=== PATIENT | male | born 1955 | race Caucasian/White ===

== ENCOUNTER → 2016-06-09 | Outpatient (CLI) | payer OTHER ==
[~2016-06-09] MED LIST: ACET-1256 PO; ASPI325T45 PO; ASPI81TA28 PO; BETA SITOSTEROL PO; CZR25 PO; DICY10CA55 PO; DOCU100C PO; GARL1200 PO; GARL705C PO; LOSA1TAB PO; MISCCAP80 PO; MULT-506 PO; NTRGSL/4 UT; RED1CAP5 PO; SAW160CA5 PO; SAW160TA PO; [UNRECOGNIZED DRUG - OTHER] PO
== END | disposition home or self-care (01) ==
LOC: C.PATHSPEC 18:05
PROVIDERS: ATTEND Dermatology
DX: L57.0 Actinic keratosis (principal)

== ENCOUNTER → 2016-07-03 | Outpatient (CLI) | payer OTHER ==
--- NOTE | 2016-07-03 18:15 | DIAGNOSTIC IMAGING REPORT ---
CT OF THE ABDOMEN AND PELVIS WITHOUT CONTRAST CLINICAL HISTORY: Left lower quadrant pain. COMPARISON STUDY: CT of the abdomen and pelvis July 06, 2014. TECHNIQUE: Axial images of the abdomen and pelvis were obtained without IV contrast. Images were reviewed in the axial, sagittal, and coronal planes. FINDINGS: No renal, ureteral or bladder calculi are present. There is no hydronephrosis or hydroureter. Evaluation of the abdomen and pelvis is multiple this unenhanced exam. The liver, spleen, adrenal glands and pancreas are unremarkable. There is no evidence for a bowel obstruction. The appendix is normal. There is colonic diverticulosis without evidence for acute diverticulitis. There is moderate vascular calcification. No suspicious skeletal lesions are identified. There is no lymphadenopathy or ascites. There is no biliary or pancreatic ductal dilatation. IMPRESSION: 1. No urinary calculi or hydronephrosis. 2. Suboptimal evaluation of the abdomen and pelvis given the lack of IV and oral contrast but no acute findings identified. Electronically signed by: Adrian Nunez M.D. 07/03/2016 6:13 PM Dictated Date/Time: 07/03/2016 6:09 PM
== END | disposition home or self-care (01) ==
LOC: C.CTS 17:36
PROVIDERS: ATTEND Family Medicine
DX: R10.32 Left lower quadrant pain (principal); K57.92 Diverticulitis of intestine, part unspecified, without perforation or abscess without bleeding

== ENCOUNTER 2016-09-22 12:25 | Emergency (ER) | payer OTHER ==
[~2016-09-22] VITALS: Ht 172.7 cm; Wt 70.5 kg
[~2016-09-22 12:25] MED LIST changes: -ASPI81TA28 PO; -CZR25 PO; -DICY10CA55 PO; -DOCU100C PO; -GARL1200 PO; -MISCCAP80 PO; -RED1CAP5 PO; -SAW160TA PO; -[UNRECOGNIZED DRUG - OTHER] PO
[2016-09-22 12:29] VITALS: TEMP 36.5; Ht 172.7 cm; Wt 70.5 kg
[2016-09-22] MEDS ORDERED: OPTIRAY 320 IV PRN (13:00)
[2016-09-22 13:25] LABS: BASO % 0.6 %; BASO ABS # 0.03 K/uL (0-0.2); COMPLETE YES; EOS % 1.6 %; HEMATOCRIT 42.5 % (42-52); LYMPH % 29.1 %; LYMPH ABS # 1.43 K/uL (1.2-3.4); MEAN CORPUSCULAR HEMOGLOBIN 31.6 pg (25-34); MEAN CORPUSCULAR HGB CONC 34.4 g/dl (32-36); MEAN PLATELET VOLUME 9.6 fL (7.4-10.4); NEUT % 59.7 %; PLATELET COUNT 279 K/uL (130-400); RED BLOOD COUNT 4.62 M/uL (4.7-6.1); WHITE BLOOD COUNT 4.91 K/uL (4.8-10.8)
[2016-09-22] MEDS ORDERED: SAW160TA PO (13:38)
[2016-09-22] MEDS ORDERED: ASPI81TA28 PO (13:38)
[2016-09-22] MEDS ORDERED: MULT-506 PO (13:38)
[2016-09-22] MEDS ORDERED: GARL1200 PO (13:38)
[2016-09-22] MEDS ORDERED: [UNRECOGNIZED DRUG - OTHER] PO (13:38)
[2016-09-22] MEDS ORDERED: RED1CAP5 PO (13:38)
[2016-09-22] MEDS ORDERED: NTRGSL/4 UT (13:38)
[2016-09-22] MEDS ORDERED: CZR25 PO (13:38)
[2016-09-22 13:42] LABS: BUN/CREATININE RATIO 11.5 (10-20); CALCIUM 9.1 mg/dl (8.5-10.1); CREATININE 1.1 mg/dl (0.60-1.40); POTASSIUM 4.5 mmol/L (3.5-5.1)
[2016-09-22 13:45] LABS: ALB/GLOB RATIO 1.1 (0.9-2)
--- NOTE | 2016-09-22 14:20 | EMERGENCY ROOM VISIT NOTE ---
History First contact with patient: 12:32 Chief Complaint: ABDOMINAL PAIN Stated Complaint: STOMACH PAIN Nursing Triage Summary: pt reports left abd pain started a couple days ago and has hx of diverticulitis. denies any n/v/d History of Present Illness The patient is a 61 year old male who presents to the Emergency Room with complaints of left lower quadrant abdominal pain for "a few days". The patient states last month, he experienced an episode of the same type of pain. The patient does report a history of diverticulitis which was diagnosed approximately 10-15 years ago, and states the symptoms have felt similar in the past. The patient describes episodic pain, lasting approximately one week at a time. The pain does come and go while he is having these episodes. He states he has been eating a high-fiber diet and taking probiotics, as his dentist put him on doxycycline approximately one week ago for a dental infection. The patient states he did see his dentist today, who recommended he discontinue the doxycycline due to his abdominal pain. The patient denies diarrhea, constipation, fever, chills, nausea, vomiting, and states his bowel movements have been normal. The patient did not eat any foods yesterday, and feels that a part of his abdominal pain could be related to not having food in his stomach. The patient denies tenderness on palpation, and describes the pain as achy/dull and 6/10. The patient states the pain localizes in the left lower quadrant, but does spread throughout the entire abdomen. He states he has not been able to find aggravating factors for his discomfort, but does state lying still alleviates the pain. The patient last had a colonoscopy 8-10 years ago in [place]. The patient states he did have a CT scan of the abdomen completed approximately one month ago, but this was done without IV or oral contrast, and the radiologist was unable to accurately interpret bowel disease on the scan. Review of Systems A complete 10 point review of systems was reviewed with the patient with pertinent positives and negatives as per history of present illness. All else were negative. Past Medical/Surgical History Medical Problems: (1) Ac Myocardial Infarct,Subendo Infarct,Initial Epis (2) Benign hypertension (3) Cardiac stent placement (4) Coronary Atherosclerosis Of [place] Coronary Vessel (5) Diverticulitis Colon (W/O Ment Of Hemorrhage) (6) Diverticulosis Colon (W/O Ment Of Hemorrhage) (7) Heart disease (8) Pneumonia Family History Hypertension Social History Smoking Status: Never Smoker Alcohol Use: heavy Drug Use: none Marital Status: Occupation Status: employed Current/Historical Medications Scheduled Aspirin (Aspirin Ec), 81 MG PO DAILY Garlic (Garlic), 2 CAP PO DAILY Losartan Potassium (Losartan Potassium), 25 MG PO DAILY Multivitamin (Multivitamin), 1 TAB PO DAILY Nitroglycerin (Nitrostat), 0.4 MG UT PRN Red Yeast Rice Extract (Red Yeast Rice), 1 CAP PO DAILY Saw [place] ([place]ren[place]ens) (Saw [place]), 160 MG PO DAILY [Beta Sisterol], 1 TAB PO DAILY Allergies Coded Allergies: Sulfa Drugs (Verified Allergy, Mild, 10/18/15) Atorvastatin (Verified Allergy, Unknown, mental disturabances, 10/18/15) Ciprofloxacin (Verified Allergy, Unknown, SHORTNESS OF BREATH, 10/18/15) Metronidazole (Verified Adverse Reaction, Intermediate, COBNFUSION, 10/18/15 ) Physical Exam Vital Signs Date Time Temp Pulse Resp B/P (MAP) Pulse Ox O2 Delivery O2 Flow Rate FiO2 09/22/16 17:39 55 16 147/91 99 09/22/16 16:22 72 20 144/88 99 Room Air 09/22/16 14:20 56 16 135/88 99 Room Air 09/22/16 12:29 36.5 61 18 125/82 98 Room Air Physical Exam VITALS: Vitals are noted on the nurse's note and reviewed by myself. Vital signs stable. GENERAL: This is a 61-year-old male, in no acute distress, nondiaphoretic, well- developed well-nourished. SKIN: The skin was without rashes, erythema, edema, or bruising. There is no tenting of the skin. Capillary reflex less than 2 seconds. HEAD: Normocephalic atraumatic. EARS: External auditory canals clear, tympanic membranes pearly hurd without erythema or effusion bilaterally. EYES: Pupils equal round and reactive to light and accommodation. Conjunctivae without injection, sclerae without icterus. Extraocular movements intact. NOSE: Patent, turbinates without inflammation or discharge. No sinus tenderness. MOUTH: Mucous membranes moist. Tonsils are not enlarged. Pharynx without erythema or exudate. Uvula midline. Airway patent. Tongue does not deviate. NECK: Supple without nuchal rigidity. No lymphadenopathy. No thyromegaly. Cervical spine is nontender. No JVD. HEART: Regular rate and rhythm without murmurs gallops or rubs. LUNGS: Clear to auscultation bilaterally without wheezes, rales or rhonchi. No dullness to percussion. No retractions or accessory muscle use. ABDOMEN: Positive bowel sounds x 4. Normal tympanic percussion. Soft, nontender, without masses or organomegaly. Hall sign negative. No guarding or rebound tenderness. MUSCULOSKELETAL: No muscle atrophy, erythema, or edema noted. Full range of motion without joint tenderness in all extremities. No tenderness to palpation. Normal gait. Strength 5/5 throughout. NEURO: Patient was alert and oriented to person place and time. Normal sensation to light and sharp touch. Deep tendon reflexes 2+ throughout. No focal neurological deficits. Medical Decision & Procedures ER Provider Diagnostic Interpretation: LABS: CBC without leukocytosis, anemia, thrombocytopenia. Lipase negative. CMP without abnormalities in the renal or hepatic function. Electrolytes normal. CT Scan Abd/Pelvis with IV and PO Contrast: FINDINGS: Lower chest: The heart is normal in size and configuration, without pericardial effusion. The lung bases and pleural spaces are clear. Liver: The contrast-enhanced liver is normal in size, contour, and attenuation. There is no intrahepatic biliary ductal dilatation. The hepatic veins and portal veins are patent. Gallbladder: Unremarkable. Spleen: Normal in size and attenuation. Pancreas: Unremarkable. Adrenal glands: Unremarkable. Kidneys: There is symmetric renal cortical enhancement. The kidneys are normal in size without hydronephrosis. Bowel: There are no transition zones indicate bowel obstruction. There is colonic diverticulosis. There is no evidence of acute diverticulitis. The appendix is not visualized with certainty. There are no findings to indicate acute appendicitis. Peritoneum: There is no intraperitoneal free air or abdominal ascites. There is a small fat-containing umbilical hernia. Vasculature: The abdominal aorta is normal in course and caliber. Adenopathy: None. Pelvic viscera: The prostate is mildly prominent. There are prostatic calcifications present. Skeletal structures: No destructive osseous lesions are seen. IMPRESSION: 1. No evidence of bowel obstruction. No evidence of free air 2. Diverticulosis. No evidence of acute diverticulitis 3. There are no findings to indicate acute appendicitis. Laboratory Results 09/22/16 13:15 Red Blood Count 4.62, Mean Corpuscular Volume 92.0, Mean Corpuscular Hemoglobin 31.6, Mean Corpuscular Hemoglobin Concent 34.4, Mean Platelet Volume 9.6, Neutrophils (%) (Auto) 59.7, Lymphocytes (%) (Auto) 29.1, Monocytes (%) (Auto) 9.0, Eosinophils (%) (Auto) 1.6, Basophils (%) (Auto) 0.6, Neutrophils # (Auto) 2.93, Lymphocytes # (Auto) 1.43, Monocytes # (Auto) 0.44, Eosinophils # (Auto) 0.08, Basophils # (Auto) 0.03 09/22/16 13:15 Test 09/22/16 13:15 White Blood Count 4.91 K/uL (4.8-10.8) Red Blood Count 4.62 M/uL (4.7-6.1) Hemoglobin 14.6 g/dL (14.0-18.0) Hematocrit 42.5 % (42-52) Mean Corpuscular Volume 92.0 fL (80-100) Mean Corpuscular Hemoglobin 31.6 pg (25-34) Mean Corpuscular Hemoglobin Concent 34.4 g/dl (32-36) Platelet Count 279 K/uL (130-400) Mean Platelet Volume 9.6 fL (7.4-10.4) Neutrophils (%) (Auto) 59.7 % Lymphocytes (%) (Auto) 29.1 % Monocytes (%) (Auto) 9.0 % Eosinophils (%) (Auto) 1.6 % Basophils (%) (Auto) 0.6 % Neutrophils # (Auto) 2.93 K/uL (1.4-6.5) Lymphocytes # (Auto) 1.43 K/uL (1.2-3.4) Monocytes # (Auto) 0.44 K/uL (0.11-0.59) Eosinophils # (Auto) 0.08 K/uL (0-0.5) Basophils # (Auto) 0.03 K/uL (0-0.2) RDW Standard Deviation 41.2 fL (36.4-46.3) RDW Coefficient of Variation 12.2 % (11.5-14.5) Immature Granulocyte % (Auto) 0.0 % Immature Granulocyte # (Auto) 0.00 K/uL (0.00-0.02) Anion Gap 4.0 mmol/L (3-11) Est Creatinine Clear Calc Drug Dose 69.9 ml/min Estimated GFR () 84.7 Estimated GFR (Non- 73.1 BUN/Creatinine Ratio 11.5 (10-20) Calcium Level 9.1 mg/dl (8.5-10.1) Total Bilirubin 0.5 mg/dl (0.2-1) Aspartate Amino Transf (AST/SGOT) 20 U/L (15-37) Alanine Aminotransferase (ALT/SGPT) 26 U/L (12-78) Alkaline Phosphatase 64 U/L (45-117) Total Protein 7.3 gm/dl (6.4-8.2) Albumin 3.8 gm/dl (3.4-5.0) Globulin 3.5 gm/dl (2.5-4.0) Albumin/Globulin Ratio 1.1 (0.9-2) Lipase 107 U/L (73-393) Medical Decision The patient was seen and evaluated as above. He presented with left lower quadrant abdominal pain for the past few days. The patient is concerned that this could be a flareup of his previously diagnosed diverticulitis. Labs, CT of the abdomen and pelvis with IV and oral contrast were ordered. I reviewed all labs, and discussed the findings with the patient. CT scan showed diverticulosis, but no diverticulitis or other acute findings. Differential diagnosis includes, but is not limited to: Diverticulitis, cholecystitis, appendicitis, viral gastroenteritis, IBS, nephrolithiasis, hydronephrosis, GERD, genitourinary causes, malignancy, and others. Based on the workup in the emergency department, I do feel that the patient's symptoms are likely related to possible viral infection other chronic problems, so I did encourage the patient to follow-up closely outpatient. Impression Primary Impression: Abdominal pain Departure Information Dispostion Home / Self-Care Condition GOOD Referrals Ned Singh D.O. (PCP) Patient Instructions ED Abdominal Pain Unkn Cause Male, My [facility] Additional Instructions You have been treated in the Emergency Department your Abdominal Pain. Laboratory results and imaging studies have ruled out any emergent causes for your abdominal pain which would warrant admission or surgery. For pain control, you can use the following [id number] medicines (if >12 yo): - Regular strength (325mg/tab) Tylenol (acetaminophen) 2 tabs every 4-6 hours as needed. Do not exceed 12 tablets in a 24 hour period. Avoid taking more than 4 grams (4000 mg) of Tylenol per day. This includes any other sources of acetaminophen you may take on a regular basis. - Regular strength (200 mg/tab) Advil (ibuprofen) 1-2 tabs every 4-6 hours as needed. Do not exceed a dose of 3200 mg per day. Drink plenty of water and stay well hydrated. As with any trip to the Emergency Department, you should follow-up with your Primary Care Provider from today's visit. You may want to consider contacting a chemical plant technical director for further evaluation of your symptoms, and if you are due for a repeat colonoscopy. Return to the emergency department if your symptoms persist despite treatment plan outlined above or if the following symptoms occur: increased fevers, chills , worsening nausea/vomiting, blood in your stool or urine. Problem Qualifiers Primary Impression: Abdominal pain Abdominal location: left lower quadrant Qualified Codes: R10.32 - Left lower quadrant pain
--- NOTE | 2016-09-22 16:11 | DIAGNOSTIC IMAGING REPORT ---
CT ABD/PELVIS IV AND ORAL CONT CLINICAL HISTORY: Left lower quadrant abdominal pain. History of diverticulitis. COMPARISON STUDY: 07/03/2016 TECHNIQUE: Following the IV administration of 120 mL of Optiray-320, CT scan of the abdomen and pelvis was performed from the lung bases to the proximal femurs. Images are reviewed in the axial, sagittal, and coronal planes. IV contrast was administered without complication. A dose lowering technique was utilized adhering to the principles of ALARA. CT DOSE: 293.31 mGy.cm FINDINGS: Lower chest: The heart is normal in size and configuration, without pericardial effusion. The lung bases and pleural spaces are clear. Liver: The contrast-enhanced liver is normal in size, contour, and attenuation. There is no intrahepatic biliary ductal dilatation. The hepatic veins and portal veins are patent. Gallbladder: Unremarkable. Spleen: Normal in size and attenuation. Pancreas: Unremarkable. Adrenal glands: Unremarkable. Kidneys: There is symmetric renal cortical enhancement. The kidneys are normal in size without hydronephrosis. Bowel: There are no transition zones indicate bowel obstruction. There is colonic diverticulosis. There is no evidence of acute diverticulitis. The appendix is not visualized with certainty. There are no findings to indicate acute appendicitis. Peritoneum: There is no intraperitoneal free air or abdominal ascites. There is a small fat-containing umbilical hernia. Vasculature: The abdominal aorta is normal in course and caliber. Adenopathy: None. Pelvic viscera: The prostate is mildly prominent. There are prostatic calcifications present. Skeletal structures: No destructive osseous lesions are seen. IMPRESSION: 1. No evidence of bowel obstruction. No evidence of free air 2. Diverticulosis. No evidence of acute diverticulitis 3. There are no findings to indicate acute appendicitis. Electronically signed by: Graham Archibald M.D. 09/22/2016 4:09 PM Dictated Date/Time: 09/22/2016 4:06 PM
[2016-09-22 17:39] VITALS: BP 147/91; PULSE 55; O2SAT 99
== END 2016-09-22 17:40 | disposition home or self-care (01) ==
LOC: C.EDB 12:26 → C.EDC 17:40
DX: R10.32 Left lower quadrant pain (principal); I25.2 Old myocardial infarction; I10 Essential (primary) hypertension; I25.10 Atherosclerotic heart disease of native coronary artery without angina pectoris; K57.32 Diverticulitis of large intestine without perforation or abscess without bleeding; Z87.01 Personal history of pneumonia (recurrent); Z82.49 Family history of ischemic heart disease and other diseases of the circulatory system; Z79.82 Long term (current) use of aspirin; Z79.899 Other long term (current) drug therapy

== ENCOUNTER 2016-10-15 04:20 | Emergency (ER) | payer OTHER ==
[~2016-10-15] VITALS: Ht 172.7 cm; Wt 72.1 kg
[~2016-10-15 04:20] MED LIST changes: -ACET-1256 PO; -ASPI325T45 PO; +ASPI81TA28 PO; -BETA SITOSTEROL PO; +CZR25 PO; +GARL1200 PO; -GARL705C PO; -LOSA1TAB PO; +RED1CAP5 PO; -SAW160CA5 PO; +SAW160TA PO; +[UNRECOGNIZED DRUG - OTHER] PO
[2016-10-15 04:24] VITALS: Ht 172.7 cm; Wt 72.1 kg
[2016-10-15] MEDS ORDERED: SODIUM CHLORIDE 0.9% 1000ML 1,000 ML IV STA ×2 (04:40)
[2016-10-15] MEDS ORDERED: DICYCLOMINE HCL 10 MG/ML 2 ML AMP IM ONE (04:45)
[2016-10-15 05:01] LABS: BASO % 0.5 %; BASO ABS # 0.03 K/uL (0-0.2); COMPLETE YES; EOS % 2.3 %; HEMATOCRIT 41.3 % (42-52); IG% 0.3 %; LYMPH % 31.4 %; LYMPH ABS # 2.04 K/uL (1.2-3.4); MEAN CELL VOLUME 91.8 fL (80-100); MEAN CORPUSCULAR HEMOGLOBIN 30.9 pg (25-34); MEAN CORPUSCULAR HGB CONC 33.7 g/dl (32-36); MEAN PLATELET VOLUME 9.7 fL (7.4-10.4); MONO % 10.3 %; NEUT % 55.2 %; PLATELET COUNT 297 K/uL (130-400)
[2016-10-15 05:20] LABS: ALT/SGPT 25 U/L (12-78); AST/SGOT 19 U/L (15-37); BLOOD UREA NITROGEN 13 mg/dl (7-18); CALCIUM 8.9 mg/dl (8.5-10.1); CARBON DIOXIDE 28 mmol/L (21-32); CHLORIDE 107 mmol/L (98-107); GLUCOSE 99 mg/dl (70-99); POTASSIUM 3.6 mmol/L (3.5-5.1); SODIUM 141 mmol/L (136-145)
[2016-10-15 05:24] LABS: ALKALINE PHOSPHATASE 74 U/L (45-117)
--- NOTE | 2016-10-15 05:43 | EMERGENCY ROOM VISIT NOTE ---
History First contact with patient: 04:31 Chief Complaint: ABDOMINAL PAIN Stated Complaint: RAPID HEART BEAT,COLD CHILLS,ABDOMINAL PAIN Nursing Triage Summary: c/o left lower abd pain x 1 week with nausea and constipation. LBM today. History of Present Illness The patient is a 61 year old male who presents to the Emergency Room with complaints of ongoing left lower quadrant abdominal cramping for the past week and a half. Patient has seen [facility] in the past. He describes pain as cramping, ranging in severity 2 out of 10. Nothing makes it better or worse. It does not radiate. This is at the left lower quadrant. He had a negative colonoscopy in the past for polyps. He does have diverticulosis. He's had diverticulitis. This feels different. He had a CAT scan here in this facility a few days ago that was negative. Patient also saw the family care doctor yesterday. He had further blood work done. Patient denies chest pain, dyspnea , fever, chills, cough, congestion, vomiting, diarrhea, back pain, penile pain, testicular pain, urinary symptoms. Review of Systems See HPI for pertinent positives & negatives. A total of 10 systems reviewed and were otherwise negative. Past Medical/Surgical History Medical Problems: (1) Ac Myocardial Infarct,Subendo Infarct,Initial Epis (2) Benign hypertension (3) Cardiac stent placement (4) Coronary Atherosclerosis Of [place] Coronary Vessel (5) Diverticulitis Colon (W/O Ment Of Hemorrhage) (6) Diverticulosis Colon (W/O Ment Of Hemorrhage) (7) Heart disease (8) Pneumonia Family History Hypertension Social History Smoking Status: Former Smoker Alcohol Use: heavy Drug Use: none Marital Status: Occupation Status: employed Current/Historical Medications Scheduled Aspirin (Aspirin Ec), 81 MG PO DAILY Garlic (Garlic), 2 CAP PO DAILY Losartan Potassium (Losartan Potassium), 25 MG PO DAILY Multivitamin (Multivitamin), 1 TAB PO DAILY Nitroglycerin (Nitrostat), 0.4 MG UT PRN Red Yeast Rice Extract (Red Yeast Rice), 1 CAP PO DAILY Saw [place] (Serenoa Repens) (Saw [place]), 160 MG PO DAILY [Beta Sisterol], 1 TAB PO DAILY Allergies Coded Allergies: Sulfa Drugs (Verified Allergy, Mild, 10/18/15) Atorvastatin (Verified Allergy, Unknown, mental disturabances, 10/18/15) Ciprofloxacin (Verified Allergy, Unknown, SHORTNESS OF BREATH, 10/18/15) Metronidazole (Verified Adverse Reaction, Intermediate, COBNFUSION, 10/18/15 ) Physical Exam Vital Signs Date Time Temp Pulse Resp B/P (MAP) Pulse Ox O2 Delivery O2 Flow Rate FiO2 10/15/16 05:04 56 18 139/89 98 Room Air 10/15/16 04:57 Room Air 10/15/16 04:57 Room Air 10/15/16 04:24 36.5 73 16 150/95 98 Room Air Physical Exam VITALS: Vitals are noted on the nurse's note and reviewed by myself. Vital signs stable. GENERAL:pleasant male, in no acute distress, nondiaphoretic, well-developed well -nourished. SKIN: The skin was without rashes, erythema, edema, or bruising. There is no tenting of the skin. Capillary reflex less than 2 seconds. HEAD: Normocephalic atraumatic. EARS: External auditory canals clear, tympanic membranes pearly hurd without erythema or effusion bilaterally. EYES: Pupils equal round and reactive to light and accommodation. Conjunctivae without injection, sclerae without icterus. Extraocular movements intact. NOSE: Patent, turbinates without inflammation or discharge. MOUTH: Mucous membranes moist. Pharynx without erythema or exudate. Uvula midline. Airway patent. Tongue does not deviate. NECK: Supple without nuchal rigidity. No lymphadenopathy. No thyromegaly. Cervical spine is nontender. No JVD. HEART: Regular rate and rhythm without murmurs gallops or rubs. LUNGS: Clear to auscultation bilaterally without wheezes, rales or rhonchi. No dullness to percussion. No retractions or accessory muscle use. ABDOMEN: Positive bowel sounds x 4. Normal tympanic percussion. Soft, nontender, without masses or organomegaly. Hall sign negative. No guarding or rebound tenderness. no CVA tenderness MUSCULOSKELETAL: No muscle atrophy, erythema, or edema noted. NEURO: Patient was alert and oriented to person place and time. Normal sensation to light and sharp touch. No focal neurological deficits. Medical Decision & Procedures Laboratory Results 10/15/16 04:35 Red Blood Count 4.50, Mean Corpuscular Volume 91.8, Mean Corpuscular Hemoglobin 30.9, Mean Corpuscular Hemoglobin Concent 33.7, Mean Platelet Volume 9.7, Neutrophils (%) (Auto) 55.2, Lymphocytes (%) (Auto) 31.4, Monocytes (%) (Auto) 10.3, Eosinophils (%) (Auto) 2.3, Basophils (%) (Auto) 0.5, Neutrophils # (Auto ) 3.59, Lymphocytes # (Auto) 2.04, Monocytes # (Auto) 0.67, Eosinophils # (Auto ) 0.15, Basophils # (Auto) 0.03 10/15/16 04:35 Test 10/15/16 04:35 10/15/16 04:44 White Blood Count 6.50 K/uL (4.8-10.8) Red Blood Count 4.50 M/uL (4.7-6.1) Hemoglobin 13.9 g/dL (14.0-18.0) Hematocrit 41.3 % (42-52) Mean Corpuscular Volume 91.8 fL (80-100) Mean Corpuscular Hemoglobin 30.9 pg (25-34) Mean Corpuscular Hemoglobin Concent 33.7 g/dl (32-36) Platelet Count 297 K/uL (130-400) Mean Platelet Volume 9.7 fL (7.4-10.4) Neutrophils (%) (Auto) 55.2 % Lymphocytes (%) (Auto) 31.4 % Monocytes (%) (Auto) 10.3 % Eosinophils (%) (Auto) 2.3 % Basophils (%) (Auto) 0.5 % Neutrophils # (Auto) 3.59 K/uL (1.4-6.5) Lymphocytes # (Auto) 2.04 K/uL (1.2-3.4) Monocytes # (Auto) 0.67 K/uL (0.11-0.59) Eosinophils # (Auto) 0.15 K/uL (0-0.5) Basophils # (Auto) 0.03 K/uL (0-0.2) RDW Standard Deviation 41.1 fL (36.4-46.3) RDW Coefficient of Variation 12.2 % (11.5-14.5) Immature Granulocyte % (Auto) 0.3 % Immature Granulocyte # (Auto) 0.02 K/uL (0.00-0.02) Anion Gap 6.0 mmol/L (3-11) Est Creatinine Clear Calc Drug Dose 69.9 ml/min Estimated GFR () 84.7 Estimated GFR (Non- 73.1 BUN/Creatinine Ratio 12.0 (10-20) Calcium Level 8.9 mg/dl (8.5-10.1) Total Bilirubin 0.2 mg/dl (0.2-1) Direct Bilirubin < 0.1 mg/dl (0-0.2) Aspartate Amino Transf (AST/SGOT) 19 U/L (15-37) Alanine Aminotransferase (ALT/SGPT) 25 U/L (12-78) Alkaline Phosphatase 74 U/L (45-117) Troponin I < 0.015 ng/ml (0-0.045) Total Protein 7.3 gm/dl (6.4-8.2) Albumin 3.7 gm/dl (3.4-5.0) Lipase 109 U/L (73-393) Bedside Lactic Acid Venous 0.82 mmol/L (0.90-1.70) Medications Administered Medications (Trade) Dose Ordered Sig/Josephine Route Start Time Stop Time Status Last Admin Dose Admin Sodium Chloride 1,000 ml @ 999 mls/hr Q1H1M STAT IV 10/15/16 04:40 10/15/16 05:40 10/15/16 05:05 999 MLS/HR ED Course Prior records/ancillary studies reviewed. Triage Nursing notes reviewed. The patient's history was concerning for abdominal pain. Differential diagnosis: Etiologies such as IBS, appendicitis, diverticulitis, PUD, biliary pathology, UTI, pancreatitis, obstruction, mesenteric ischemia, aortic pathology, infections, inflammatory bowel disease, renal colic, as well as others were entertained. Physical examination findings: As above. ER treatment provided: Bentyl, IV fluids On reassessment the patient felt better. Diagnostics interpreted by me: ECG: Normal sinus, normal nose, left axis deviation, no acute ST-T wave changes. Impression normal sinus rhythm with a left axis deviation interpreted by myself unchanged from prior per chart review The labs revealed no leukocytosis. Negative lactic acid. Imaging studies: CT scan from a few days ago was reviewed and negative Exam and history seem consistent with abdominal cramping that could be related to IBS. Patient had a CT scan a few days ago that was negative. He had no pain on exam. He is well-appearing. He felt better after the Bentyl. He is advised to follow-up with his GI doctor in a few days or here in the ER sooner for vomiting, fevers, vomiting, worsening signs or symptoms or as needed. He was advised to take medications as directed and do a bland diet. By the evaluation outlined above emergent etiologies such as appendicitis, diverticulitis, PUD, biliary pathology, UTI, pancreatitis, obstruction, mesenteric ischemia, aortic pathology, infections, inflammatory bowel disease, renal colic, as well as others were deemed relatively unlikely. The pt informed about the findings as listed above. All questions were answered and pleased with the treatment. Return instructions were outlined and the patient was discharged in stable condition. Outpatient prescription management: Bentyl Referral: The patient was referred back to their primary care physician and GI for follow- up in 2 to 3 days for a recheck of the current condition. Case reviewed with my attending Medical Decision as above Impression Primary Impression: Abdominal cramping Departure Information Dispostion Home / Self-Care Condition GOOD Referrals Ned Singh D.O. (PCP) Patient Instructions [facility] Additional Instructions Bentyl 10 m tablet every 6-8 hours as needed for abdominal cramping. Recommend bland diet. Rest and drink plenty of fluids as tolerated. Continue current medications. Avoid strenuous activities and anything that worsens your pain. Resume normal activities once your symptoms resolve. Return to the ER immediately for worsening or abdominal pain, vomiting, fevers , chest pains, difficulty breathing, worsening of your condition, or as needed. Follow up with your primary physician and GI doctor in 2-3 days for a recheck of your current condition. Let them know that you were in the ER.
[2016-10-15] MEDS ORDERED: DICY10CA55 PO (05:44)
[2016-10-15] MEDS ORDERED: BENTYL HOME PACK 10 MG VIAL PO ONE (05:45)
[2016-10-15 05:46] VITALS: TEMP 36.5
[2016-10-15] MEDS ORDERED: MISCCAP80 PO (05:54)
[2016-10-15] MEDS ORDERED: DOCU100C PO (05:56)
[2016-10-15 06:27] VITALS: BP 128/79; PULSE 58; O2SAT 98
== END 2016-10-15 06:17 | disposition home or self-care (01) ==
LOC: C.EDB 04:21 → C.EDA 06:17
DX: R10.32 Left lower quadrant pain (principal); I25.10 Atherosclerotic heart disease of native coronary artery without angina pectoris; I10 Essential (primary) hypertension; Z95.5 Presence of coronary angioplasty implant and graft; Z87.01 Personal history of pneumonia (recurrent); Z82.49 Family history of ischemic heart disease and other diseases of the circulatory system; Z87.891 Personal history of nicotine dependence; Z79.82 Long term (current) use of aspirin; Z79.899 Other long term (current) drug therapy

== ENCOUNTER 2017-06-01 02:28 | Emergency (ER) | payer OTHER ==
[~2017-06-01] VITALS: Ht 172.7 cm; Wt 74.1 kg
[~2017-06-01 02:28] MED LIST changes: +DOCU100C PO; +MISCCAP80 PO
[2017-06-01 02:37] VITALS: BP 151/98; PULSE 72; TEMP 36.7; O2SAT 97; Ht 172.7 cm; Wt 74.1 kg
[2017-06-01] MEDS ORDERED: DOXY100C PO (03:04)
--- NOTE | 2017-06-01 08:13 | EMERGENCY ROOM VISIT NOTE ---
ED Visit Note First contact with patient: 02:41 CHIEF COMPLAINT: Tick bite HISTORY OF PRESENT ILLNESS: This 62-year-old male patient presents to the emergency department after they noticed a tick embedded on the left side of the abdomen. The patient did try to remove it. It had been on for less than 24 hours. The patient's tetanus shot is reportedly up-to-date. The patient denies any rashes, fevers, chills, or lightheadedness. The patient denies joint tenderness. REVIEW OF SYSTEMS: A 6 system review of systems was completed with positives and pertinent negatives listed in the HPI. ALLERGIES: See EMR MEDICATIONS: See EMR PMH: see EMR SOCIAL HISTORY: Lives locally PHYSICAL EXAM: Vital Signs: Reviewed Nurse's notes, vital signs stable. GENERAL : White male, in no acute distress, well-developed, well-nourished. SKIN: There is no tick embedded in the patient's left side abdomen as clinically concerned, however there is an area of inflammation and circular rash around where the stick was reported to be located..The skin is otherwise clear. NEUROLOGICAL: Alert and oriented to person place and time, cooperative. Sensory and motor functions grossly intact. ED COURSE: I examined the patient. He appears to have removed a tick from his left side abdominal wall with subsequent irritation of the skin. The patient is requesting doxycycline, and will be given a short course of this. he was otherwise to follow with his primary care physician for further management. He was otherwise invited back to the ER with any new, worsening, or concerning symptoms. Problem List Medical Problems: (1) Ac Myocardial Infarct,Subendo Infarct,Initial Epis Status: Resolved (2) Benign hypertension Status: Chronic (3) Cardiac stent placement Status: Resolved (4) Coronary Atherosclerosis Of [place] Coronary Vessel Status: Chronic (5) Diverticulitis Colon (W/O Ment Of Hemorrhage) Status: Resolved (6) Diverticulosis Colon (W/O Ment Of Hemorrhage) Status: Chronic (7) Heart disease Status: Chronic (8) Pneumonia Status: Resolved Current/Historical Medications Scheduled Aspirin (Aspirin Ec), 81 MG PO DAILY Doxycycline Hyclate (Vibramycin), 100 MG PO BID Garlic (Garlic), 2 CAP PO DAILY Losartan Potassium (Losartan Potassium), 25 MG PO DAILY Multivitamin (Multivitamin), 1 TAB PO DAILY Nitroglycerin (Nitrostat), 0.4 MG UT PRN Probiotic Product (Probiotic), 1 CAP PO DAILY Saw [place] ([place] Repens) (Saw [place]), 160 MG PO DAILY [Beta Sisterol], 1 TAB PO DAILY Scheduled PRN Docusate Sodium (Stool Softener), 100 MG PO DAILY PRN for Constipation Allergies Coded Allergies: Sulfa Drugs (Verified Allergy, Mild, 06/01/17) Atorvastatin (Verified Allergy, Unknown, mental disturabances, 06/01/17) Ciprofloxacin (Verified Allergy, Unknown, SHORTNESS OF BREATH, 06/01/17) Metronidazole (Verified Adverse Reaction, Intermediate, COBNFUSION, ) Vital Signs Date Time Temp Pulse Resp B/P (MAP) Pulse Ox O2 Delivery O2 Flow Rate FiO2 06/01/17 02:37 36.7 72 18 151/98 97 Room Air Departure Information Impression Primary Impression: Tick bite Dispostion Home / Self-Care Condition GOOD Prescriptions Doxycycline Hyclate (VIBRAMYCIN) 100 Mg Cap 100 MG PO BID for 7 Days, #14 CAP Prov: Chaz Lucero PA-C 06/01/17 Referrals Ned Singh D.O. Forms HOME CARE DOCUMENTATION FORM, IMPORTANT VISIT INFORMATION Patient Instructions My [facility] Additional Instructions You were seen and evaluated today on an emergency basis only. This is not a substitute for, or an effort to provide, complete comprehensive medical care. It is not possible to recognize and treat all injuries or illnesses in a single emergency department visit. For this reason it is recommended that you followup with your primary care physician with any ongoing or persisting symptoms. Take doxycycline 100 mg twice daily for the next 7 days You are welcome to return to the emergency department anytime with new, worsening, or concerning symptoms.
== END 2017-06-01 03:14 | disposition home or self-care (01) ==
LOC: C.EDB 02:29 → C.EDA 03:14
DX: S30.861A Insect bite (nonvenomous) of abdominal wall, initial encounter (principal); W57.XXXA Bitten or stung by nonvenomous insect and other nonvenomous arthropods, initial encounter; I10 Essential (primary) hypertension; I25.10 Atherosclerotic heart disease of native coronary artery without angina pectoris; Z95.5 Presence of coronary angioplasty implant and graft; Z88.2 Allergy status to sulfonamides; Z88.1 Allergy status to other antibiotic agents; Z88.8 Allergy status to other drugs, medicaments and biological substances

== ENCOUNTER → 2017-06-18 | Outpatient (CLI) | payer OTHER ==
[~2017-06-18] MED LIST changes: -RED1CAP5 PO
[2017-06-18 12:30] LABS: HEMATOCRIT 44.9 % (42-52); HEMOGLOBIN 14.7 g/dL (14.0-18.0); MEAN CELL VOLUME 92.4 fL (80-100); MEAN CORPUSCULAR HEMOGLOBIN 30.2 pg (25-34); MEAN CORPUSCULAR HGB CONC 32.7 g/dl (32-36); PLATELET COUNT 298 K/uL (130-400); RED CELL DISTRIBUTION WIDTH CV 12.8 % (11.5-14.5); RED CELL DISTRIBUTION WIDTH SD 43.5 fL (36.4-46.3); WHITE BLOOD COUNT 4.72 K/uL (4.8-10.8)
[2017-06-18 13:35] LABS: ALBUMIN 3.9 gm/dl (3.4-5.0); ALT/SGPT 33 U/L (12-78); AST/SGOT 24 U/L (15-37); BLOOD UREA NITROGEN 23 mg/dl (7-18); CALCIUM 8.6 mg/dl (8.5-10.1); CARBON DIOXIDE 27 mmol/L (21-32); CREATININE 1.17 mg/dl (0.60-1.40); GLUCOSE 94 mg/dl (70-99); SODIUM 139 mmol/L (136-145)
[2017-06-18 13:49] LABS: ALKALINE PHOSPHATASE 66 U/L (45-117); TOTAL PROTEIN 7.4 gm/dl (6.4-8.2)
== END | disposition home or self-care (01) ==
LOC: C.LAB1850 10:58
PROVIDERS: ATTEND Internal Medicine Cardiovascular Disease
DX: E78.5 Hyperlipidemia, unspecified (principal); I10 Essential (primary) hypertension; A69.20 Lyme disease, unspecified

== ENCOUNTER 2021-01-23 17:21 | Inpatient (IN) ==
--- NOTE | 2021-01-23 17:40 | Emergency Department Note ---
Impression & Plan Precordial chest pain, History of OK (myocardial infarction), Elevated troponin ED Provider Note NAME: FRANCESCO STEVENS AGE: 65 SEX: M : 1955 ARRIVES VIA: Ambulance INFORMANT: [Patient][ems] ED PROVIDER(S): [Yony Muñiz MD] CHIEF COMPLAINT: Chest pain HISTORY OF PRESENT ILLNESS: The patient is a 65-year-old male with known coronary disease. He had an OK abo ut 10 years ago and has 1 coronary stent. Patient was biking around 60 to 70 miles a week for some time but then injured his meniscus. He has been really not very active lately. Patient states that for 5 days, he has had episodes of chest pain that goes to his arms. He describes it as pressure and almost a sensation of rawness to his lungs. The patient states the episodes of discomfort come on with exertion. Patient states that today, a short time ago, he tried to walk outside. Within about 50 yards of his walk, he developed pressure across his chest and arms. He felt short of breath. No sweating or nausea. He took a nitroglycerin and within 15 minutes, symptoms resolved. He presents by EMS. The patient did see cardiology yesterday. They were in the process of arranging a stress test. The patient states that his symptoms feel similar to when he had his heart attack around 10 years ago. The patient is vaccinated for COVID-19. REVIEW OF SYSTEMS: See HPI for pertinent positives and negatives. A total of ten systems were reviewed and were otherwise negative. PMHx/PSHx: See Below SOCIAL HISTORY: See Below. PHYSICAL EXAM: GENERAL: Patient is in no acute distress. HEENT: No acute trauma, normocephalic atraumatic, mucous membranes moist, no nasal congestion, no scleral icterus. NECK: No stridor, no adenopathy, no meningismus, trachea is midline. LUNGS: Clear to auscultation bilaterally, no wheeze, no rhonchi, breath sounds equal. HEART: Without murmurs gallops or rubs, regular rate and rhythm. ABDOMEN: Soft, nontender, bowel sounds positive, no hernias, no peritonitis. EXTREMITIES: No cyanosis or edema, full range of motion of all the joints witho ut pain or difficulty, no signs for acute trauma. NEUROLOGIC: Oriented x 3, no acute motor or sensory deficits, no focal weakness. SKIN: No rash, no jaundice, no diaphoresis. DIFFERENTIAL DIAGNOSIS: Cardiac ischemia, aortic dissection, pulmonary embolism, pneumothorax, pneumo yuval, pericarditis, myocarditis, esophageal rupture, GERD, cholecystitis, pancreatitis, musculoskeletal, as well as other pathologies. EMERGENCY DEPARTMENT COURSE/PROCEDURES: ECG: Indication was chest pain. The ECG shows a normal sinus rhythm with a rate of 71. There is some LVH present. There is no ST elevation, no PVCs. The QTc is 406. Continuous Cardiac Monitoring: An order was placed for continuous cardiac monitoring. The monitor shows a rate of 73 with normal sinus rhythm. MEDICAL DECISION MAKING: There is no leukocytosis. A very mild anemia was noted. There is a normal platelet count. No coagulopathy. No significant electrolyte abnormality or kidney failure. No concerning liver enzyme elevation. No evidence for pancreatitis. ECG showed a normal sinus rhythm, no obvious ischemia. Cardiac enzyme testing x1 was somewhat elevated. This troponin elevation is consistent with cardiac injury or strain. Covid testing returned negative. Chest x-ray did not show pneumonia, mediastinal widening or pneumothorax. Patient presents with an episode of exertional chest pain which resolved with nitroglycerin. The patient has known coronary disease and presents with chest pain which sounds cardiac in nature. He does have an elevated cardiac troponin. Admission/observation is warranted. The patient was given oral aspirin, nitroglycerin paste. I did speak with the patient and case management. The on-call hospitalist was consulted. Past Med/Surg History Medical History Abdominal pain Anxiety Chest pain Chest pain Chills Corneal abrasion, left Dyslipidemia Elevated lipase Groin rash Heart palpitations Hx of coronary artery disease Hx of myocardial infarction Hypertension Palpitations Palpitations Surgical History Hx of heart artery stent Family History (Updated 01/23/21 @ 21:20 by Yancy Orr MD) Father , Age 42 from an [place] Coronary heart disease Other Family history non-contributory No family history of adverse response to anesthesia No family history of bleeding disorder Social History Smoking Status: Former smoker Hx Alcohol Use: Yes Alcohol type: wine Alcohol Intake Frequency Comment: 1 GLASS WINE Hx Substance Use: No Preferred Language: Burmese marital status: Current Living Situation: Alone current occupational status: employed Feels Safe at Home: Yes Allergies Allergies Allergy/AdvReac Type Severity Reaction Status Date / Time atorvastatin Allergy Unknown mental Verified 10/15/20 14:48 disturabances ciprofloxacin Allergy Unknown SHORTNESS Verified 01/23/21 17:49 OF BREATH metronidazole AdvReac Intermediate COBNFUSION Verified 01/23/21 17:49 Sulfa Drugs Allergy Unknown Uncoded 01/23/21 17:49 Home Meds Home Medications Medication Instructions Recorded Confirmed garlic 1,000 mg capsule 2,000 mg PO DAILY 02/11/18 01/23/21 montelukast 10 mg tablet 10 mg PO DAILY 02/11/18 01/23/21 multivitamin 1 tab PO DAILY 02/11/18 01/23/21 saw palmetto 160 mg capsule 160 mg PO DAILY 02/11/18 01/23/21 fluticasone propionate 110 2 puff INHALATION BID PRN 09/13/18 01/23/21 mcg/actuation HFA aerosol inhaler (Flovent HFA) aspirin 81 mg tablet,delayed 81 mg PO DAILY 01/23/21 01/23/21 release (Aspirin Low Dose) nitroglycerin 0.4 mg sublingual 0.4 mg SUBLINGUAL UD PRN 01/23/21 01/23/21 tablet Previous Rx's Medication Instructions Recorded cyclobenzaprine 5 mg tablet 5 mg PO TID PRN #30 tab 02/15/18 atorvastatin 10 mg tablet 10 mg PO Q OTHER DAY #90 tab 03/28/20 losartan 25 mg tablet 25 mg PO BID #180 tab 01/22/21 Results & Data (ED) Vital Signs Vital Signs - 24 hr 01/23/21 17:23 01/23/21 18:43 Temperature 36.8 C Temperature Source Oral Pulse Rate 72 Pulse Rate [Right Finger] 73 71 Pulse Rhythm [Right Finger] Regular Regular Pulse Strength [Right Finger] Normal Normal Respiratory Rate 16 16 Respiratory Effort / Characteristics Non-Labored Non-Labored Respiratory Depth Normal Normal Respiratory Pattern Regular Blood Pressure 142/90 H Blood Pressure [Right Arm] 129/88 138/97 Blood Pressure Mean 107 Blood Pressure Mean [Right Arm] 101 110 Blood Pressure Position Lying Blood Pressure Position [Right Arm] Sitting Pulse Oximetry 98 99 Oxygen Delivery Method Room Air Room Air Sepsis Recent Fever Within 48 Hours No Sepsis New/Unexplained Change in Mental Status No Sepsis Action Taken by Nursing No Action Required Home Medications Current Medication List: was personally reviewed by me Laboratory Data Attestation: I reviewed the patient's lab results. Result diagrams: 01/23/21 17:30 01/23/21 17:30 Lab Results 01/23/21 01/23/21 01/23/21 Range/Units 17:30 17:30 17:37 WBC 5.36 (4.8-10.8) K/uL RBC 4.54 L (4.7-6.1) M/uL Hgb 13.9 L (14.0-18.0) g/dL Hct 42.3 (42-52) % MCV 93.2 (80-100) fL MCH 30.6 (25-34) pg MCHC 32.9 (32-36) g/dL RDW Std Deviation 43.1 (36.4-46.3) fL RDW Coeff of Vielka 12.5 (11.5-14.5) % Plt Count 291 (130-400) K/uL MPV 9.9 (7.4-10.4) fL Immature Gran % (Auto) 0.4 % Neut % (Auto) 62.0 % Lymph % (Auto) 26.5 % Rich % (Auto) 8.2 % Eos % (Auto) 2.2 % Baso % (Auto) 0.7 % Neut # (Auto) 3.32 (1.4-6.5) K/uL Lymph # (Auto) 1.42 (1.2-3.4) K/uL Rich # (Auto) 0.44 (0.11-0.59) K/uL Eos # (Auto) 0.12 (0-0.5) K/uL Baso # (Auto) 0.04 (0-0.2) K/uL Immature Gran # (Auto) 0.02 (0.00-0.02) K/uL PT 11.5 (9.0-12.0) Seconds INR 1.1 (0.9-1.1) Sodium 141 (136-145) mmol/L Potassium 4.2 (3.5-5.1) mmol/L Chloride 109 H (98-107) mmol/L Carbon Dioxide 27 (21-32) mmol/L Anion Gap 4.0 (3-11) BUN 14 (7-18) mg/dl Creatinine 1.16 (0.6-1.4) mg/dl Est Cr Clr Drug Dosing 63.0 ml/min Est GFR ( Amer) 77.2 ml/min Est GFR (Non-Af Amer) 66.7 ml/min BUN/Creatinine Ratio 12.4 (10-20) Glucose 112 H (70-99) mg/dl Calcium 8.8 (8.5-10.1) mg/dl Total Bilirubin 0.3 (0.2-1) mg/dl AST 18 (15-37) U/L ALT 29 (12-78) Alkaline Phosphatase 57 (45-117) U/L Troponin I 0.112 H* (0-0.045) ng/ml Total Protein 6.9 (6.4-8.2) gm/dl Albumin 3.5 (3.4-5.0) gm/dl Globulin 3.4 (2.5-4.0) gm/dl Albumin/Globulin Ratio 1.0 (0.9-2) Lipase 118 (73-393) U/L SARS-CoV-2, RNA, NAAT (NEGATIVE) 01/23/21 Range/Units 17:43 WBC (4.8-10.8) K/uL RBC (4.7-6.1) M/uL Hgb (14.0-18.0) g/dL Hct (42-52) % MCV (80-100) fL MCH (25-34) pg MCHC (32-36) g/dL RDW Std Deviation (36.4-46.3) fL RDW Coeff of Vielka (11.5-14.5) % Plt Count (130-400) K/uL MPV (7.4-10.4) fL Immature Gran % (Auto) % Neut % (Auto) % Lymph % (Auto) % Rich % (Auto) % Eos % (Auto) % Baso % (Auto) % Neut # (Auto) (1.4-6.5) K/uL Lymph # (Auto) (1.2-3.4) K/uL Rich # (Auto) (0.11-0.59) K/uL Eos # (Auto) (0-0.5) K/uL Baso # (Auto) (0-0.2) K/uL Immature Gran # (Auto) (0.00-0.02) K/uL PT (9.0-12.0) Seconds INR (0.9-1.1) Sodium (136-145) mmol/L Potassium (3.5-5.1) mmol/L Chloride (98-107) mmol/L Carbon Dioxide (21-32) mmol/L Anion Gap (3-11) BUN (7-18) mg/dl Creatinine (0.6-1.4) mg/dl Est Cr Clr Drug Dosing ml/min Est GFR ( Amer) ml/min Est GFR (Non-Af Amer) ml/min BUN/Creatinine Ratio (10-20) Glucose (70-99) mg/dl Calcium (8.5-10.1) mg/dl Total Bilirubin (0.2-1) mg/dl AST (15-37) U/L ALT (12-78) Alkaline Phosphatase (45-117) U/L Troponin I (0-0.045) ng/ml Total Protein (6.4-8.2) gm/dl Albumin (3.4-5.0) gm/dl Globulin (2.5-4.0) gm/dl Albumin/Globulin Ratio (0.9-2) Lipase (73-393) U/L SARS-CoV-2, RNA, NAAT NEGATIVE (NEGATIVE) Administered Medications Heparin Sodium/Dextrose (Heparin Sodium/Dextrose) 25,000 units in 500 mls @ 16 mls/hr IV .Q24H [place]; Protocol Stop: 02/22/21 18:59 Last Admin: 01/23/21 19:20 Dose: 800 units/hr, 16 mls/hr Documented by: [id number] Cosigned by: [id number] Discontinued Medications Aspirin (Aspirin Chew 324 Mg) 324 mg PO NOW STA Stop: 01/23/21 18:33 Last Admin: 01/23/21 18:45 Dose: 324 mg Documented by: [id number] Heparin Sodium/Dextrose (Heparin Iv Adult Wt-Based Low-Dose *No* Bolus Protocol) 1 ea IV Q1H [place]; Protocol Stop: 02/22/21 18:52 Last Admin: 01/23/21 19:17 Dose: 1 ea Documented by: [id number] Heparin Sodium/Dextrose (Heparin 81746 Unit/500 Ml D5w) Confirm Administered Dose 25,000 units IV .STK-MED ONE Stop: 01/23/21 19:07 Last Admin: 01/23/21 20:15 Dose: Not Given Documented by: [id number] Nitroglycerin (Nitroglycerin 2% Ointment 30gm Tube) 1 inch EXT NOW STA Stop: 01/23/21 18:33 Last Admin: 01/23/21 18:45 Dose: 1 inch Documented by: [id number] Imaging Data Radiologist's Impression: Chest X-Ray 01/23/21 17:35 XR chest 1V portable HISTORY: 65 years-old Male Chest Pain Acute atypical chest pain COMPARISON: 07/28/2020 TECHNIQUE: Portable AP view of the chest FINDINGS: Cardiac silhouette is upper limits of normal in size. Coronary arterial stent. No pneumothorax, pleural effusion, airspace consolidation or overt pulmonary edema.. Bones appear grossly intact. Healed chronic left clavicular fracture. IMPRESSION: No acute process. ACT 112: Negative or not required by law. The above report was generated using voice recognition software. It may contain grammatical, syntax or spelling errors. Electronically signed by: Pedro Russo M.D. 01/23/2021 5:58 PM Discharge Plan Visit Data Chief Complaint: Chest Pain Stated Complaint: SOB, CHEST PAIN ED Provider: Yony Muñiz Discharge Problem: Precordial chest pain, History of [place] (myocardial infarction), Elevated troponin Patient Disposition: Admitted As Inpatient Condition: Fair
[2021-01-23 17:41] LABS: Basophils # (auto) 0.04 K/uL (0-0.2); Basophils % (auto) 0.7 %; Eosinophils # (auto) 0.12 K/uL (0-0.5); Eosinophils % (auto) 2.2 %; Hematocrit (blood only) 42.3 % (42-52); Hemoglobin 13.9 g/dL (14.0-18.0); Immature Granulocytes # (auto) 0.02 K/uL (0.00-0.02); Immature Granulocytes % (auto) 0.4 %; Lymphocytes # (auto) 1.42 K/uL (1.2-3.4); Lymphocytes % (auto) 26.5 %; Mean Corpuscular Hemoglobin 30.6 pg (25-34); Mean Corpuscular Hgb Conc 32.9 g/dL (32-36); Mean Corpuscular Volume 93.2 fL (80-100); Mean Platelet Volume 9.9 fL (7.4-10.4); Monocytes # (auto) 0.44 K/uL (0.11-0.59); Monocytes % (auto) 8.2 %; Neutrophils # (auto) 3.32 K/uL (1.4-6.5); Platelet Count 291 K/uL (130-400); RDW Coefficient of Variation 12.5 % (11.5-14.5); RDW Standard Deviation 43.1 fL (36.4-46.3); Red Blood Count 4.54 M/uL (4.7-6.1); White Blood Count 5.36 K/uL (4.8-10.8)
[2021-01-23 17:57] LABS: Albumin Level 3.5 gm/dl (3.4-5.0); BUN Creatinine Ratio 12.4 (10-20); Calcium 8.8 mg/dl (8.5-10.1); Est GFR (African American) 77.2 ml/min; Est GFR (Non-African American) 66.7 ml/min; Potassium 4.2 mmol/L (3.5-5.1)
--- NOTE | 2021-01-23 17:59 | XRay Report ---
XR chest 1V portable HISTORY: 65 years-old Male Chest Pain Acute atypical chest pain COMPARISON: 07/28/2020 TECHNIQUE: Portable AP view of the chest FINDINGS: Cardiac silhouette is upper limits of normal in size. Coronary arterial stent. No pneumothorax, pleur al effusion, airspace consolidation or overt pulmonary edema.. Bones appear grossly intact. Healed ch ronic left clavicular fracture. IMPRESSION: No acute process. ACT 112: Negative or not required by law. The above report was generated using voice recognition software. It may contain grammatical, syntax o r spelling errors. Electronically signed by: Pedro Russo M.D. 01/23/2021 5:58 PM
[2021-01-23 18:15] LABS: Bilirubin,Total 0.3 mg/dl (0.2-1); Total Protein 6.9 gm/dl (6.4-8.2)
[2021-01-23 18:22] LABS: Globulin 3.4 gm/dl (2.5-4.0); Troponin I 0.112 ng/ml (0-0.045)
[2021-01-23] MEDS ORDERED: ASPIRIN CHEW 324 MG PO STA (18:32)
[2021-01-23] MEDS ORDERED: NITROGLYCERIN 2% OINTMENT 30GM TUBE EXT STA (18:32)
[2021-01-23] MEDS ORDERED: Heparin IV Adult Wt-Based Low-Dose *NO* Bolus Protocol IV SCH (18:53)
[2021-01-23] MEDS ORDERED: HEPARIN SODIUM/DEXTROSE 25,000 UNITS/500 ML BAG IV SCH (19:00)
[2021-01-23] MEDS ORDERED: HEPARIN 25000 UNIT/500 ML D5W IV ONE (19:06)
[2021-01-23 19:14] LABS: INR 1.1 (0.9-1.1); Prothrombin Time 11.5 Seconds (9.0-12.0)
--- NOTE | 2021-01-23 19:25 | History & Physical Report ---
Date of Service January 23, 2021 Assessment & Plan (1) Unstable angina: Plan: Patient presents with chest pain and pressure that has occurred at rest and with exertion, with elevated troponin on arrival-he has history of CAD with stent to LCX - Patient will be admitted for evaluation of his chest pain/pressure - Will place on heparin drip at this time for low dose no bolus - Cardiology evaluation for interventional assessment in the cath suite - ASA daily - Continue -- if chest pain re-occurs he has his SL nitro and if persistent can add on NTG drip - Troponin I trend q6 hours with ECG - NPO after mn - LR at 80ml/hr after midnight - Risk factors- previous smoker, HTN, HLD, previous MN and stents -Check lipid panel in the morning (2) Elevated troponin I level: Plan: As above- Trend and follow - likely related to NStemi with known cardiac disease (3) Allergic rhinitis: Plan: Continue montelukast and fluticasone (4) Hypertension: Plan: Continu ARB- follow renal function (5) Dyslipidemia: Plan: Continue with Atorvastatin (6) Hx of coronary artery disease: Plan: Cardiac catheterization with total mid left circumflex marginal occlusion. 2.25 x 14 mm bare-metal stent. There was a 30-40% mid LAD stenosis and a 70% mid ramus stenosis. LV ejection fraction 55%. - ASA, statin, consider adding BB upon discharge History of Present Illness Chief Complaint: chest pain Primary Care Provider: Ned Singh, DO 65 YOM with past medical history of: CAD with stent (2010- LT cx bare metal), MN (2010 anterolateral), HTN, HLD. Patient follows with Dr Juan for cardiology. Patient comes in today for increase in chest pressure in the left upper side of his chest that radiates down both of his arms. This has also been associated with decrease in activity as well as dyspnea and one episode of dizziness this morning. This has been occuring over the past 2 weeks, but has gotten worse over the past 2 days. This pain has been occurring yesterday and today when he has gotten up to go to the bathroom and up and down steps. Today it occurred with both activity and at rest. He took one dose NTG today for his pain. He has not taken a NTG since his admission in 2010. Patient also feels this is the same discomfort that he was having in 2010 with his MN. He did see Dr. Juan yesterday and did have a stress test ordered as outpatient at that time. Patel mittal had a normal stress ECHO in April 2020. In the EMD the patient had ECG done that shows no dynamic ECG changes but with T wave flattening and inversion in inferior leads, he also had Troponin I drawn that was elevated 0.112. In the EMD he received 4 81mg ASA and nitropaste. Patient will be admitted for monitoring of his troponin, ECG and chest pain. Will start the patient on heparin drip as possible director of cardiac cath lab evaluation is likely. Will consult Cardiology and keep patient NPO after midnight. Patient COVID test on admission is: NEGATIVE Allergies Allergy/AdvReac Type Severity Reaction Status Date / Time atorvastatin Allergy Unknown mental Verified 10/15/20 14:48 disturabances ciprofloxacin Allergy Unknown SHORTNESS Verified 01/23/21 17:49 OF BREATH metronidazole AdvReac Intermediate COBNFUSION Verified 01/23/21 17:49 Sulfa Drugs Allergy Unknown Uncoded 01/23/21 17:49 Home Medications Medication Instructions Recorded Confirmed Type garlic 1,000 mg capsule 2,000 mg PO DAILY 02/11/18 01/23/21 History montelukast 10 mg tablet 10 mg PO DAILY 02/11/18 01/23/21 History multivitamin 1 tab PO DAILY 02/11/18 01/23/21 History saw palmetto 160 mg capsule 160 mg PO DAILY 02/11/18 01/23/21 History cyclobenzaprine 5 mg tablet 5 mg PO TID PRN #30 tab 02/15/18 01/23/21 Rx fluticasone propionate 110 2 puff INHALATION BID PRN 09/13/18 01/23/21 History mcg/actuation HFA aerosol inhaler (Flovent HFA) atorvastatin 10 mg tablet 10 mg PO Q OTHER DAY #90 tab 03/28/20 01/23/21 Rx losartan 25 mg tablet 25 mg PO BID #180 tab 01/22/21 01/23/21 Rx aspirin 81 mg tablet,delayed 81 mg PO DAILY 01/23/21 01/23/21 History release (Aspirin Low Dose) nitroglycerin 0.4 mg sublingual 0.4 mg SUBLINGUAL UD PRN 01/23/21 01/23/21 History tablet Past Med/Surg History Medical History Abdominal pain Anxiety Chest pain Chest pain Chills Corneal abrasion, left Dyslipidemia Elevated lipase Groin rash Heart palpitations Hx of coronary artery disease Hx of myocardial infarction Hypertension Palpitations Palpitations Surgical History Hx of heart artery stent Family History (Updated 01/23/21 @ 21:20 by Yancy Orr MD) Father , Age 42 from an MN Coronary heart disease Other Family history non-contributory No family history of adverse response to anesthesia No family history of bleeding disorder Social History Smoking Status: Former smoker Hx Alcohol Use: Yes Alcohol type: wine Alcohol Intake Frequency Comment: 1 GLASS WINE Hx Substance Use: No Preferred Language: Arabic marital status: Current Living Situation: Alone current occupational status: employed Feels Safe at Home: Yes Review of Systems Review of Systems: REVIEW OF SYSTEMS: Constitutional: No fever, sweats or chills Eyes: No diplopia, no worsening or blurred vision ENT: normal hearing, no trouble swallowing Respiratory: (+) dyspnea, No cough, sputum, Cardiovascular: (+) chest pain at rest and exertion, tightness or palpitations Abdomen: No pain, nausea, vomiting, diarrhea or constipation Musculoskeletal: (+) meniscus tear and pain, No joint pain, calf pain, swelling Neurologic: No weakness, numbness/tingling, or balance problems Psychiatric: No anxiety or depression Skin: No rash or itch Physical Exam Physical Exam: PHYSICAL EXAM: General: awake, alert, no apparent distress Head: Normocephalic, atraumatic ENT: PERRL, EOMI, no pharyngeal exudate, mucous membranes moist Neuro: AAO x 3, speech clear and appropriate, strength intact bilaterally 5/5, sensation intact and equal all extremities and dermatomes, no pronator drift Chest: equal rise and fall of the chest, no accessory muscle use, no heaves or thrills, Clear to auscultation, on room air Cardiac: Regular rate and rhythm, telemetry reviewed- NSR without ectopy, skin warm dry, cap refill <3 seconds, peripheral pulses +2 no JVD, no murmur, no edema GI: NABS x 4 quadrants, soft, nontender to palpation, no rebound, guarding or tenderness : Spontaneously voiding, no pain, no CVA tenderness, Extremities: Normal inspection, no peripheral edema or erythema, calfs nontender to palpation Psych: Normal mood and affect Skin: no rash or erythema Results & Data Results & Data ([facility]) Vital Signs (Past 12 Hours) Vital Signs Temp Pulse Pulse Resp BP BP Pulse Ox 01/23/21 18:43 71 16 138/97 99 01/23/21 17:23 36.8 C 72 73 16 142/90 H 129/88 98 Laboratory Results Abnormal lab results 01/23/21 01/23/21 Range/Units 17:30 17:30 RBC 4.54 L (4.7-6.1) M/uL Hgb 13.9 L (14.0-18.0) g/dL Chloride 109 H (98-107) mmol/L Glucose 112 H (70-99) mg/dl Troponin I 0.112 H* (0-0.045) ng/ml Diagnostic Findings Chest X-Ray 01/23/21 17:35 XR chest 1V portable HISTORY: 65 years-old Male Chest Pain Acute atypical chest pain COMPARISON: 07/28/2020 TECHNIQUE: Portable AP view of the chest FINDINGS: Cardiac silhouette is upper limits of normal in size. Coronary arterial stent. No pneumothorax, pleural effusion, airspace consolidation or overt pulmonary edema.. Bones appear grossly intact. Healed chronic left clavicular fracture. IMPRESSION: No acute process. ACT 112: Negative or not required by law. The above report was generated using voice recognition software. It may contain grammatical, syntax or spelling errors. Electronically signed by: Pedro Russo M.D. 01/23/2021 5:58 PM Medications Administered Home Medications garlic 1,000 mg capsule 2,000 mg PO DAILY 02/11/18 [History Confirmed 01/23/21] montelukast 10 mg tablet 10 mg PO DAILY 02/11/18 [History Confirmed 01/23/21] multivitamin 1 tab PO DAILY 02/11/18 [History Confirmed 01/23/21] saw palmetto 160 mg capsule 160 mg PO DAILY 02/11/18 [History Confirmed 01/23/21] cyclobenzaprine 5 mg tablet 5 mg PO TID PRN #30 tab 02/15/18 [Rx Confirmed 01/23/21] fluticasone propionate 110 mcg/actuation HFA aerosol inhaler (Flovent HFA) 2 puff INHALATION BID PRN 09/13/18 [History Confirmed 01/23/21] atorvastatin 10 mg tablet 10 mg PO Q OTHER DAY #90 tab 03/28/20 [Rx Confirmed 01/23/21] losartan 25 mg tablet 25 mg PO BID #180 tab 01/22/21 [Rx Confirmed 01/23/21] aspirin 81 mg tablet,delayed release (Aspirin Low Dose) 81 mg PO DAILY 01/23/21 [History Confirmed 01/23/21] nitroglycerin 0.4 mg sublingual tablet 0.4 mg SUBLINGUAL UD PRN 01/23/21 [History Confirmed 01/23/21] Active Medications Heparin Sodium/Dextrose (Heparin Iv Adult Wt-Based Low-Dose *No* Bolus Protocol) 1 ea IV Q1H [place]; Protocol Stop: 02/22/21 18:52 Heparin Sodium/Dextrose (Heparin Sodium/Dextrose) 25,000 units in 500 mls @ 0.02 mls/hr IV .Q24H [place]; Protocol Stop: 02/22/21 18:59 Discontinued Medications Aspirin (Aspirin Chew 324 Mg) 324 mg PO NOW STA Stop: 01/23/21 18:33 Last Admin: 01/23/21 18:45 Dose: 324 mg Documented by: [id number] Nitroglycerin (Nitroglycerin 2% Ointment 30gm Tube) 1 inch EXT NOW STA Stop: 01/23/21 18:33 Last Admin: 01/23/21 18:45 Dose: 1 inch Documented by: [id number] ECG Additional Comments: Normal sinus rhythm Left axis deviation Minimal voltage criteria for LVH, may be normal variant Abnormal ECG When compared with ECG of 28-JUL-2020 04:36, T wave inversion now evident in Inferior osmany Code Status & VTE Plan Code Status CODE: FULL VTE: SCDs, Heparin drip, asa VTE Prophylaxis Plan VTE Prophylaxis will be ordered: Yes Supervising Physician Co-Signing Physician Notes SUPERVISOR STRIPPING Supervision note: I have personally seen and examined the patient and discussed and verified the kothari points of the history and physical along with the plan with TEJAL Hartmann with the following exceptions and/or additions: Patient presents with progressively worsening chest pain with exertion becoming more frequent in the last 1 to 2 weeks that is associated with shortness of breath. He typically bikes 60 to 70 miles per week and is very active and this is highly unusual for him. He admits that he has not really been taking his statin drug at all. Patient is nervous about the possibility of having a cardiac catheterization. We did discuss risks and benefits and possible findings including need for possible transfer out for CT surgery if severe or multivessel disease found. History and ROS reviewed as above Vitals reviewed Gen: AAOx3, NAD HEENT: Anicteric sclerae, EOMI CV: RRR no mgr nl S1S2, no carotid bruits Pulm: CTAB no wcr Abd: +BS soft NT ND no masses or hernias, no abdominal bruits Ext: No edema Skin: No rashes, warm/dry Neuro: Full strength throughout Labs and rads reviewed ECG reviewed 65-year-old male with history of CAD status post stent, hyperlipidemia noncompliant with statin, HTN, former smoker, here with unstable angina. -Admit to PCU for telemetry monitoring -Trend serial troponin overnight -Consult cardiology-May need cardiac catheterization tomorrow -N.p.o. after midnight -Discontinue low-dose atorvastatin as he does not tolerate this and replaced with high intensity Crestor 20 mg daily -Check lipid panel in the morning -Continue Nitropaste, aspirin, ARB, and consider adding on beta-elsie if heart rate can tolerate it PG Care Time/CCT Total # of Minutes Spent Total Time Spent with Patient: Total time spent is greater than 50% in coordination of care (as documented) at patient's floor/unit and/or counseling patient: Coding Level of Care Code 65075 Initial Inpt Care Lvl 3 Diagnoses Elevated troponin I level R77.8 Unstable angina I20.0 Allergic rhinitis J30.9 Hypertension I10 Hypertension type: unspecified Dyslipidemia E78.5 Hx of coronary artery disease Z86.79 (1) Hypertension Hypertension type: unspecified Qualified Code(s): I10 - Essential (primary) hypertension
[2021-01-23 23:47] LABS: Partial Thromboplastin Ratio 2.1
[2021-01-24] MEDS ORDERED: NITROGLYCERIN SL 0.4 MG/TAB TAB SL PRN (00:02)
[2021-01-24] MEDS ORDERED: LOSARTAN POTASSIUM 25 MG TAB PO SCH (00:02)
[2021-01-24 00:07] LABS: Partial Thromboplastin Time 55.4 Seconds (21.0-31.0)
[2021-01-24] MEDS ORDERED: FLUTICASONE FUROATE 100MCG 14 PUFFS/INHALER INH PRN (01:24)
[2021-01-24] MEDS: LACTATED RINGER'S 1,000 ML IV SCH ×3 (01:26→18:19)
[2021-01-24] MEDS ORDERED: ACETAMINOPHEN 325 MG TAB PO PRN (01:43)
[2021-01-24] MEDS ORDERED: ACETAMINOPHEN 325 MG TAB ONE (01:49)
[2021-01-24] MEDS: NITROGLYCERIN 2% OINTMENT 30GM TUBE EXT SCH ×2 (02:00→06:36)
[2021-01-24 05:13] LABS: Basophils # (auto) 0.03 K/uL (0-0.2); Basophils % (auto) 0.4 %; Eosinophils # (auto) 0.15 K/uL (0-0.5); Eosinophils % (auto) 1.9 %; Hematocrit (blood only) 39.2 % (42-52); Immature Granulocytes # (auto) 0.02 K/uL (0.00-0.02); Immature Granulocytes % (auto) 0.3 %; Lymphocytes # (auto) 2.09 K/uL (1.2-3.4); Lymphocytes % (auto) 26.3 %; Mean Corpuscular Hemoglobin 31.1 pg (25-34); Mean Corpuscular Hgb Conc 33.2 g/dL (32-36); Mean Corpuscular Volume 93.8 fL (80-100); Mean Platelet Volume 9.8 fL (7.4-10.4); Monocytes % (auto) 8.8 %; Neutrophils # (auto) 4.95 K/uL (1.4-6.5); Neutrophils % (auto) 62.3 %; Platelet Count 280 K/uL (130-400); RDW Coefficient of Variation 12.8 % (11.5-14.5); RDW Standard Deviation 43.7 fL (36.4-46.3); Red Blood Count 4.18 M/uL (4.7-6.1); White Blood Count 7.94 K/uL (4.8-10.8)
[2021-01-24 05:45] LABS: BUN Creatinine Ratio 13.6 (10-20); Calcium 8.4 mg/dl (8.5-10.1); Creatinine Clr Calc Pharmacy 61.5 ml/min; Est GFR (African American) 74.9 ml/min; Est GFR (Non-African American) 64.6 ml/min; Magnesium 2.2 mg/dl (1.8-2.4); Potassium 3.9 mmol/L (3.5-5.1)
[2021-01-24 06:08] LABS: Troponin I 0.147 ng/ml (0-0.045)
[2021-01-24 06:15] LABS: Partial Thromboplastin Ratio 1.6; Partial Thromboplastin Time 42.1 Seconds (21.0-31.0)
--- NOTE | 2021-01-24 07:43 | Hospitalist Progress Note ---
Date of Service January 24, 2021 Assessment & Plan (1) Unstable angina: Plan: #Unstable angina Patient presents with chest pain and pressure that has occurred at rest and with exertion, with elevated troponin on arrival-he has history of CAD with stent to LCX - Admitted to telemetry - Continue heparin drip pending cardiac evaluation - Cardiology consulted -Planned diagnostic cath later today - ASA daily - EKG with chest pain, may have sublingual nitro after EKG obtained - Troponin I trend q6 hours with ECG - Has been n.p.o. since midnight - LR at 80ml/hr - Risk factors- previous smoker, HTN, HLD, previous [place] and stents #Elevated troponin level As above, ikely related to NStemi with known hx of cardiac disease - Trend and follow -trop: 0.112 -> 0.143 -> 0.147 #Allergic rhinitis Continue montelukast and fluticasone #Hypertension -Holding ARB for scheduled cath, resume after. #Dyslipidemia Lipid profile acceptable, triglycerides 53, cholesterol 133, LDL 69, HDL 53 -Previously did not tolerate statins, started on Crestor today #History of coronary artery disease Cardiac catheterization with total mid left circumflex marginal occlusion. 2.25 x 14 mm bare-metal stent. There was a 30-40% mid LAD stenosis and a 70% mid ramus stenosis. LV ejection fraction 55%. - ASA, statin, consider adding BB upon discharge FENa: N.p.o. Code Status: Full code DVT PPX: On heparin drip PT/OT: Not indicated at present Case Management: Discharge planning Dispo: Telemetry Juan Webb MD PGY 3, FCM This chart was completed utilizing echoecho voice recognition software. Grammatical errors, random word insertions, pronoun errors, and in complete sentences are an occasional consequence of the system. Any questions or concerns about the content, text, or information contained within the body of this dictation should be addressed directly to the physician for clarification. (2) Elevated troponin I level: (3) Allergic rhinitis: (4) Hypertension: (5) Dyslipidemia: (6) Hx of coronary artery disease: Admission and Anticipated Discharge Date Admission Date: January 23, 2021 Supervising Physician Co-Signing Physician Notes Resident Physician Supervision Note: I independently interviewed and examined the patient and verified the kothari history and physical, reviewed labs and image studies and agree with resident Dr. Lori Webb findings and care plan. Subjective Patient lying in bed in no acute distress. Patient has been n.p.o. since admission, previously he was tolerating his diet, voiding, stooling, sleeping well. He is nervous about his upcoming procedure. We spent some time reviewing the details of cardiac catheterization. Patient has no acute concerns or complaints at present. Review of Systems Review of Systems: All systems reviewed & are unremarkable except as noted in HPI & below Physical Exam Physical Exam: General: In no acute distress HEENT: Normocephalic atraumatic Neck: Normal visual inspection Cardiac: Regular rate and rhythm I do not appreciate significant murmurs rubs or gallops, normal S1, normal S2, negative pedal edema, negative calf tenderness Respiratory: Clear to auscultation bilaterally with symmetrical chest expansion and appreciate significant wheezes, rales, rhonchi GI: Soft, nontender, nondistended, bowel sounds present all 4 quadrants MSK: Moves all extremities Neuro: Alert oriented x4 Psych: Calm and cooperative with interview Results & Data Results & Data ([facility]) Vital Signs (Past 12 Hours) Vital Signs Temp Pulse Pulse Pulse Resp BP BP 01/24/21 06:10 36.3 C L 74 18 132/75 01/24/21 03:00 70 17 102/70 01/24/21 02:00 75 21 120/83 01/24/21 01:06 37.1 C 67 19 124/77 01/24/21 00:07 82 16 113/87 01/23/21 22:00 76 16 115/80 01/23/21 20:00 73 16 157/92 H Pulse Ox 01/24/21 06:10 98 01/24/21 03:00 94 01/24/21 02:00 95 01/24/21 01:06 96 01/24/21 00:07 98 01/23/21 22:00 96 01/23/21 20:00 97 Laboratory Results 01/24/21 01/24/21 01/24/21 Range/Units 05:54 04:58 04:58 WBC 7.94 (4.8-10.8) K/uL RBC 4.18 L (4.7-6.1) M/uL Hgb 13.0 L (14.0-18.0) g/dL Hct 39.2 L (42-52) % MCV 93.8 (80-100) fL MCH 31.1 (25-34) pg MCHC 33.2 (32-36) g/dL RDW Std Deviation 43.7 (36.4-46.3) fL RDW Coeff of Vielka 12.8 (11.5-14.5) % Plt Count 280 (130-400) K/uL MPV 9.8 (7.4-10.4) fL Immature Gran % (Auto) 0.3 % Neut % (Auto) 62.3 % Lymph % (Auto) 26.3 % [place] % (Auto) 8.8 % Eos % (Auto) 1.9 % Baso % (Auto) 0.4 % Neut # (Auto) 4.95 (1.4-6.5) K/uL Lymph # (Auto) 2.09 (1.2-3.4) K/uL [place] # (Auto) 0.70 H (0.11-0.59) K/uL Eos # (Auto) 0.15 (0-0.5) K/uL Baso # (Auto) 0.03 (0-0.2) K/uL Immature Gran # (Auto) 0.02 (0.00-0.02) K/uL PT (9.0-12.0) Seconds INR (0.9-1.1) APTT 42.1 H (21.0-31.0) Seconds PTT Ratio 1.6 Sodium 140 (136-145) mmol/L Potassium 3.9 (3.5-5.1) mmol/L Chloride 109 H (98-107) mmol/L Carbon Dioxide 27 (21-32) mmol/L Anion Gap 4.0 (3-11) BUN 16 (7-18) mg/dl Creatinine 1.19 (0.6-1.4) mg/dl Est Cr Clr Drug Dosing 61.5 ml/min Est GFR ( Amer) 74.9 ml/min Est GFR (Non-Af Amer) 64.6 ml/min BUN/Creatinine Ratio 13.6 (10-20) Glucose 130 H (70-99) mg/dl Calcium 8.4 L (8.5-10.1) mg/dl Magnesium 2.2 (1.8-2.4) mg/dl Total Bilirubin (0.2-1) mg/dl AST (15-37) U/L ALT (12-78) Alkaline Phosphatase (45-117) U/L Troponin I 0.147 H* (0-0.045) ng/ml Total Protein (6.4-8.2) gm/dl Albumin (3.4-5.0) gm/dl Globulin (2.5-4.0) gm/dl Albumin/Globulin Ratio (0.9-2) Triglycerides 53 (0-150) mg/dl Cholesterol 133 (0-200) mg/dl LDL Cholesterol, Calc 69 mg/dl VLDL Cholesterol, Calc 11 mg/dl HDL Cholesterol 53 mg/dl Cholesterol/HDL Ratio 3 Lipase (73-393) U/L SARS-CoV-2, RNA, NAAT (NEGATIVE) 01/23/21 01/23/21 01/23/21 Range/Units 23:18 23:18 17:43 WBC (4.8-10.8) K/uL RBC (4.7-6.1) M/uL Hgb (14.0-18.0) g/dL Hct (42-52) % MCV (80-100) fL MCH (25-34) pg MCHC (32-36) g/dL RDW Std Deviation (36.4-46.3) fL RDW Coeff of Vielka (11.5-14.5) % Plt Count (130-400) K/uL MPV (7.4-10.4) fL Immature Gran % (Auto) % Neut % (Auto) % Lymph % (Auto) % [place] % (Auto) % Eos % (Auto) % Baso % (Auto) % Neut # (Auto) (1.4-6.5) K/uL Lymph # (Auto) (1.2-3.4) K/uL [place] # (Auto) (0.11-0.59) K/uL Eos # (Auto) (0-0.5) K/uL Baso # (Auto) (0-0.2) K/uL Immature Gran # (Auto) (0.00-0.02) K/uL PT (9.0-12.0) Seconds INR (0.9-1.1) APTT 55.4 H* (21.0-31.0) Seconds PTT Ratio 2.1 Sodium (136-145) mmol/L Potassium (3.5-5.1) mmol/L Chloride (98-107) mmol/L Carbon Dioxide (21-32) mmol/L Anion Gap (3-11) BUN (7-18) mg/dl Creatinine (0.6-1.4) mg/dl Est Cr Clr Drug Dosing ml/min Est GFR ( Amer) ml/min Est GFR (Non-Af Amer) ml/min BUN/Creatinine Ratio (10-20) Glucose (70-99) mg/dl Calcium (8.5-10.1) mg/dl Magnesium (1.8-2.4) mg/dl Total Bilirubin (0.2-1) mg/dl AST (15-37) U/L ALT (12-78) Alkaline Phosphatase (45-117) U/L Troponin I 0.143 H* (0-0.045) ng/ml Total Protein (6.4-8.2) gm/dl Albumin (3.4-5.0) gm/dl Globulin (2.5-4.0) gm/dl Albumin/Globulin Ratio (0.9-2) Triglycerides (0-150) mg/dl Cholesterol (0-200) mg/dl LDL Cholesterol, Calc mg/dl VLDL Cholesterol, Calc mg/dl HDL Cholesterol mg/dl Cholesterol/HDL Ratio Lipase (73-393) U/L SARS-CoV-2, RNA, NAAT NEGATIVE (NEGATIVE) 01/23/21 01/23/21 01/23/21 Range/Units 17:37 17:30 17:30 WBC 5.36 (4.8-10.8) K/uL RBC 4.54 L (4.7-6.1) M/uL Hgb 13.9 L (14.0-18.0) g/dL Hct 42.3 (42-52) % MCV 93.2 (80-100) fL MCH 30.6 (25-34) pg MCHC 32.9 (32-36) g/dL RDW Std Deviation 43.1 (36.4-46.3) fL RDW Coeff of Vielka 12.5 (11.5-14.5) % Plt Count 291 (130-400) K/uL MPV 9.9 (7.4-10.4) fL Immature Gran % (Auto) 0.4 % Neut % (Auto) 62.0 % Lymph % (Auto) 26.5 % [place] % (Auto) 8.2 % Eos % (Auto) 2.2 % Baso % (Auto) 0.7 % Neut # (Auto) 3.32 (1.4-6.5) K/uL Lymph # (Auto) 1.42 (1.2-3.4) K/uL [place] # (Auto) 0.44 (0.11-0.59) K/uL Eos # (Auto) 0.12 (0-0.5) K/uL Baso # (Auto) 0.04 (0-0.2) K/uL Immature Gran # (Auto) 0.02 (0.00-0.02) K/uL PT 11.5 (9.0-12.0) Seconds INR 1.1 (0.9-1.1) APTT (21.0-31.0) Seconds PTT Ratio Sodium 141 (136-145) mmol/L Potassium 4.2 (3.5-5.1) mmol/L Chloride 109 H (98-107) mmol/L Carbon Dioxide 27 (21-32) mmol/L Anion Gap 4.0 (3-11) BUN 14 (7-18) mg/dl Creatinine 1.16 (0.6-1.4) mg/dl Est Cr Clr Drug Dosing 63.0 ml/min Est GFR ( Amer) 77.2 ml/min Est GFR (Non-Af Amer) 66.7 ml/min BUN/Creatinine Ratio 12.4 (10-20) Glucose 112 H (70-99) mg/dl Calcium 8.8 (8.5-10.1) mg/dl Magnesium (1.8-2.4) mg/dl Total Bilirubin 0.3 (0.2-1) mg/dl AST 18 (15-37) U/L ALT 29 (12-78) Alkaline Phosphatase 57 (45-117) U/L Troponin I 0.112 H* (0-0.045) ng/ml Total Protein 6.9 (6.4-8.2) gm/dl Albumin 3.5 (3.4-5.0) gm/dl Globulin 3.4 (2.5-4.0) gm/dl Albumin/Globulin Ratio 1.0 (0.9-2) Triglycerides (0-150) mg/dl Cholesterol (0-200) mg/dl LDL Cholesterol, Calc mg/dl VLDL Cholesterol, Calc mg/dl HDL Cholesterol mg/dl Cholesterol/HDL Ratio Lipase 118 (73-393) U/L SARS-CoV-2, RNA, NAAT (NEGATIVE) Medications Administered Current Inpatient Medications Acetaminophen (Acetaminophen 325 Mg Tab) 650 mg PO Q4H PRN PRN Reason: Pain Stop: 02/23/21 01:42 Aspirin (Aspirin 81 Mg Ectab) 81 mg PO DAILY [facility] Stop: 02/23/21 08:59 Fluticasone Furoate (Fluticasone Furoate 100mcg 14 Puffs/Inhaler) 1 puffs INH DAILY PRN PRN Reason: Shortness Of Breath Or Wheezing Stop: 02/23/21 01:23 Heparin Sodium/Dextrose (Heparin Sodium/Dextrose) 25,000 units in 500 mls @ 17 mls/hr IV .Q24H [place]; Protocol Stop: 02/22/21 18:59 Last Titration: 01/24/21 06:30 Dose: 850 units/hr, 17 mls/hr Documented by: Lactated Ringer's (Lr) 1,000 mls @ 80 mls/hr IV .[id number] [facility] Stop: 02/23/21 00:59 Last Admin: 01/24/21 01:26 Dose: 80 mls/hr Documented by: Losartan Potassium (Losartan Potassium 25 Mg Tab) 25 mg PO BID [place] Stop: 02/23/21 00:01 Last Admin: 01/24/21 01:59 Dose: 25 mg Documented by: Montelukast Sodium (Montelukast Sodium 10 Mg Tablet) 10 mg PO DAILY [facility] Stop: 02/23/21 08:59 Nitroglycerin (Nitroglycerin Sl 0.4 Mg/Tab Tab) 0.4 mg SL UD PRN PRN Reason: Chest Pain Stop: 02/23/21 00:01 Nitroglycerin (Nitroglycerin 2% Ointment 30gm Tube) 1 inch EXT Q6 [facility] Stop: 02/23/21 00:29 Last Admin: 01/24/21 06:36 Dose: 1 inch Documented by: Rosuvastatin Calcium (Rosuvastatin Calcium 20 Mg Tab) 20 mg PO QAM [facility] Stop: 02/23/21 08:59 (1) Hypertension Hypertension type: unspecified Qualified Code(s): I10 - Essential (primary) hypertension
[2021-01-24] MEDS: ASPIRIN 81 MG ECTAB PO SCH (09:07)
[2021-01-24] MEDS: ROSUVASTATIN CALCIUM 20 MG TAB PO SCH (09:07)
[2021-01-24] MEDS: MONTELUKAST SODIUM 10 MG TABLET PO SCH (09:07)
[2021-01-24] MEDS ORDERED: PANTOprazole 40 MG TAB PO STA (10:16)
--- NOTE | 2021-01-24 11:09 | Cardiology Consultation ---
Date of Consultation January 24, 2021 Assessment & Plan (1) Precordial chest pain: (2) Elevated troponin: (3) CAD (coronary artery disease): (4) Dyslipidemia: 1. Chest discomfort: His chest discomfort is very likely myocardial ischemia or injury, it is similar what he has experienced in the past and he has known coronary artery disease and has other findings as noted below. Currently he is pain-free with initiation of nitroglycerin topically and intravenous heparin. 2. Elevated troponin: His troponin elevation is relatively mild, however in the past when he has come in with chest discomfort his troponin was undetectable. This is consistent with ischemia being the cause of his symptoms. The enzymes have continued to rise although still remained quite low. 3. Coronary disease: He has known coronary artery disease and this probably represents progression, he is not on statin therapy by his choice due to side effects, although he is on aspirin. He likely has progression on that basis. We will need to do a diagnostic catheterization. I discussed this with him and he is agreeable. We will arrange that for the near future this morning. 4. Dyslipidemia: He should be on high-dose statin therapy, unfortunately he has not been able to tolerate it. Although there are other options statins are by far the best drug to prevent future recurrence. We will need to address this, currently he is on Crestor in hopes that he will tolerate that better but that was just started now. History of Present Illness Reason for Consultation: Chest discomfort Attending Physician: Tiffanie Duarte MD History of Present Illness This is a 65-year-old male with a history of coronary artery disease first bec oming symptomatic in May 2010. He had chest exertional chest discomfort at the time but ultimately presented with an acute inferolateral myocardial infarction on May 26, 2010. He had catheterization and circumflex marginal stent placement. He also had disease in other vessels but did not require intervention. He was left with a normal ejection fraction and subsequently had a stress echo in June 2012 which was negative for ischemia and he exercised for 12 minutes on the Rogelio protocol. He also had a stress echo on December 21, 2017 which was also negative for ischemia. He does have a history of dyslipidemia and has been taking statins on and off, currently he is taking very low-dose atorvastatin (10 mg every other day) and remains on aspirin 81 mg daily. He presented to the emergency room January 23, 2021 having developed an episode of chest discomfort with radiation to his arms. He has been having exertional angina for 3 to 5 days, although it was much worse the day he came into the emergency room. Evaluation in the emergency room included an electrocardiogram showing sinus rhythm at 70 bpm with LVH but no acute changes. He did however have T wave inversion in lead III which was new. Another electrocardiogram around midnight last evening is unchanged as is an electrocardiogram this morning. His troponin measurements however are abnormal, on presentation his troponin was 0.112, 6 hours later was 0.143 and then 6 hours after that was 0.147. He was initiated on intravenous heparin and he has been kept n.p.o. In the emergency room he has been free of symptoms on topical nitroglycerin and intravenous heparin. He is having a headache but that is no other complaints. He also reports that he was having some dyspnea on exertion recently along with the chest discomfort. He does not have orthopnea or PND or peripheral edema. Allergies Allergy/AdvReac Type Severity Reaction Status Date / Time atorvastatin Allergy Unknown mental Verified 10/15/20 14:48 disturabances ciprofloxacin Allergy Unknown SHORTNESS Verified 01/23/21 17:49 OF BREATH Sulfa (Sulfonamide Allergy Unknown Unknown Verified 01/24/21 01:50 Antibiotics) metronidazole AdvReac Intermediate COBNFUSION Verified 01/23/21 17:49 Home Medications Medication Instructions Recorded Confirmed Type garlic 1,000 mg capsule 2,000 mg PO DAILY 02/11/18 01/23/21 History montelukast 10 mg tablet 10 mg PO DAILY 02/11/18 01/23/21 History multivitamin 1 tab PO DAILY 02/11/18 01/23/21 History saw palmetto 160 mg capsule 160 mg PO DAILY 02/11/18 01/23/21 History cyclobenzaprine 5 mg tablet 5 mg PO TID PRN #30 tab 02/15/18 01/23/21 Rx fluticasone propionate 110 2 puff INHALATION BID PRN 09/13/18 01/23/21 History mcg/actuation HFA aerosol inhaler (Flovent HFA) atorvastatin 10 mg tablet 10 mg PO Q OTHER DAY #90 tab 03/28/20 01/23/21 Rx losartan 25 mg tablet 25 mg PO BID #180 tab 01/22/21 01/23/21 Rx aspirin 81 mg tablet,delayed 81 mg PO DAILY 01/23/21 01/23/21 History release (Aspirin Low Dose) nitroglycerin 0.4 mg sublingual 0.4 mg SUBLINGUAL UD PRN 01/23/21 01/23/21 History tablet Patient History Medical History Abdominal pain Anxiety Chest pain Chest pain Chills Corneal abrasion, left Dyslipidemia Elevated lipase Groin rash Heart palpitations Hx of coronary artery disease Hx of myocardial infarction Hypertension Palpitations Palpitations Surgical History Hx of heart artery stent Family History Father , Age 42 from an [place] Coronary heart disease Other Family history non-contributory No family history of adverse response to anesthesia No family history of bleeding disorder Social History Smoking Status: Former smoker Second Hand Exposure: No; Do You Dip or Chew Tobacco: No; Hx Alcohol Use: No Hx Substance Use: No Preferred Language: Georgian Communication Ability: Effective 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 HEENT: Unremarkable Neck: No jugular venous distention, carotid pulses are normal and equal bilaterally without bruits. Pulmonary: Clear to auscultation bilaterally. Cardiac: Regular rhythm with no murmur, gallop or rub. Abdomen: Soft, nontender with normal bowel sounds. Extremities: No edema. Distal pulses intact. Neurologic: No focal findings. Gait is steady. Skin: No rash, ecchymoses or petechiae. Results & Data ([facility]) Vital Signs (Past 12 Hours) Vital Signs Temp Pulse Pulse Resp BP BP Pulse Ox 01/24/21 07:38 36.7 C 81 18 112/77 98 01/24/21 06:10 36.3 C L 74 18 132/75 98 01/24/21 03:00 70 17 102/70 94 01/24/21 02:00 75 21 120/83 95 01/24/21 01:06 37.1 C 67 19 124/77 96 01/24/21 00:07 82 16 113/87 98 Laboratory Results Cardiac Enzymes 01/23/21 01/23/21 01/24/21 Range/Units 17:30 23:18 04:58 AST 18 (15-37) U/L Troponin I 0.112 H* 0.143 H* 0.147 H* (0-0.045) ng/ml Coagulation 01/23/21 01/23/21 01/24/21 Range/Units 17:37 23:18 05:54 PT 11.5 (9.0-12.0) Seconds APTT 55.4 H* 42.1 H (21.0-31.0) Seconds Lipids 01/24/21 Range/Units 04:58 Triglycerides 53 (0-150) mg/dl Cholesterol 133 (0-200) mg/dl HDL Cholesterol 53 mg/dl Cholesterol/HDL Ratio 3 CBC 01/23/21 01/24/21 Range/Units 17:30 04:58 WBC 5.36 7.94 (4.8-10.8) K/uL RBC 4.54 L 4.18 L (4.7-6.1) M/uL Hgb 13.9 L 13.0 L (14.0-18.0) g/dL Hct 42.3 39.2 L (42-52) % Plt Count 291 280 (130-400) K/uL Neut # (Auto) 3.32 4.95 (1.4-6.5) K/uL Lymph # (Auto) 1.42 2.09 (1.2-3.4) K/uL [place] # (Auto) 0.44 0.70 H (0.11-0.59) K/uL Eos # (Auto) 0.12 0.15 (0-0.5) K/uL Baso # (Auto) 0.04 0.03 (0-0.2) K/uL Comprehensive Metabolic Panel 01/23/21 01/24/21 Range/Units 17:30 04:58 Sodium 141 140 (136-145) mmol/L Potassium 4.2 3.9 (3.5-5.1) mmol/L Chloride 109 H 109 H (98-107) mmol/L Carbon Dioxide 27 27 (21-32) mmol/L BUN 14 16 (7-18) mg/dl Creatinine 1.16 1.19 (0.6-1.4) mg/dl Glucose 112 H 130 H (70-99) mg/dl Calcium 8.8 8.4 L (8.5-10.1) mg/dl AST 18 (15-37) U/L ALT 29 (12-78) Alkaline Phosphatase 57 (45-117) U/L Total Protein 6.9 (6.4-8.2) gm/dl Albumin 3.5 (3.4-5.0) gm/dl Intake and Output 01/23/21 01/24/21 01/24/21 22:59 06:59 14:59 Intake Total 178.667 / 178.667 Balance 178.667 / 178.667 Intake: IV 178.667 / 178.667 Heparin Sodium/Dextrose 25,000 178.667 / 178.667 units In 500 ml @ 800 UNITS/HR 16 mls/hr IV .Q24H [place] Rx#: [id number] Other: Other Intake Source NPO # Unmeasured Voids 1 Weight 68.3 kg 71.3 kg Weight Measurement Method Built in [facility] Built in [facility] PG Care Time/CCT Total # of Minutes Spent Total Time Spent with Patient: Total time spent is greater than 50% in coordination of care (as documented) at patient's floor/unit and/or counseling patient: Coding Level of Care Code 97900 Inpt Consult Level 5 Diagnoses Precordial chest pain R07.2 CAD (coronary artery disease) I25.110 Coronary Disease-Associated Artery/Lesion type: [place] artery [place] vs. transplanted heart: [place] heart Associated angina: with unstable angina Dyslipidemia E78.5 Elevated troponin R77.8 (1) CAD (coronary artery disease) Coronary Disease-Associated Artery/Lesion type: [place] artery [place] vs. transplanted heart: [place] heart Associated angina: with unstable angina Qualified Code(s): I25.110 - Atherosclerotic heart disease of [place] coronary ar elian with unstable angina pectoris
[2021-01-24 12:43] LABS: Partial Thromboplastin Ratio 3.1
[2021-01-24 12:49] LABS: Partial Thromboplastin Time 81.5 Seconds (21.0-31.0)
[2021-01-24] MEDS ORDERED: niCARdipine HCL INJ 2.5 MG/ML 10 ML AMP ONE (12:52)
[2021-01-24] MEDS ORDERED: fentaNYL citrate 100 MCG/2 ML VIAL ONE (12:52)
[2021-01-24] MEDS ORDERED: MIDAZOLAM HCL 1 MG/ML 2ML VIAL ONE (12:52)
[2021-01-24] MEDS ORDERED: NITROGLYCERIN/D5W 100MCG/ML 20ML SYR ONE (12:52)
[2021-01-24] MEDS ORDERED: HEPARIN (PORCINE) 1000 UNIT/ML 10 ML (CATH LAB USE ONLY) ONE (12:52)
--- NOTE | 2021-01-24 12:58 | Pre Anesthesia Assessment ---
Date of Service January 24, 2021 Pre Sedation Assessment Vital Signs Temp Pulse Pulse Pulse Resp BP BP 01/24/21 11:14 98.6 F 66 18 130/74 01/24/21 07:38 98.1 F 81 18 112/77 01/24/21 06:10 97.3 F L 74 18 132/75 01/24/21 03:00 70 17 102/70 01/24/21 02:00 75 21 120/83 01/24/21 01:06 98.8 F 67 19 124/77 01/24/21 00:07 82 16 113/87 01/23/21 22:00 76 16 115/80 01/23/21 20:00 73 16 157/92 H 01/23/21 19:15 66 17 01/23/21 18:43 71 16 138/97 01/23/21 17:23 98.2 F 72 73 16 142/90 H 129/88 Pulse Ox 01/24/21 11:14 96 01/24/21 07:38 98 01/24/21 06:10 98 01/24/21 03:00 94 01/24/21 02:00 95 01/24/21 01:06 96 01/24/21 00:07 98 01/23/21 22:00 96 01/23/21 20:00 97 01/23/21 19:15 99 01/23/21 18:43 99 01/23/21 17:23 98 Cardiovascular RRR, no murmur, no edema Respiratory normal respiratory effort, lungs clear to auscultation Pre-Sedation Airway Assessment Smoking Status: Former smoker Short, Thick Neck: No Thyromental Distance: > or= 3.5 Finger Breadths Oral Cavity: + WNL Mallampati Class: IV ASA: ASA3 Procedure Planning Contraindications for Sedation: none Current Medications Reviewed: Yes Notes The planned sedation has been discussed with the patient. Informed Consent was obtained. I have identified the patient, determined the appropriateness of sedation and have assessed the patient immediately prior to the procedure. All medicine(s) and interventions are by my order.
[2021-01-24] MEDS ORDERED: CLOPIDOGREL BISULFATE 300 MG TAB ONE (14:09)
--- NOTE | 2021-01-24 14:51 | Post Anesthesia Assessment ---
Date of Service January 24, 2021 Post Sedation Assessment Vital Signs Temp Pulse Pulse Pulse Resp BP BP 01/24/21 14:20 63 18 159/89 H 01/24/21 11:14 98.6 F 66 18 130/74 01/24/21 07:38 98.1 F 81 18 112/77 01/24/21 06:10 97.3 F L 74 18 132/75 01/24/21 03:00 70 17 102/70 01/24/21 02:00 75 21 120/83 01/24/21 01:06 98.8 F 67 19 124/77 01/24/21 00:07 82 16 113/87 01/23/21 22:00 76 16 115/80 01/23/21 20:00 73 16 157/92 H 01/23/21 19:15 66 17 01/23/21 18:43 71 16 138/97 01/23/21 17:23 98.2 F 72 73 16 142/90 H 129/88 Pulse Ox 01/24/21 14:20 98 01/24/21 11:14 96 01/24/21 07:38 98 01/24/21 06:10 98 01/24/21 03:00 94 01/24/21 02:00 95 01/24/21 01:06 96 01/24/21 00:07 98 01/23/21 22:00 96 01/23/21 20:00 97 01/23/21 19:15 99 01/23/21 18:43 99 01/23/21 17:23 98 Recovery Score Activity: Moves 4 extremities Respiration: Deep Breath/Cough Circulation: +/-20% PreAnes Value Consciousness: Fully Awake Oxygen Saturation: > 92% On Room Air Post Anesthesia Score: 10 Discharge Sedation Level of Care: Fast Track Phase II Post Sedation Plan On clinical assessment, the patient appears to have tolerated the sedation without complications. Patient is recovering as anticipated. Patient will continue to be monitored by nursing and may be discharged when sedation discharge criteria are met per below protocol. Upon Completions of procedure up to 15 minutes continue every 5 minute vital signs and the P.A.R. score; then discharge to a Phase I or Fast Track to Phase II per the following guidelines: * Discharge Patient to appropriate Phase II area if PAR is 8 or greater or return to pre- procedure baseline. The post - procedure orders will be as directed. * If PAR score is less than 8 or not return to pre-procedure baseline then patient will follow Phase I monitoring till PAR is reached for Phase II. The Phase I may be done in procedure room or may call to secure a Phase I area. * If naloxone or flumazenil are used for reversal, hold in Phase I for continued monitoring from when last reversal dose was given for a minimum of 60 minutes or longer pending the nurse and/or physician discretion of patient condition before discharge to Phase II. Please call the Sedation Physician to re-evaluate and complete post-note for discharge to Phase II area. Do NOT discharge from procedure sedation or Phase 1 until post- sedation evaluation note is complete by procedure /sedation MD Sedation Discharge Instructions to be given to the patient at discharge to home.
--- NOTE | 2021-01-24 14:53 | Post Operative Brief Note ---
Cardiology Brief Post Op Date of Surgery January 24, 2021 Pre & Post Diagnosis CAD Procedure coronary angiography PCI to RCA Industrial Order Clerk Miguelito Weber MD Field Agent Anil Estimated Blood Loss 15 Findings See Below 60% mid RCA, 98% acute distal RCA 70% mid LAD 60% ramus Mild to moderate ISR obtuse marginal stent Successful PCI of RCA (3.5 x 22 Mark) to mid RCA, (3.5 x 15 mm [place]) to distal RCA. Drains Other (none) Anesthesia Type RN Sedation Complications none Disposition Accompanied Patient To Recovery: No Disposition: PCU Overlapping Procedure I was present for: the critical portions of procedure. I was immediately available: during the entire case. Back up surgeon: was not required during procedure.
[2021-01-24] MEDS ORDERED: SODIUM CHLORIDE 0.9% 1000ML 1,000 ML IV SCH (15:00)
--- NOTE | 2021-01-24 22:15 | Cardiac Catheterization ---
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 Cardiac Status Clinical evaluation leading to the procedure CAD Presenation: Non STEMI Anginal Classification: CCS IV Heart Failure: No Cardiogenic Shock within 24 Hours: No Cardiac Arrest within 24 Hours: No Imaging Studies Past 6 Months: Yes Stress Studies Past 6 Months: No Diagnostic Physicians Name: Miguelito Weber MD Status: Elective Closure Device Percutaneous Entry Location: Radial Closure Device: Radial Band Recommendations: PCI without planned CABG PCI Indication: PCI for high risk Non-COSTA Lesion Segment Name: distal RCA Culprit Artery: Yes Stenosis Prior to Rx (%): 98 Chronic Total Occlusion: No IVUS: No FFR: No Pre-Procedure DONNY Flow: 2 Previously Treated Lesion: No Lesion Complexity: Non-High/Non-C Lesion Length (mm): 12 Thrombus Present: Yes Bifurcation Lesion: No Guidewire Across Lesion: Stenosis Post-Procedure (%): 0 Post-Procedure DONNY Flow: 3 Devices(s) Deployed: Yes Yes Intraprocedure Events Significant Disection: No Perforation: No Cardiac Cath Procedure Full Procedure Date January 24, 2021 Pre-Procedure Diagnosis Pre-Procedure Diagnosis: Non STEMI AUC Score AUC Score: 8 Post-Procedure Diagnosis Post-Procedure Diagnosis: Severe CAD, Successful PCI and Normal Intracardiac Pressures Procedure(s) Performed Procedure(s) Performed: Coronary Angiography, Left Heart Cath and Drug Eluting Stent Oss Architect Miguelito Weber MD Nuclear Fuel Enrichment Technician(s) Anil Estimated Blood Loss Estimated Blood Loss: 20 Medication(s) Medication(s): Clopidogrel, Fentanyl, Heparin, Lidocaine 1%, Nicardipine, Nitroglycerin and Versed Summary of Findings Indication: NSTEMI. History of [place] with stenting to obtuse marginal 05/2010 Access: 6 Fr right radial artery Catheters: [place], JR4 guide Findings: LM -large caliber, no significant disease LAD -medium caliber, 50% lateproximal stenosis just before takeoff of D1, 70% focal mid stenosis. Distal vessel without significant disease and wraps around apex. Small to medium D1 with diffuse disease up to 70%. Ramus60% mid segment disease at bifurcation Circumflex -small caliber, OM1 stent patent with mild in-stent restenosis. RCA -dominant, large caliber, 60% angulated latemid stenosis, 98% acute distal stenosis with DONNY II flow in remainder of vessel. 60% mid R PDA, 60% mid large RPL. LVEDP -17 -- PCI -- Antithrombotic therapy: Heparin, clopidogrel Procedure: RCA cannulated with JR4 guide Mud Engineer 50 wire passed across lesion into distal RPL Distal RCA lesion predilated with 3.0 compliant balloon With the aid of a telescope support catheter dilated lesion stented with 3.5 x 15 mm [place] drug-eluting stent Stent post-dilated with 3.5 noncompliant balloon Mid RCA lesion gently dilated with 3.5 balloon Mid RCA stented with 3.5 x 22 mm [place] drug-eluting stent Stent postdilated with 4.0 balloon IC vasodilators administered for spasm Post procedure DONNY 3 flow, stents well expanded with minimal residual stenosis and no apparent cardiac complications. Arterial Closure: TR band Summary: 1. Severe multivessel coronary artery disease -Acute 98% distal RCA stenosis. 60% mid RCA. RPDA, RPL with 60% disease. 50% lateproximal LAD, 70% mid LAD. Small to medium D1 with diffuse 70% disease 60% mid ramus Small OM with patent stent and mild in-stent restenosis. 2. Normal intracardiac filling pressure 3. Successful PCI of distal RCA with 3.5 x 15 mm [place] drug-eluting stent. 4. Successful PCI of mid RCA with 3.5 x 22 mm [place] drug-eluting stent (postdilated with 4.0 NC) Recommendations: To PCU for continued monitoring Loaded with clopidogrel 600 mg in Volleyball Assembler Continue dual-antiplatelet therapy for at least 1 year Consult cardiac Rehab Maximize antianginal therapy and consider staged PCI of mid LAD as an outpatient. Hemodynamics Rest Ao:: 138/59/99 Final Ao: 148/78/103 LV: 123/17 Recommendations Recommendations: PCI without planned CABG Specimens Specimens: None Radiation Exposure (mGy) 1953 Contrast (mls) 100 Drains Drains: none Anesthesia moderate [id number] Procedural Complication(s) None Disposition PCU I attest to the content of the Intraoperative Record and any orders documented therein. Any exceptions are noted below. Babil GamesG Card Cath Procedure Codes Cardiac Catheterization Procedure 1: Cardiovascular Cath Procedures: 46313 Coronaries and LHC (+/-LV) Moderate Sedation Procedure 1: Sedation/Anesthesia: 72053 Mod Sedation by the same physician;Init15 Min Child Age 5 & Up Procedure 2: Sedation/Anesthesia: 79242 Mod Sedation by the same physician; Ea [id number] Minutes Stenting Procedure 1: Cardiovascular Stent Procedures: 35029 [facility] transcatheter placement of intracoronary stent(s), with ang PG Care Time/CCT Total # of Minutes Spent Total Time Spent with Patient: Total time spent is greater than 50% in coordination of care (as documented) at patient's floor/unit and/or counseling patient:
--- NOTE | 2021-01-24 22:25 | Electrocardiogram Report ---
Test Reason : Blood Pressure : / mmHG Vent. Rate : 071 BPM Atrial Rate : 071 BPM P-R Int : 154 ms QRS Dur : 084 ms QT Int : 374 ms P-R-T Axes : 007 -32 -05 degrees QTc Int : 406 ms Normal sinus rhythm Left axis deviation Minimal voltage criteria for LVH, may be normal variant Abnormal ECG When compared with ECG of 28-JUL-2020 04:36, T wave inversion now evident in Inferior leads Confirmed by Fabiano Alvarado ([id number]) on 01/24/2021 10:24:50 PM Referred By: REFERRED SELF Confirmed By:Fabiano Alvarado
--- NOTE | 2021-01-24 22:36 | Electrocardiogram Report ---
Test Reason : Blood Pressure : / mmHG Vent. Rate : 068 BPM Atrial Rate : 068 BPM P-R Int : 142 ms QRS Dur : 090 ms QT Int : 396 ms P-R-T Axes : -04 -34 005 degrees QTc Int : 421 ms Normal sinus rhythm Left axis deviation Minimal voltage criteria for LVH, may be normal variant Abnormal ECG When compared with ECG of 23-JAN-2021 17:27, (unconfirmed) No significant change was found Confirmed by Fabiano Alvarado ([id number]) on 01/24/2021 10:36:02 PM Referred By: REFERRED SELF Confirmed By:Fabiano Alvarado
--- NOTE | 2021-01-24 22:37 | Electrocardiogram Report ---
Test Reason : Blood Pressure : / mmHG Vent. Rate : 075 BPM Atrial Rate : 075 BPM P-R Int : 156 ms QRS Dur : 088 ms QT Int : 386 ms P-R-T Axes : 037 -36 -01 degrees QTc Int : 431 ms Normal sinus rhythm Left axis deviation Moderate voltage criteria for LVH, may be normal variant Abnormal ECG When compared with ECG of 24-JAN-2021 00:35, (unconfirmed) No significant change was found Confirmed by Fabiano Alvarado ([id number]) on 01/24/2021 10:37:38 PM Referred By: REFERRED SELF Confirmed By:Fabiano Alvarado
[2021-01-25 05:45] LABS: Basophils # (auto) 0.02 K/uL (0-0.2); Basophils % (auto) 0.3 %; Eosinophils # (auto) 0.15 K/uL (0-0.5); Hematocrit (blood only) 42.5 % (42-52); Hemoglobin 13.9 g/dL (14.0-18.0); Immature Granulocytes # (auto) 0.01 K/uL (0.00-0.02); Immature Granulocytes % (auto) 0.1 %; Lymphocytes # (auto) 1.15 K/uL (1.2-3.4); Lymphocytes % (auto) 15.3 %; Mean Corpuscular Hemoglobin 30.6 pg (25-34); Mean Corpuscular Hgb Conc 32.7 g/dL (32-36); Mean Corpuscular Volume 93.6 fL (80-100); Mean Platelet Volume 10.1 fL (7.4-10.4); Monocytes # (auto) 0.73 K/uL (0.11-0.59); Monocytes % (auto) 9.7 %; Neutrophils # (auto) 5.44 K/uL (1.4-6.5); Neutrophils % (auto) 72.6 %; Platelet Count 283 K/uL (130-400); RDW Coefficient of Variation 12.5 % (11.5-14.5); Red Blood Count 4.54 M/uL (4.7-6.1)
[2021-01-25] MEDS: LACTATED RINGER'S 1,000 ML IV SCH (05:46)
[2021-01-25 05:47] LABS: INR 1.2 (0.9-1.1); Partial Thromboplastin Ratio 1.1; Partial Thromboplastin Time 29.8 Seconds (21.0-31.0); Prothrombin Time 11.7 Seconds (9.0-12.0)
[2021-01-25 05:56] LABS: BUN Creatinine Ratio 15.6 (10-20); Calcium 8.8 mg/dl (8.5-10.1); Est GFR (African American) 74.1 ml/min; Magnesium 2.3 mg/dl (1.8-2.4); Potassium 3.9 mmol/L (3.5-5.1)
[2021-01-25] MEDS: ROSUVASTATIN CALCIUM 20 MG TAB PO SCH (08:54)
[2021-01-25] MEDS: ASPIRIN 81 MG ECTAB PO SCH (08:54)
[2021-01-25] MEDS: MONTELUKAST SODIUM 10 MG TABLET PO SCH (08:54)
[2021-01-25] MEDS ORDERED: PANTOprazole 40 MG TAB PO SCH (09:00)
[2021-01-25] MEDS ORDERED: RAPID SEQUENCE INDUCTION BAG ONE (09:02)
--- NOTE | 2021-01-25 11:11 | Cardiology Progress Note ---
Date of Service January 25, 2021 Assessment & Plan (1) Acute coronary syndrome: (2) CAD (coronary artery disease): (3) Dyslipidemia: (4) Hypertension: (5) S/P coronary artery stent placement: Plan: ASSESSMENT/PLAN: 1. Acute coronary syndrome: No further angina following PCI of RCA. Recommend cardiac rehab. Anti-platelet therapy as outlined. Beta-elsie, high-intensity statin therapy, and can continue home ARB. 2. CAD s/p PCI: Had previous OM stent and underwent RCA PCI x2 for acute distal RCA stenosis with DONNY 2 flow. No further angina. Recommend aspirin 81 mg daily indefinitely, discussed with him. Recommend Plavix 75 mg daily for at least 1 year, discussed with him. Given residual CAD including mid LAD 70%, recommend beta-elsie. Given history of noncompliance according to Dr. Juan's records, recommend metoprolol succinate 50 mg once daily which may improve compliance verses b.i.d. dosing. Continue ARB. Recommend high-intensity statin therapy. He was on atorvastatin at home but would increase dose to 40 mg daily. He is tolerating Crestor here and could consider 20 mg once daily in place of atorvastatin if he prefers. Cardiac rehab. Nitroglycerin p.r.n. angina. Close follow-up with his primary alto singer. 3. Hypertension: Blood pressure reasonably controlled this morning. Plan as above. 4. Dyslipidemia: High-intensity statin therapy as outlined. 5. Disposition: If he tolerates ambulation in the hallway, can be discharged home from a Cardiology perspective. Recommend follow-up with his primary alto singer, Dr. Juan, in approximately 1 week. Patient care discussed and communicated with Dr. Duarte of the primary hospitalist service. 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 For exercise, he can walk. Recommended cardiac rehab for further guidance. Given that he has severe CAD, would recommend that he first be seen in the cardiology office before more strenuous activities, including sexual activity, to ensure that he is tolerating activity without angina. He was also asked to discuss his upcoming knee surgery with Dr. Juan, however given that he now requires dual anti-platelet therapy, his February 2021 elective surgery should be postponed for now. These were all discussed with him. Admission and Anticipated Discharge Date Admission Date: January 23, 2021 Subjective He has not had any further angina. He denies shortness of breath. He had not yet ambulated in the hallway. He denies bleeding, palpitations, syncope. He had several questions. He inquired if troponin would be trended until 0. We discussed that that is not necessary. He also asked if he could receive a COV ID-19 test prior to discharge to ensure that he did not contract COVID-19 during this hospitalization. He was asked to discuss this with primary hospitalist. He inquired about resuming drum playing, sexual activity, exercise, and upcoming knee surgery. Review of systems: As above. Physical Exam Physical Exam: Gen.: No acute distress. Alert and oriented. HEENT: Anicteric sclera. Neck: No JVD. Cardiac: Regular. Normal S1-S2. No murmurs, rubs, or gallops. Pulmonary: Clear to auscultation bilaterally without wheezes, rales, or rhonchi. Abdomen: Soft, nontender, nondistended, with normoactive bowel sounds. No bruits noted. Extremities: 2+ radial pulses bilaterally. Right radial cath site is without hematoma. 2+ posterior tibialis pulses bilaterally. No edema or cyanosis. Psychiatric: Affect appears appropriate. Results & Data ([facility]) Vital Signs (Past 12 Hours) Vital Signs Temp Pulse Pulse Resp BP BP Pulse Ox 01/25/21 08:00 37.2 C 74 18 125/88 98 01/25/21 04:30 85 18 96 01/25/21 04:20 81 17 97 01/25/21 04:10 76 15 97 01/25/21 04:00 95 H 15 136/91 97 01/25/21 03:50 71 16 97 01/25/21 03:40 68 13 96 01/25/21 03:30 84 17 96 01/25/21 03:20 94 H 23 98 01/25/21 03:10 90 23 96 01/25/21 03:00 74 7 L 96 01/25/21 02:50 80 12 98 01/25/21 02:40 71 13 96 01/25/21 02:30 68 16 96 01/25/21 02:20 67 15 96 01/25/21 02:10 68 14 97 01/25/21 02:00 72 17 95 01/25/21 01:50 68 15 96 01/25/21 01:40 83 23 95 01/25/21 01:30 78 19 97 01/25/21 01:20 75 24 97 01/25/21 01:11 75 01/25/21 01:10 76 17 99 01/25/21 01:00 66 16 96 01/25/21 00:50 67 17 97 01/25/21 00:40 79 14 97 01/25/21 00:30 78 19 97 01/25/21 00:20 77 19 96 01/25/21 00:10 80 24 98 01/25/21 00:00 79 23 155/93 H 97 Laboratory Results Laboratory Results - last 24 hr 01/24/21 01/24/21 01/25/21 12:13 13:48 04:50 WBC 7.50 RBC 4.54 L Hgb 13.9 L Hct 42.5 MCV 93.6 MCH 30.6 MCHC 32.7 RDW Std Deviation 43.0 RDW Coeff of Vielka 12.5 Plt Count 283 MPV 10.1 Immature Gran % (Auto) 0.1 Neut % (Auto) 72.6 Lymph % (Auto) 15.3 Barber % (Auto) 9.7 Eos % (Auto) 2.0 Baso % (Auto) 0.3 Neut # (Auto) 5.44 Lymph # (Auto) 1.15 L Barber # (Auto) 0.73 H Eos # (Auto) 0.15 Baso # (Auto) 0.02 Immature Gran # (Auto) 0.01 PT INR APTT 81.5 H* PTT Ratio 3.1 Activ Coag Time Kaolin 261 H Sodium Potassium Chloride Carbon Dioxide Anion Gap BUN Creatinine Est Cr Clr Drug Dosing Est GFR ( Amer) Est GFR (Non-Af Amer) BUN/Creatinine Ratio Glucose Calcium Magnesium 01/25/21 01/25/21 04:50 04:50 WBC RBC Hgb Hct MCV MCH MCHC RDW Std Deviation RDW Coeff of Vielka Plt Count MPV Immature Gran % (Auto) Neut % (Auto) Lymph % (Auto) Barber % (Auto) Eos % (Auto) Baso % (Auto) Neut # (Auto) Lymph # (Auto) Barber # (Auto) Eos # (Auto) Baso # (Auto) Immature Gran # (Auto) PT 11.7 INR 1.2 H APTT 29.8 PTT Ratio 1.1 Activ Coag Time Kaolin Sodium 139 Potassium 3.9 Chloride 107 Carbon Dioxide 24 Anion Gap 8.0 BUN 19 H Creatinine 1.20 Est Cr Clr Drug Dosing 61.0 Est GFR ( Amer) 74.1 Est GFR (Non-Af Amer) 64.0 BUN/Creatinine Ratio 15.6 Glucose 87 Calcium 8.8 Magnesium 2.3 Diagnostic Findings Telemetry personally reviewed: Sinus rhythm. No arrhythmia. Cardiac Cath 01/24/21: 1. Severe multivessel coronary artery disease -Acute 98% distal RCA stenosis. 60% mid RCA. RPDA, RPL with 60% disease. 50% lateproximal LAD, 70% mid LAD. Small to medium D1 with diffuse 70% disease 60% mid ramus Small OM with patent stent and mild in-stent restenosis. 2. Normal intracardiac filling pressure 3. Successful PCI of distal RCA with 3.5 x 15 mm Mark drug-eluting stent. 4. Successful PCI of mid RCA with 3.5 x 22 mm Mark drug-eluting stent (postdilated with 4.0 NC) Medications Administered Current Inpatient Medications Acetaminophen (Acetaminophen 325 Mg Tab) 650 mg PO Q4H PRN PRN Reason: Pain Stop: 02/23/21 01:42 Last Admin: 01/24/21 11:07 Dose: 650 mg Documented by: Aspirin (Aspirin 81 Mg Ectab) 81 mg PO DAILY [facility] Stop: 02/23/21 08:59 Last Admin: 01/25/21 08:54 Dose: 81 mg Documented by: Clopidogrel Bisulfate (Clopidogrel Bisulfate 75 Mg Tab) 75 mg PO QAM [facility] Stop: 02/24/21 11:59 Fluticasone Furoate (Fluticasone Furoate 100mcg 14 Puffs/Inhaler) 1 puffs INH DAILY PRN PRN Reason: Shortness Of Breath Or Wheezing Stop: 02/23/21 01:23 Heparin Sodium/Dextrose (Heparin Sodium/Dextrose) 25,000 units in 500 mls @ 0 mls/hr IV .Q0M [facility]; Protocol Stop: 02/22/21 18:59 Last Titration: 01/24/21 12:32 Dose: 0 units/hr, 0 mls/hr Documented by: Lactated Ringer's (Lr) 1,000 mls @ 80 mls/hr IV .[id number] [facility] Stop: 02/23/21 00:59 Last Admin: 01/25/21 05:46 Dose: 80 mls/hr Documented by: Losartan Potassium (Losartan Potassium 25 Mg Tab) 25 mg PO BID [facility] Stop: 02/23/21 00:01 Last Admin: 01/24/21 01:59 Dose: 25 mg Documented by: Metoprolol Succinate (Metoprolol Succ 50mg Ext Rel Tab) 50 mg PO QAM [facility] Stop: 02/24/21 11:14 Montelukast Sodium (Montelukast Sodium 10 Mg Tablet) 10 mg PO DAILY [facility] Stop: 02/23/21 08:59 Last Admin: 01/25/21 08:54 Dose: 10 mg Documented by: Nitroglycerin (Nitroglycerin Sl 0.4 Mg/Tab Tab) 0.4 mg SL UD PRN PRN Reason: Chest Pain Stop: 02/23/21 00:01 Pantoprazole Sodium (Pantoprazole 40 Mg Tab) [facility] Stop: 02/24/21 08:59 Last Admin: 01/25/21 08:54 Dose: 40 mg Documented by: Rosuvastatin Calcium (Rosuvastatin Calcium 20 Mg Tab) 20 mg PO QAM [facility] Stop: 02/23/21 08:59 Last Admin: 01/25/21 08:54 Dose: 20 mg Documented by: PG Care Time/CCT Total # of Minutes Spent Total Time Spent with Patient: Total time spent is greater than 50% in coordination of care (as documented) at patient's floor/unit and/or counseling patient: Coding Level of Care Code 78381 Subseq Hosp Care Lvl 3 Diagnoses Acute coronary syndrome I24.9 CAD (coronary artery disease) I25.110 Coronary Disease-Associated Artery/Lesion type: [place] artery [place] vs. transplanted heart: [place] heart Associated angina: with unstable angina Dyslipidemia E78.5 Hypertension I10 Hypertension type: unspecified S/P coronary artery stent placement Z95.5 (1) CAD (coronary artery disease) Coronary Disease-Associated Artery/Lesion type: [place] artery [place] vs. transplanted heart: [place] heart Associated angina: with unstable angina Qualified Code(s): I25.110 - Atherosclerotic heart disease of [place] coronary artery with unstable angina pectoris (2) Hypertension Hypertension type: unspecified Qualified Code(s): I10 - Essential (primary) hypertension
[2021-01-25] MEDS ORDERED: METOPROLOL SUCC 50MG EXT REL TAB PO SCH (11:15)
[2021-01-25] MEDS ORDERED: CLOPIDOGREL BISULFATE 75 MG TAB PO SCH (12:00)
--- NOTE | 2021-01-25 13:30 | Discharge Summary ---
Date of Service January 25, 2021 Admission HPI Per Admitting Provider 65 YOM with past medical history of: CAD with stent (2010- LT cx bare metal), KS (2010 anterolateral), HTN, HLD. Patient follows with Dr Juan for cardiology. Patient comes in today for increase in chest pressure in the left upper side of his chest that radiates down both of his arms. This has also been associated with decrease in activity as well as dyspnea and one episode of dizziness this morning. This has been occuring over the past 2 weeks, but has gotten worse over the past 2 days. This pain has been occurring yesterday and today when he has gotten up to go to the bathroom and up and down steps. Today it occurred with both activity and at rest. He took one dose NTG today for his pain. He has not taken a NTG since his admission in 2010. Patient also feels this is the same discomfort that he was having in 2010 with his KS. He did see Dr. Juan yesterday and did have a stress test ordered as outpatient at that time. Patient had a normal stress ECHO in April 2020. In the EMD the patient had ECG done that shows no dynamic ECG changes but with T wave flattening and inversion in inferior leads, he also had Troponin I drawn that was elevated 0.112. In the EMD he received 4 81mg ASA and nitropaste. Patient will be admitted for monitoring of his troponin, ECG and chest pain. 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 Will consult Cardiology and keep patient NPO after midnight. Patient COVID test on admission is: NEGATIVE Admission Exam Per Admitting Provider General: awake, alert, no apparent distress Head: Normocephalic, atraumatic ENT: PERRL, EOMI, no pharyngeal exudate, mucous membranes moist Neuro: AAO x 3, speech clear and appropriate, strength intact bilaterally 5/5, sensation intact and equal all extremities and dermatomes, no pronator drift Chest: equal rise and fall of the chest, no accessory muscle use, no heaves or thrills, Clear to auscultation, on room air Cardiac: Regular rate and rhythm, telemetry reviewed- NSR without ectopy, skin warm dry, cap refill <3 seconds, peripheral pulses +2 no JVD, no murmur, no edema GI: NABS x 4 quadrants, soft, nontender to palpation, no rebound, guarding or tenderness : Spontaneously voiding, no pain, no CVA tenderness, Extremities: Normal inspection, no peripheral edema or erythema, calfs nontender to palpation Psych: Normal mood and affect Skin: no rash or erythema Principal Diagnosis acute coronary syndrome Discharge Exam GENERAL: No acute distress. Well developed and well nourished. Vital signs reviewed as above. EYES: EOMI. Anicteric sclerae. HENT: Moist mucous membranes. RESPIRATORY: Clear to auscultation bilaterally. No wheezing, rales, or rhonchi. CARDIOVASCULAR: Regular rate and rhythm. No murmurs. ABDOMEN: Soft, non-tender and non-distended. No palpable masses. Normal bowel sounds. EXTREMITIES: No edema. Non-tender. SKIN: Warm, dry. NEUROLOGIC: A/O x3. No focal neurological deficits. PSYCHIATRIC: Cooperative. Appropriate mood and affect. Discharge Data Allergies Allergy/AdvReac Type Severity Reaction Status Date / Time atorvastatin Allergy Unknown mental Verified 10/15/20 14:48 disturabances ciprofloxacin Allergy Unknown SHORTNESS Verified 01/23/21 17:49 OF BREATH Sulfa (Sulfonamide Allergy Unknown Unknown Verified 01/24/21 01:50 Antibiotics) metronidazole AdvReac Intermediate COBNFUSION Verified 01/23/21 17:49 Consultations 01/23/21 18:33 ED Decision to Admit Stat 01/23/21 21:22 Consult Cardiology Routine 01/24/21 14:49 Consult Cardiac Rehabilitation Routine Procedures Performed Operation Date: 01/24/21 12:00 Actual Procedures s Cineradiography w/Routine Exam - Jax Weber MD p Cath, Left with Cors and Vent - Jax Weber MD Ordered Studies 01/24/21 12:40 CL Cath Imgs for PACS use only Routine Hospital Course (1) Unstable angina: Clarence is a 65 yo male with PMHx of CAD w/ stent (2010), KS (2010), HTN, and HLD. Admitted for CP evaluation and diagnosed with ACS/NSTEMI. Acute Coronary Syndrome - Risk factors for ACS include previous smoker, HTN, HLD, previous KS w/ stents. - Troponin I was trended. 0.112 --> 0.143 --> 0.147 - Cardiology consulted. - Diagnostic cath performed 01/24: severe CAD, successful PCI. - Specifically -- severe multivessel CAD - acute 98% distal RCA stenosis, 60% mid RCA. RPDA RPL with 60% disease. 50& late-proximal LAD, 70% mid LAD. Small to medium D1 with diffuse 70% disease. 60% mid ramus. Small OM wiht patent stent and mild in-stent restenosis. - Successful PCI of distal RCA with 3.5 x 15 mm [place] NATIVIDAD. Successful PCI of mid RCA with 3.5 x 22 mm Mark NATIVIDAD. - Per cardiology, recommend following medication management: ASA 81mg po daily indefinitely, Plavix 75mg po daily x1 year, metoprolol succinate 50mg po daily, losartan, rosuvastatin 20mg po daily, nitroglycerin prn - Patient to f/u with outpatient furnace checker, Dr. Juan, in approximately 1 week of discharge - Per cardiology, would consider staged PCI of mid LAD as outpatient - Recommend continuing with cardiac rehab on discharge Allergic rhinitis - Continue montelukast and fluticasone Hypertension - Continue ARB as noted above Dyslipidemia - Lipid profile acceptable: triglycerides 53, cholesterol 133, LDL 69, HDL 53 - Noted that he previously did not tolerate atorvastatin. He was started on rosuvastatin during hospitalization that he seems to be tolerating. Would recommend continuing with rosuvastatin 20mg po daily as noted above. (2) Elevated troponin I level: (3) Allergic rhinitis: (4) Hypertension: (5) Dyslipidemia: (6) Hx of coronary artery disease: Total Time Total Time Spent Total Time Spent (In Minutes): See attending attestation Discharge Plan Discharge Items Patient Disposition: Home - Self-Care Reason For Visit: CHEST PAIN Discharge Diagnosis: acute coronary syndrome Condition on Discharge: Fair Activity: Per Instructions section Non-emergency contact: Primary Care Provider and Procurement Coordinator Call non-emergency contact if: you have any medication questions Follow-up/Referrals: Alvino Juan Jr, MD, FACC [Physician] - Ned Singh DO [Primary Care Provider] - Diet: Heart Healthy Addtl Attending Provider Instructions: Clarence, It was our pleasure to care for you at [facility] from 01/23/21 to 01/25/21. You initially presented with chest pain, reminiscent of your prior cardiac history/heart attack. You were found to have another "heart attack" which caused partial blockage of some of the arteries in your heart. You underwent intervention and had 2 stents placed. Below you will find activity recommendation following the heart procedure that you underwent. Additionally, there are several medication changes that are being made. In summary: 1. Continue Aspirin 81mg by mouth once a day. You should take this indefinitely. 2. You have been started on Plavix 75mg by mouth once a day. You should take this for at least 1 year but your furnace checker, Dr. Juan, will follow up on this. 3. You have been started on Metoprolol succinate 50mg by mouth once a day. 4. Continue losartan 25mg by mouth twice a day. 5. You have been started on rosuvastatin 20mg by mouth once a day. 6. Continue nitroglycerin to be used as needed for chest pain. If you need to use this medication, you should contact your primary care doctor, furnace checker, or go to the emergency department for further evaluation. It is recommended that you participate in cardiac rehab. This should be discussed with your PCP and furnace checker. Please follow up with your primary care physician within 1 week of discharge. You should also follow up with your furnace checker, Dr. Juan, in about 1 week. Call your PCP or furnace checker with any questions or concerns. Return to the ER for any worsening chest pain, shortness of breath, or other concerning symptoms. ACTIVITY RECOMMENDATIONS: Excess manipulation of the wrist should be avoided for the next 24-48 hours. * No lifting over 2 pounds (approximately a 1/2 gallon of milk) with the utilized arm for 24 hours. * No strenuous activity such as bowling or tennis for 3 days. * Keep the site of the procedure covered with a bandage for 24 hours. *You may shower the day after the procedure. Do not take a tub bath or submerge the puncture site in water for the next 3 days. *Do not operate any motorized equipment for 3 days. SPECIAL CARE INSTRUCTIONS: The site may be slightly bruised and sore following your procedure. Should any of the following occur, contact the Dr. who performed your procedure. 1. Redness/inflammation, swelling, chills, or fever, or colored drainage at procedure site within 3-7 days after your procedure. 2. Coldness, discoloration, ongoing numbness, severe pain, or swelling. Expect mild tingling of hand and tenderness at the puncture site for up to three days. If this persists beyond three days, or other symptoms develop, notify the Dr. who performed your procedure. BLEEDING: If the procedure site on your wrist begins to bleed, do not panic 1. Place 1 or 2 fingers firmly just slightly above the insertion site to stop the bleeding. You may be able to feel your pulse as you hold pressure. 2. Lift your finger after 5 minutes to see if the bleeding has stopped. 3. Once the bleeding has stopped, gently wipe the wrist area clean with a bandage. * If the bleeding from your wrist does not stop after 10 minutes, or if there is a large amount of bleeding or spurting, call 911 (do not drive yourself to the hospital). SKIN IRRITATION: * You may experience some redness and/or swelling in the area where radiation was administered. If any skin irritation occurs, please contact your family physician. FOLLOW UP VISIT: 1. Follow up with Dr. Juan in 1-2 weeks. 2. Keep any scheduled doctor appointments. Pending Studies at Discharge: No Stand-Alone Forms: [facility], Smoking Cessation Medications and DC Order Prescriptions: New clopidogrel 75 mg Tablet 75 mg PO QAM 30 Days Qty: 30 RF: 0 metoprolol succinate 50 mg Tablet Extended Release 24 Hr 50 mg PO QAM 30 Days Qty: 30 RF: 0 rosuvastatin [Crestor] 20 mg Tablet 20 mg PO QAM 30 Days Qty: 30 RF: 0 clopidogrel 75 mg tablet 75 mg PO QAM Qty: 30 RF: 0 metoprolol succinate 50 mg tablet extended release 24 hr 50 mg PO QAM Qty: 30 RF: 0 rosuvastatin [Crestor] 20 mg tablet 20 mg PO QAM Qty: 30 RF: 0 Continued losartan 25 mg tablet 25 mg PO BID Qty: 180 RF: 3 multivitamin Tablet 1 tab PO DAILY RF: 0 garlic 1,000 mg Capsule 2,000 mg PO DAILY RF: 0 saw palmetto 160 mg Capsule 160 mg PO DAILY RF: 0 montelukast 10 mg tablet 10 mg PO DAILY RF: 0 cyclobenzaprine 5 mg tablet 5 mg PO TID PRN (Reason: muscle spasm) Qty: 30 RF: 0 Flovent HFA 110 mcg/actuation HFA aerosol inhaler 2 puff inhalation BID PRN (Reason: Shortness Of Breath Or Wheezing) RF: 0 nitroglycerin 0.4 mg tablet, sublingual 0.4 mg sublingual UD PRN (Reason: Chest Pain) RF: 0 aspirin [Aspirin Low Dose] 81 mg Tablet,Delayed Release (Dr/Ec) 81 mg PO DAILY RF: 0 Discontinued atorvastatin 10 mg tablet 10 mg PO Q OTHER DAY Qty: 90 RF: 3 Discharge Orders: Discharge Order (Routine); Ordered 01/25/21 Ordered By: Crystal Simon/Other Patient Handouts: Symptoms of a Heart Attack, Heart Disease Intimacy, Heart Attack Angina Sx, CAD Admission Data Admit Date/Time: 01/23/21 18:59 Attending Provider: Tiffanie Duarte Admit Provider: Yancy Orr Primary Care Provider: Ned Singh Other Providers: Fabiano Alvarado ; Yancy Orr Other Interventions: Discharge Summary Assessment (RN) Last Done: 01/25/21 13:58 Supervising Physician Co-Signing Physician Notes Resident Physician Supervision Note: I independently interviewed and examined the patient and verified the kothari history and physical, reviewed labs and image studies and agree with resident Dr. Mullins findings and care plan. Resident Activity Tracking Resident Involvement: Resident Care Provided Care Provided: Adult Hospital Medicine
--- NOTE | 2021-01-26 06:29 | Electrocardiogram Report ---
Test Reason : Blood Pressure : / mmHG Vent. Rate : 073 BPM Atrial Rate : 073 BPM P-R Int : 150 ms QRS Dur : 086 ms QT Int : 362 ms P-R-T Axes : 045 -41 023 degrees QTc Int : 398 ms Normal sinus rhythm Left axis deviation Moderate voltage criteria for LVH, may be normal variant RSR' or QR pattern in V1 suggests right ventricular conduction delay Abnormal ECG When compared with ECG of 24-JAN-2021 04:34, No significant change Confirmed by Enrique Vallejo ([id number]) on 01/26/2021 6:29:34 AM Referred By: REFERRED SELF Confirmed By:Enrique Vallejo
--- NOTE | 2021-02-07 12:34 | Coding Query ---
CODING QUERY To promote full compliance with coding requirements relating to patient care, provider participation is requested in all cases of chief science officer uncertainty. Please assist us with the question(s) below: Coding Question(s): Pt admitted with chest pain. Prior history of AL. Cardiac Cath done, 2 stents placed. Progress note 01/24 mentions " rising troponin likely related to NSTEMI". Discharge Summary does not mention NSTEMI- . Please check below the phrase that describes the NSTEMI. Thanks for your help! KELBY Villegas [facility] Physician's Response(s): ____x Patient was treated for NSTEMI Patient was not treated for NSTEMI Cannot Clinically Correlate if the NSTEMI was treated Other: please document: Principal Diagnosis: "that condition established after study, to be chiefly responsible for occasioning the admission of the patient to the hospital for care." Co-Existing Principal Diagnosis: "when two or more diagnoses equally meet the criteria for principal diagnosis as determined by the circumstances of admission, diagnostic work up, and/or therapy provided, and the Alphabetic Index, Tabular List, or another coding guideline does not provide sequencing direction, any one of the diagnoses may be sequenced first." "When the physician has documented what appears to be a current diagnosis in the body of the record, but has not included the diagnosis in the final diagnostic statement, the physician should be asked whether the diagnosis should be added." (Source Coding Clinic 2 QTR90. p3-4) JW
== END 2021-01-25 15:23 | disposition home or self-care (01) | DRG 247 ==
LOC: ED 17:21 → EDINP 18:59 → SUATTDRO 18:59 → 1E 01-24 14:44

== ENCOUNTER 2021-01-31 14:31 | Inpatient (IN) ==
[2021-01-31 17:30] LABS: Basophils # (auto) 0.02 K/uL (0-0.2); Basophils % (auto) 0.3 %; Eosinophils # (auto) 0.12 K/uL (0-0.5); Hematocrit (blood only) 43.1 % (42-52); Hemoglobin 14.2 g/dL (14.0-18.0); Immature Granulocytes # (auto) 0.01 K/uL (0.00-0.02); Immature Granulocytes % (auto) 0.2 %; Lymphocytes # (auto) 1.42 K/uL (1.2-3.4); Lymphocytes % (auto) 23.2 %; Mean Corpuscular Hemoglobin 31.3 pg (25-34); Mean Corpuscular Hgb Conc 32.9 g/dL (32-36); Mean Corpuscular Volume 94.9 fL (80-100); Mean Platelet Volume 10.1 fL (7.4-10.4); Monocytes # (auto) 0.52 K/uL (0.11-0.59); Monocytes % (auto) 8.5 %; Neutrophils # (auto) 4.03 K/uL (1.4-6.5); Neutrophils % (auto) 65.8 %; Platelet Count 334 K/uL (130-400); RDW Coefficient of Variation 12.5 % (11.5-14.5); RDW Standard Deviation 43.1 fL (36.4-46.3); Red Blood Count 4.54 M/uL (4.7-6.1); White Blood Count 6.12 K/uL (4.8-10.8)
[2021-01-31 17:48] LABS: Albumin Level 3.7 gm/dl (3.4-5.0); BUN Creatinine Ratio 13.9 (10-20); Calcium 9.1 mg/dl (8.5-10.1); Creatinine Clr Calc Pharmacy 59.5 ml/min; Est GFR (Non-African American) 62.1 ml/min; Potassium 4.7 mmol/L (3.5-5.1)
[2021-01-31 18:03] LABS: Albumin Globulin Ratio 0.9 (0.9-2); Bilirubin,Total 0.4 mg/dl (0.2-1); Globulin 4.1 gm/dl (2.5-4.0); Thyroid Stimulating Hormone 1.03 uIu/ml (0.300-4.500); Total Protein 7.8 gm/dl (6.4-8.2); Troponin I 2.6 ng/ml (0-0.045)
[2021-01-31] MEDS ORDERED: ASPIRIN CHEW 324 MG PO STA (18:11)
--- NOTE | 2021-01-31 18:16 | Emergency Department Note ---
Impression & Plan Elevated troponin ADMIT ED Provider Note HPI: Patient arrived to the ED via [employer]IVATE TRANSPORT The patient is a 65-year-old male with history of coronary artery disease, he is status post multiple stents to the right RCA on 01/24 for NSTEMI, presents the emergency department with a chief complaint of generalized weakness for the past several days. Patient was concerned that he was weak and tired because he has been taking metoprolol. He denies any chest pain. Protocol labs were sent when the patient was in the waiting room his troponin did result at 2.6, EKG does not show any evidence of ST elevation.Patient was then brought back to her room, on my initial assessment the patient is resting comfortably, denies any current complaints of chest pain or shortness of breath. States he just feels "tired". He is otherwise hemodynamically stable and in no acute distress on my initial evaluation. ROS: - General: Generalized weakness, feeling of fatigue *10 point review systems was conducted and is otherwise negative unless stated above *Outpatient medications and allergy history reviewed PE: General: Alert, NAD HEENT: Normocephalic, atraumatic, trachea midline Eyes: Extraocular eye movement is intact, no scleral erythema Pulmonary: Clear to auscultation bilaterally, no wheezing Cardio: Regular rate and rhythm GI: Abdomen is soft, nontender : No suprapubic tenderness MSK: No evidence of trauma or malformation of the extremities, no edema Skin: No evidence of rash Neuro: Alert, no focal deficits 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 Weber at this facility.On arrival here to the ED the patient appears we ll, denies any chest pain. Lab work was noted to have an elevated troponin at 2.6. Labwork Otherwise is largely unremarkable, patient denies any recent fever cough, will order COVID-19 testing for screening for admission.Chest x-ray was obtained and shows no evidence of any acute abnormality. Interventions included Oral aspirin. I discussed the patient's presentation with on-call interventional cardiology, Dr. Benitez, He states at this time given that the patient is asymptomatic and he does not have any acute ischemic changes on his EKG we should hold off on initiating a heparin drip. We will plan for admission and trending of troponin Levels. On my reevaluation the patient is resting comfortably, he remains hemodynamically stable, he is in agreement for admission, case was discussed with the on-call hospitalist for [facility], Dr. Webb, who accepted the patient to a telemetry bed for further management. Diagnosis: 1. Elevated troponin level 2. Generalized weakness 3. History of coronary artery disease with recent stenting to the RCA Post procedure day # 7 Disposition: Admission Can Sky DO Emergency Medicine Past Med/Surg History Medical History Abdominal pain Anxiety Chest pain Chest pain Chills Corneal abrasion, left Dyslipidemia Elevated lipase Groin rash Heart palpitations Hx of coronary artery disease Hx of myocardial infarction Hypertension Palpitations Palpitations Surgical History Hx of heart artery stent Family History Father , Age 42 from an [place] Coronary heart disease Other Family history non-contributory No family history of adverse response to anesthesia No family history of bleeding disorder Social History Smoking Status: Former smoker Second Hand Exposure: No; Hx Alcohol Use: No Hx Substance Use: No Preferred Language: Romanian Communication Ability: Effective Key Bed Installer Required: No Beliefs That Will Affect Care: None marital status: Current Living Situation: Alone current occupational status: employed Feels Safe at Home: Yes Assistive Devices: None Allergies Allergies Allergy/AdvReac Type Severity Reaction Status Date / Time atorvastatin Allergy Unknown mental Verified 01/31/21 18:51 disturabances ciprofloxacin Allergy Unknown SHORTNESS Verified 01/31/21 18:51 OF BREATH Sulfa (Sulfonamide Allergy Unknown Unknown Verified 01/31/21 18:51 Antibiotics) metronidazole AdvReac Intermediate COBNFUSION Verified 01/31/21 18:51 Home Meds Home Medications Medication Instructions Recorded Confirmed montelukast 10 mg tablet 10 mg PO HS 02/11/18 01/31/21 multivitamin 1 tab PO DAILY 02/11/18 01/31/21 saw palmetto 160 mg capsule 160 mg PO QAM 02/11/18 01/31/21 fluticasone propionate 110 2 puff INHALATION BID PRN 09/13/18 01/31/21 mcg/actuation HFA aerosol inhaler (Flovent HFA) aspirin 81 mg tablet,delayed 81 mg PO QAM 01/23/21 01/31/21 release (Aspirin Low Dose) nitroglycerin 0.4 mg sublingual 0.4 mg SUBLINGUAL UD PRN 01/23/21 01/31/21 tablet Previous Rx's Medication Instructions Recorded losartan 25 mg tablet 25 mg PO BID #180 tab 01/22/21 clopidogrel 75 mg tablet 75 mg PO QAM 30 Days #30 tab 01/25/21 metoprolol succinate 50 mg 50 mg PO QAM 30 Days #30 tab 01/25/21 tablet,extended release 24 hr rosuvastatin 20 mg tablet (Crestor) 20 mg PO QAM 30 Days #30 tab 01/25/21 Results & Data (ED) Vital Signs Vital Signs - 24 hr 01/31/21 14:41 01/31/21 18:32 Temperature 36.7 C Temperature Source Temporal Artery Scan Pulse Rate 70 Respiratory Rate 18 Respiratory Effort / Characteristics Non-Labored Respiratory Depth Normal Respiratory Pattern Regular Blood Pressure 120/83 Blood Pressure Mean 95 Blood Pressure Position Sitting Pulse Oximetry 98 97 Oxygen Delivery Method Room Air Room Air Oxygen Flow Rate 0 Sepsis Recent Fever Within 48 Hours No Sepsis New/Unexplained Change in Mental Status No Sepsis Action Taken by Nursing No Action Required Laboratory Data Result diagrams: 01/31/21 17:15 01/31/21 17:15 Lab Results 01/31/21 01/31/21 01/31/21 Range/Units 17:15 17:15 19:00 WBC 6.12 (4.8-10.8) K/uL RBC 4.54 L (4.7-6.1) M/uL Hgb 14.2 (14.0-18.0) g/dL Hct 43.1 (42-52) % MCV 94.9 (80-100) fL MCH 31.3 (25-34) pg MCHC 32.9 (32-36) g/dL RDW Std Deviation 43.1 (36.4-46.3) fL RDW Coeff of Vielka 12.5 (11.5-14.5) % Plt Count 334 (130-400) K/uL MPV 10.1 (7.4-10.4) fL Immature Gran % (Auto) 0.2 % Neut % (Auto) 65.8 % Lymph % (Auto) 23.2 % [place] % (Auto) 8.5 % Eos % (Auto) 2.0 % Baso % (Auto) 0.3 % Neut # (Auto) 4.03 (1.4-6.5) K/uL Lymph # (Auto) 1.42 (1.2-3.4) K/uL [place] # (Auto) 0.52 (0.11-0.59) K/uL Eos # (Auto) 0.12 (0-0.5) K/uL Baso # (Auto) 0.02 (0-0.2) K/uL Immature Gran # (Auto) 0.01 (0.00-0.02) K/uL Sodium 136 (136-145) mmol/L Potassium 4.7 (3.5-5.1) mmol/L Chloride 104 (98-107) mmol/L Carbon Dioxide 30 (21-32) mmol/L Anion Gap 2.0 L (3-11) BUN 17 (7-18) mg/dl Creatinine 1.23 (0.6-1.4) mg/dl Est Cr Clr Drug Dosing 59.5 ml/min Est GFR ( Amer) 72.0 ml/min Est GFR (Non-Af Amer) 62.1 ml/min BUN/Creatinine Ratio 13.9 (10-20) Glucose 99 (70-99) mg/dl Calcium 9.1 (8.5-10.1) mg/dl Total Bilirubin 0.4 (0.2-1) mg/dl AST 16 (15-37) U/L ALT 30 (12-78) Alkaline Phosphatase 62 (45-117) U/L Troponin I 2.600 H* (0-0.045) ng/ml Total Protein 7.8 (6.4-8.2) gm/dl Albumin 3.7 (3.4-5.0) gm/dl Globulin 4.1 H (2.5-4.0) gm/dl Albumin/Globulin Ratio 0.9 (0.9-2) TSH 1.030 (0.300-4.500) uIu/ml SARS-CoV-2 (PCR) NEGATIVE (Negative) Influenza Type A (PCR) Negative (Neg) Influenza Type B (PCR) Negative (Neg) RSV (RT-PCR) Negative (Neg) Administered Medications Discontinued Medications Aspirin (Aspirin Chew 324 Mg) 324 mg PO NOW STA Stop: 01/31/21 18:12 Last Admin: 01/31/21 18:23 Dose: 324 mg Documented by: [id number] Imaging Data Radiologist's Impression: Chest X-Ray 01/31/21 18:58 XR chest 1V portable CLINICAL HISTORY: Chest pain. COMPARISON STUDY: 01/23/2021 TECHNIQUE: 1 view of the chest FINDINGS: Single frontal view of the chest demonstrates the cardiomediastinal silhouette t o be within normal limits. The lungs are clear of alveolar opacities. There is no evidence for pleural effusion. There is no evidence for vascular congestion. There is no acute osseous pathology. IMPRESSION: No acute cardiopulmonary disease. ACT 112: Negative or not required by law. Electronically signed by: Daljit Lewis M.D. 01/31/2021 7:17 PM Discharge Plan Visit Data Chief Complaint: Weakness Stated Complaint: DISORIENTATION,FATIGUED,2 STENTS PUT IN 1WK AGO ED Provider: Can Sky Discharge Problem: Elevated troponin Forms Stand Alone Forms: My [facility] Prescriptions Prescriptions: No Action losartan 25 mg tablet 25 mg PO BID Qty: 180 RF: 3 multivitamin Tablet 1 tab PO DAILY RF: 0 saw palmetto 160 mg Capsule 160 mg PO QAM RF: 0 montelukast 10 mg tablet 10 mg PO HS RF: 0 Flovent HFA 110 mcg/actuation HFA aerosol inhaler 2 puff inhalation BID PRN (Reason: Shortness Of Breath Or Wheezing) RF: 0 nitroglycerin 0.4 mg tablet, sublingual 0.4 mg sublingual UD PRN (Reason: Chest Pain) RF: 0 aspirin [Aspirin Low Dose] 81 mg Tablet,Delayed Release (Dr/Ec) 81 mg PO QAM RF: 0 clopidogrel 75 mg Tablet 75 mg PO QAM 30 Days Qty: 30 RF: 0 metoprolol succinate 50 mg Tablet Extended Release 24 Hr 50 mg PO QAM 30 Days Qty: 30 RF: 0 rosuvastatin [Crestor] 20 mg Tablet 20 mg PO QAM 30 Days Qty: 30 RF: 0 Referrals Referrals: Ned Singh DO [Primary Care Provider] -
--- NOTE | 2021-01-31 19:19 | XRay Report ---
XR chest 1V portable CLINICAL HISTORY: Chest pain. COMPARISON STUDY: 01/23/2021 TECHNIQUE: 1 view of the chest FINDINGS: Single frontal view of the chest demonstrates the cardiomediastinal silhouette to be within normal li mits. The lungs are clear of alveolar opacities. There is no evidence for pleural effusion. There is no evidence for vascular congestion. There is no acute osseous pathology. IMPRESSION: No acute cardiopulmonary disease. ACT 112: Negative or not required by law. Electronically signed by: Daljit Lewis M.D. 01/31/2021 7:17 PM
--- NOTE | 2021-01-31 19:39 | History & Physical Report ---
Date of Service January 31, 2021 Assessment & Plan (1) Fatigue: Plan: Patient is a 65 year old male presenting today with history of fatigue and weakness starting this morning, of note had recent NSTEMI requiring PCI to the distal and mid RCA on 01/24/21. Fatigue -Patient with 1 day history of weakness after taking his medications, though has been feeling well otherwise since discharge -Recent NSTEMI w/ PCI to distal and mid RCA 01/24/21 -Trop on discharge 0.147, not trended to peak -Presenting now with trop 2.6, will continue to trend q6h x2 -EKG with new T-Wave inversions of II, III, aVF - new from previous EKG on 01/25, though suspect that these changes are related to recent nstemi and PCI -Blood pressure appropriate 120/83, will continue Metoprolol succ 50mg qAM - may require reduction if patient is having weakness symptoms secondary to beta elsie -COVID-19 and Flu A/B negative Recent NSTEMI requiring PCI -Continue Metoprolol 50mg qAM -continue ASA -Continue Plavix -Continue Losartan 25mg BID -Continue Crestor 20mg qAM Dispo: Med/Surg Telemetry for continuous cardiac monitoring FEN: HH diet DVT: SCDs Code: Full (2) Hx of myocardial infarction: (3) S/P coronary artery stent placement: History of Present Illness Chief Complaint: Weakness Primary Care Provider: Ned Singh DO Patient is a 65 year old male presenting today with history of fatigue and weakness starting this morning, of note had recent NSTEMI requiring PCI to the distal and mid RCA on 01/24/21. 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 He states that up until this morning, he has had no issues. This morning roughly 1 hour after taking his medications he noticed that he was experiencing significant fatigue and weakness. He checked his BP and found himself to be ~111/70 when he had been running in the 120-130's systolic the rest of the week. He notes that he tried to lay down to rest, but because of how fatigued he was, wasn't able to fall asleep. He denies any chest pain, chest pressure, SOB, fever, chills, abdominal pain, NVD, headache. He has been taking his medications as prescribed and has not missed any doses to date. Med Hx: NSTEMI w/ PCI, Dyslipidemia, Anxiety Surg Hx: Cardiac cath 10 years ago and PCI to distal and mid RCA 01/24/21 Soc Hx: Quit tobacco use 30 years ago, had smoked for 10 years (patient unsure of amount). Drinks 1-2 beers/week, has not had alcohol in 8 months. Denies illicit drug use Fam Hx: Father MS at age 43 Allergies Allergy/AdvReac Type Severity Reaction Status Date / Time atorvastatin Allergy Unknown mental Verified 01/31/21 18:51 disturabances ciprofloxacin Allergy Unknown SHORTNESS Verified 01/31/21 18:51 OF BREATH Sulfa (Sulfonamide Allergy Unknown Unknown Verified 01/31/21 18:51 Antibiotics) metronidazole AdvReac Intermediate COBNFUSION Verified 01/31/21 18:51 Home Medications Medication Instructions Recorded Confirmed Type montelukast 10 mg tablet 10 mg PO HS 02/11/18 01/31/21 History multivitamin 1 tab PO DAILY 02/11/18 01/31/21 History saw palmetto 160 mg capsule 160 mg PO QAM 02/11/18 01/31/21 History fluticasone propionate 110 2 puff INHALATION BID PRN 09/13/18 01/31/21 History mcg/actuation HFA aerosol inhaler (Flovent HFA) losartan 25 mg tablet 25 mg PO BID #180 tab 01/22/21 01/31/21 Rx aspirin 81 mg tablet,delayed 81 mg PO QAM 01/23/21 01/31/21 History release (Aspirin Low Dose) nitroglycerin 0.4 mg sublingual 0.4 mg SUBLINGUAL UD PRN 01/23/21 01/31/21 Histo ry tablet clopidogrel 75 mg tablet 75 mg PO QAM 30 Days #30 tab 01/25/21 01/31/21 Rx metoprolol succinate 50 mg 50 mg PO QAM 30 Days #30 tab 01/25/21 01/31/21 Rx tablet,extended release 24 hr rosuvastatin 20 mg tablet (Crestor) 20 mg PO QAM 30 Days #30 tab 01/25/21 01/31/21 Rx Past Med/Surg History Medical History Abdominal pain Anxiety Chest pain Chest pain Chills Corneal abrasion, left Dyslipidemia Elevated lipase Groin rash Heart palpitations Hx of coronary artery disease Hx of myocardial infarction Hypertension Palpitations Palpitations Surgical History Hx of heart artery stent Family History Father , Age 42 from an [place] Coronary heart disease Other Family history non-contributory No family history of adverse response to anesthesia No family history of bleeding disorder Social History Smoking Status: Former smoker Second Hand Exposure: No; Hx Alcohol Use: No Hx Substance Use: No Preferred Language: Latvian Communication Ability: Effective 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 And 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: No Beliefs That Will Affect Care: None marital status: Current Living Situation: Alone current occupational status: employed Feels Safe at Home: Yes Assistive Devices: None Review of Systems Review of Systems: All systems reviewed & are unremarkable except as noted in Subjective Physical Exam Constitutional: well developed, well nourished and cooperative Eyes: PERRL, conjunctivae normal, anicteric sclerae ENMT: external ear and nose normal, oropharynx normal Neck: trachea midline, no thyromegaly Respiratory: normal respiratory effort, lungs clear to auscultation Cardiovascular: RRR, no murmur, no edema Heart Sounds: no murmur and no cardiac rub Vessels: no JVD Gastrointestinal (Abdomen): normal bowel sounds, soft, nontender, no hepatosplenomegaly Musculoskeletal: no cyanosis or clubbing, extremities motor strength 5/5 Skin: no rashes, warm and dry R radial site well healing Neurologic: PERRL, EOMI, accommodation nl, no face palsy, no dysarthria Psychiatric: A+Ox3, euthymic affect Results & Data Results & Data ([facility]) Vital Signs (Past 12 Hours) Vital Signs Temp Pulse Resp BP Pulse Ox 01/31/21 18:32 97 01/31/21 14:41 36.7 C 70 18 120/83 98 Laboratory Results Laboratory Results WBC 6.12 K/uL (4.8-10.8) 01/31/21 17:15 RBC 4.54 M/uL (4.7-6.1) L 01/31/21 17:15 Hgb 14.2 g/dL (14.0-18.0) 01/31/21 17:15 Hct 43.1 % (42-52) 01/31/21 17:15 MCV 94.9 fL (80-100) 01/31/21 17:15 MCH 31.3 pg (25-34) 01/31/21 17:15 MCHC 32.9 g/dL (32-36) 01/31/21 17:15 RDW Std Deviation 43.1 fL (36.4-46.3) 01/31/21 17:15 RDW Coeff of Vielka 12.5 % (11.5-14.5) 01/31/21 17:15 Plt Count 334 K/uL (130-400) 01/31/21 17:15 MPV 10.1 fL (7.4-10.4) 01/31/21 17:15 Immature Gran % (Auto) 0.2 % 01/31/21 17:15 Neut % (Auto) 65.8 % 01/31/21 17:15 Lymph % (Auto) 23.2 % 01/31/21 17:15 [place] % (Auto) 8.5 % 01/31/21 17:15 Eos % (Auto) 2.0 % 01/31/21 17:15 Baso % (Auto) 0.3 % 01/31/21 17:15 Neut # (Auto) 4.03 K/uL (1.4-6.5) 01/31/21 17:15 Lymph # (Auto) 1.42 K/uL (1.2-3.4) 01/31/21 17:15 [place] # (Auto) 0.52 K/uL (0.11-0.59) 01/31/21 17:15 Eos # (Auto) 0.12 K/uL (0-0.5) 01/31/21 17:15 Baso # (Auto) 0.02 K/uL (0-0.2) 01/31/21 17:15 Immature Gran # (Auto) 0.01 K/uL (0.00-0.02) 01/31/21 17:15 Sodium 136 mmol/L (136-145) 01/31/21 17:15 Potassium 4.7 mmol/L (3.5-5.1) 01/31/21 17:15 Chloride 104 mmol/L (98-107) 01/31/21 17:15 Carbon Dioxide 30 mmol/L (21-32) 01/31/21 17:15 Anion Gap 2.0 (3-11) L 01/31/21 17:15 BUN 17 mg/dl (7-18) 01/31/21 17:15 Creatinine 1.23 mg/dl (0.6-1.4) 01/31/21 17:15 Est Cr Clr Drug Dosing 59.5 ml/min 01/31/21 17:15 Est GFR ( Amer) 72.0 ml/min 01/31/21 17:15 Est GFR (Non-Af Amer) 62.1 ml/min 01/31/21 17:15 BUN/Creatinine Ratio 13.9 (10-20) 01/31/21 17:15 Glucose 99 mg/dl (70-99) 01/31/21 17:15 Calcium 9.1 mg/dl (8.5-10.1) 01/31/21 17:15 Total Bilirubin 0.4 mg/dl (0.2-1) 01/31/21 17:15 AST 16 U/L (15-37) 01/31/21 17:15 ALT 30 (12-78) 01/31/21 17:15 Alkaline Phosphatase 62 U/L (45-117) 01/31/21 17:15 Troponin I 2.600 ng/ml (0-0.045) H* 01/31/21 17:15 Total Protein 7.8 gm/dl (6.4-8.2) 01/31/21 17:15 Albumin 3.7 gm/dl (3.4-5.0) 01/31/21 17:15 Globulin 4.1 gm/dl (2.5-4.0) H 01/31/21 17:15 Albumin/Globulin Ratio 0.9 (0.9-2) 01/31/21 17:15 TSH 1.030 uIu/ml (0.300-4.500) 01/31/21 17:15 SARS-CoV-2 (PCR) NEGATIVE (Negative) 01/31/21 19:00 Influenza Type A (PCR) Negative (Neg) 01/31/21 19:00 Influenza Type B (PCR) Negative (Neg) 01/31/21 19:00 RSV (RT-PCR) Negative (Neg) 01/31/21 19:00 Diagnostic Findings Impressions Chest X-Ray 01/31/21 18:58 XR chest 1V portable CLINICAL HISTORY: Chest pain. COMPARISON STUDY: 01/23/2021 TECHNIQUE: 1 view of the chest FINDINGS: Single frontal view of the chest demonstrates the cardiomediastinal silhouette to be within normal limits. The lungs are clear of alveolar opacities. There is no evidence for pleural effusion. There is no evidence for vascular congestion. There is no acute osseous pathology. IMPRESSION: No acute cardiopulmonary disease. ACT 112: Negative or not required by law. Electronically signed by: Daljit Lewis M.D. 01/31/2021 7:17 PM Supervising Physician Co-Signing Physician Notes Patient seen and examined, chart reviewed, case discussed with Dr. Brooks and I agree with his assessment and plan as documented above. In brief, patient is a pleasant 65yo male with recently CAD s/p cardiac catheterizationon 01/24 with stent x 2 to RCA presenting with fatigue and generalized weakness. Patient states that he slept well last night but when he woke up today he felt very fatigued and wanted to go back to bed. He denies chest pain, palpitations, dizziness, cough, SOB or edema Has been taking his medications as prescribed On exam he is afebrile, HD stable, NAD Skin - intact, no rash HEENT - NC/AT, PERRL, MMM, Neck supple Heart - +S1/S2, regular, no m/r/g, no tenderness Lungs - CTA, no rales/rhonchi/wheezes Abd - +BS, soft, NT/ND Ext - warm, well perfused, no clubbing/cyanosis or edema Labs and images reviewed Trop=2.6 EKG with NSR at 63, left axis deviation, IS=609, QRS=88, ITl=191, TWI present in inferior leads Assessment/Plan - 65yo male with recently diagnosed CAD s/p catheterization wt stent x 2 to RCA presenting with fatigue, elevated troponin 2.6 Prior troponin trend 0.112 --> 0.143 --> 0.147 on 01/24 Possible that troponin continued to increase post-cath and the 2.6 is actually a decline No cardiac symptoms. No acute EKG changes -Trend troponin -Cardiac monitoring -Cardiology consultation if troponin continues to increase -Continue home medications. Consider metoprolol as cause for fatigue? -Remainder of plan as above Resident Activity Tracking Resident Involvement: Resident Care Provided Care Provided: Adult Hospital Medicine
[2021-01-31 19:46] LABS: Influenza A virus by PCR Negative (Neg); Influenza B virus by PCR Negative (Neg); RSV by PCR Negative (Neg); SARS CoV2 RNA(COVID-19) InHosp NEGATIVE (Negative)
--- NOTE | 2021-01-31 20:08 | Billing Data ---
Date of Service January 31, 2021 Coding Level of Care Code 79491 Initial Inpt Care Lvl 2
[2021-01-31] MEDS ORDERED: NITROGLYCERIN SL 0.4 MG/TAB TAB SL PRN (21:38)
[2021-01-31] MEDS ORDERED: ACETAMINOPHEN 325 MG TAB PO PRN (21:38)
[2021-01-31] MEDS ORDERED: ONDANSETRON INJ 2 MG/ML 2 ML VIAL IV PRN (21:38)
[2021-01-31] MEDS ORDERED: FLUTICASONE FUROATE 200MCG 14 PUFFS/INHALER INH PRN (21:51)
[2021-01-31] MEDS ORDERED: FAMOTIDINE 20 MG in SYRINGE 3 ML IV PRN (22:00)
[2021-01-31] MEDS: MONTELUKAST SODIUM 10 MG TABLET PO SCH (22:40)
[2021-01-31] MEDS: LOSARTAN POTASSIUM 25 MG TAB PO SCH (22:40)
[2021-02-01 06:07] LABS: Basophils # (auto) 0.03 K/uL (0-0.2); Basophils % (auto) 0.5 %; Eosinophils # (auto) 0.16 K/uL (0-0.5); Eosinophils % (auto) 2.7 %; Hematocrit (blood only) 42.1 % (42-52); Hemoglobin 13.8 g/dL (14.0-18.0); Immature Granulocytes # (auto) 0.02 K/uL (0.00-0.02); Immature Granulocytes % (auto) 0.3 %; Lymphocytes # (auto) 2.21 K/uL (1.2-3.4); Lymphocytes % (auto) 37.8 %; Mean Corpuscular Hemoglobin 30.5 pg (25-34); Mean Corpuscular Hgb Conc 32.8 g/dL (32-36); Mean Corpuscular Volume 93.1 fL (80-100); Mean Platelet Volume 10.1 fL (7.4-10.4); Monocytes # (auto) 0.64 K/uL (0.11-0.59); Monocytes % (auto) 10.9 %; Neutrophils # (auto) 2.79 K/uL (1.4-6.5); Neutrophils % (auto) 47.8 %; Platelet Count 318 K/uL (130-400); RDW Coefficient of Variation 12.4 % (11.5-14.5); RDW Standard Deviation 41.8 fL (36.4-46.3); Red Blood Count 4.52 M/uL (4.7-6.1); White Blood Count 5.85 K/uL (4.8-10.8)
--- NOTE | 2021-02-01 06:42 | Hospitalist Progress Note ---
Date of Service February 01, 2021 Assessment & Plan (1) Fatigue: Plan: Patient is a 65 year old male with recent history of NSTEMI requiring PCI to distal-mid RCA on 01/24 who presented to [facility] on 01/31 for fatigue and weakness on day of admission. His troponin on admission was appreciable Fatigue -Patient with 1 day history of weakness after taking his medications, though has been feeling well otherwise since discharge -Workup as follows: -Recent NSTEMI w/ PCI to distal and mid RCA 01/24/21 - s/p NATIVIDAD x 2 -Trop on discharge 0.147, not trended to peak -Admitted with troponin of 2.6, now downtrending x 2 reads (1.8 this AM) -EKG with questionable T-wave abnormalities in II, III, aVF - new, but suspect secondary to recent NSTEMI -TSH, other chemistries normal -VSS throughout admission so far -COVID-19, Influenza negative -Etiology unclear, potentially multifactorial. Elevated troponin is worrisome; though possible it is from previous event, would favor to r/o ACS first. May be contributory from metoprolol. Elevated Troponin -- in setting of NSTEMI requiring PCI approx. 6 days prior to admission -Recent NSTEMI w/ PCI to distal and mid RCA 01/24/21 - s/p NATIVIDAD x 2 -Troponin on admission 2.6 --> has subsequently downtrended x 2 to 1.8 -ECG on admission demonstrating new TWIs in the inferior leads compared to previous -Check TTE -Low-dose hep gtt -Cardiology consult: appreciate insight on possibility of in-stent restenosis given presentation, ?need for recatheterization Recent NSTEMI requiring PCI -Continue Metoprolol 50mg qAM -continue ASA -Continue Plavix -Continue Losartan 25mg BID -Continue Crestor 20mg qAM Dispo: Med/Surg Telemetry for continuous cardiac monitoring FEN: HH diet DVT: SCDs Code: Full (2) Hx of myocardial infarction: (3) S/P coronary artery stent placement: Admission and Anticipated Discharge Date Admission Date: January 31, 2021 Supervising Physician Co-Signing Physician Notes Patient seen and examined, chart reviewed, case discussed with Dr. Brooks and I agree with his assessment and plan as documented above. In brief, patient is a pleasant 65yo male with recently CAD s/p cardiac catheterizationon 01/24 with stent x 2 to RCA presenting with fatigue and generalized weakness. Patient states that he slept well last night but when he woke up today he felt very fatigued and wanted to go back to bed. He denies chest pain, palpitations, dizziness, cough, SOB or edema Has been taking his medications as prescribed On exam he is afebrile, HD stable, NAD a Labs and images reviewed Trop=2.6; 1.8 EKG with NSR at 63, left axis deviation, EF=728, QRS=88, LEm=751, TWI present in inferior leads Assessment/Plan - 65yo male with recently diagnosed CAD s/p catheterization wtih stent x 2 to RCA presenting with fatigue, elevated troponin 2.6 Prior troponin trend 0.112 --> 0.143 --> 0.147 on 01/24 Given that prior trop only gradually increased, likely was at near peak. Wonder if this may have been a new lesion or a blocked stent. No cardiac symptoms. No acute EKG changes -trop is trending down, and will consult cardiology as patient may benefit from cardiac cath prior to discharge. -Cardiac monitoring -Cardiology consultation if troponin continues to increase -Continue home medications. -Remainder of plan as above Subjective NAEO. Denies any further symptoms of fatigue / sleepiness. No pain or discomfort. No chest pressure. No shortness of breath. No lightheaded/dizziness with lying or standing. No nausea, vomiting, diarrhea. No recent illness. Review of Systems Review of Systems: as per HPI Physical Exam Physical Exam: General: Tired, but otherwise well appearing 65yoM in NAD. HEENT: NCAT. Eyes - Sclera are white, anicteric, and without injection. No JVD. Cardiac: Normal rate and regular rhythm; S1 and S2 present with no murmurs, rubs, or gallops. Pulmonary: Good respiratory effort with symmetric expansion of the chest. No use of accessory muscles. Lungs were clear to auscultation bilaterally with no crackles or wheezes. Abdominal: Normoactive bowel sounds. Abdomen was soft, nondistended, and non- tender to palpation. Extremities: Upper and lower extremities are warm and well perfused. Capillary refill assessed in UE was < 3 sec. Results & Data Results & Data ([facility]) Vital Signs (Past 12 Hours) Vital Signs Temp Pulse Pulse Resp BP BP Pulse Ox 12/25/21 03:33 70 02/01/21 01:47 36.7 C 67 18 124/80 97 01/31/21 22:00 65 01/31/21 21:00 67 15 129/75 01/31/21 20:30 77 19 01/31/21 20:00 82 20 01/31/21 19:00 63 19 98 Resident Activity Tracking Resident Involvement: Resident Care Provided Care Provided: Adult Hospital Medicine
[2021-02-01 06:47] LABS: Creatinine Clr Calc Pharmacy 63.6 ml/min; Est GFR (African American) 78.1 ml/min; Est GFR (Non-African American) 67.4 ml/min; Magnesium 2.4 mg/dl (1.8-2.4); Potassium 3.9 mmol/L (3.5-5.1)
[2021-02-01 07:24] LABS: Troponin I 1.8 ng/ml (0-0.045)
[2021-02-01] MEDS: LOSARTAN POTASSIUM 25 MG TAB PO SCH ×2 (08:49→21:26)
[2021-02-01] MEDS: MULTIVITAMIN TAB PO SCH (08:50)
[2021-02-01] MEDS: CLOPIDOGREL BISULFATE 75 MG TAB PO SCH (08:50)
[2021-02-01] MEDS: METOPROLOL SUCC 50MG EXT REL TAB PO SCH ×2 (08:50→09:03)
[2021-02-01] MEDS: ASPIRIN 81 MG ECTAB PO SCH (08:50)
[2021-02-01] MEDS: ROSUVASTATIN CALCIUM 20 MG TAB PO SCH (08:50)
--- NOTE | 2021-02-01 10:31 | Electrocardiogram Report ---
Test Reason : Blood Pressure : / mmHG Vent. Rate : 063 BPM Atrial Rate : 063 BPM P-R Int : 152 ms QRS Dur : 088 ms QT Int : 396 ms P-R-T Axes : 038 -41 -13 degrees QTc Int : 405 ms Normal sinus rhythm Left axis deviation Minimal voltage criteria for LVH, may be normal variant Abnormal ECG When compared with ECG of 25-JAN-2021 11:57, Inverted T waves have replaced nonspecific T wave abnormality in Inferior leads Confirmed by Gennaro Panda ([id number]) on 02/01/2021 10:31:26 AM Referred By: REFERRED SELF Confirmed By:Gennaro Panda
--- NOTE | 2021-02-01 10:43 | Electrocardiogram Report ---
Test Reason : Blood Pressure : / mmHG Vent. Rate : 060 BPM Atrial Rate : 060 BPM P-R Int : 152 ms QRS Dur : 096 ms QT Int : 416 ms P-R-T Axes : 040 -41 -26 degrees QTc Int : 416 ms Normal sinus rhythm Left axis deviation Incomplete right bundle branch block Moderate voltage criteria for LVH, may be normal variant Possible Lateral infarct , age undetermined Abnormal ECG When compared with ECG of 31-JAN-2021 14:47, (unconfirmed) Incomplete right bundle branch block is now Present Borderline criteria for Lateral infarct are now Present Confirmed by Gennaro Panda ([id number]) on 02/01/2021 10:42:59 AM Referred By: REFERRED SELF Confirmed By:Gennaro Panda
[2021-02-01] MEDS ORDERED: Heparin IV Adult Wt-Based Low-Dose *NO* Bolus Protocol IV ONE (11:38)
[2021-02-01] MEDS ORDERED: HEPARIN SODIUM/DEXTROSE 25,000 UNITS/500 ML BAG IV SCH (11:45)
[2021-02-01 12:31] LABS: INR 1.2 (0.9-1.1); Partial Thromboplastin Ratio 1.1; Partial Thromboplastin Time 28.2 Seconds (21.0-31.0); Prothrombin Time 11.9 Seconds (9.0-12.0)
[2021-02-01] MEDS: MONTELUKAST SODIUM 10 MG TABLET PO SCH (21:26)
[2021-02-02] MEDS: CLOPIDOGREL BISULFATE 75 MG TAB PO SCH (08:15)
[2021-02-02] MEDS: ASPIRIN 81 MG ECTAB PO SCH (08:15)
[2021-02-02] MEDS: ROSUVASTATIN CALCIUM 20 MG TAB PO SCH (08:16)
[2021-02-02] MEDS: LOSARTAN POTASSIUM 25 MG TAB PO SCH ×2 (08:16→21:27)
[2021-02-02] MEDS: MULTIVITAMIN TAB PO SCH (08:16)
[2021-02-02] MEDS: METOPROLOL SUCC 50MG EXT REL TAB PO SCH (08:18)
--- NOTE | 2021-02-02 09:42 | XCELERA ---
[id number]
--- NOTE | 2021-02-02 11:10 | Cardiology Consultation ---
Date of Consultation February 02, 2021 Assessment & Plan (1) Elevated troponin: -troponin was 2.6 at time of this admission. -previous troponin during admission for acute coronary syndrome peaked at 0.147. -no troponin was drawn after his recent intracoronary procedure. -does demonstrate new inferior T-wave changes. -a staged procedure for the mid LAD stenosis was contemplated previously. -would proceed with cardiac catheterization in a.m.. -discussed with Dr. Benitez. (2) CAD (coronary artery disease): -2 stents placed in the mid and distal RCA January 24, 2021. -70% mid LAD stenosis considered for staged procedure. -cardiac catheterization in a.m.. -continue metoprolol succinate, losartan, rosuvastatin, aspirin and clopidogrel. (3) Hypertension: -adequate control on current regimen. (4) Dyslipidemia: -continue rosuvastatin. History of Present Illness Attending Physician: Gary Gonzalez History of Present Illness Mr. Baltazar is a 65-year-old male admitted on January 31 with an elevated troponin level and new EKG changes. This consultation was ordered to assistance cardiac management. Of note, patient typically follows with Dr. Juan in the outpatient setting. The patient's recent history began on January 23 when he was admitted with an acute coronary syndrome. He underwent a cardiac catheterization which revealed a high-grade stenosis in the mid and the distal RCA. The patient had 2 NATIVIDAD placed within the RCA (3.5 x 22 [place], 3.5 x 15 [place]). The patient was also noted to have a 70% mid LAD stenosis for which a staged procedure was co ntemplated. For other disease included a 50% proximal LAD, 70% D1, 60% ramus intermedius, and a patent LCx stent. Initial troponin drawn on January 23 was elevated 0.112. Follow-up values were 0.143 and 0.147. No troponin level was drawn after the procedure. The patient was discharged home in stable fashion on January 25. He presented here on January 31 complaining of profound fatigue and weakness. He checks his blood pressure at home and noted to be low for him at 110/60. He presented to the emergency room for further care. Of note, at no time did he experience chest discomfort. On arrival here, the patient had a troponin elevated 2.6. His EKG noted minor inferior T-wave inversions which were new compared to his EKG done on January 25. The patien's cardiac history began in May 2010 when he suffered an acute inferolateral MA. He had a bare metal stent placed within the LCx. Currently, patient is resting comfortably in bed without complaints. Past medical and surgical history 1. Coronary artery disease-see above 2. LCx BMS-May 2010 3. RCA NATIVIDAD x2-January 2021 4. Hypertension 5. Mild LVH 6. Hypercholesterolemia 7. 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 Allergies Allergy/AdvReac Type Severity Reaction Status Date / Time atorvastatin Allergy Unknown mental Verified 01/31/21 18:51 disturabances ciprofloxacin Allergy Unknown SHORTNESS Verified 01/31/21 18:51 OF BREATH Sulfa (Sulfonamide Allergy Unknown Unknown Verified 01/31/21 18:51 Antibiotics) metronidazole AdvReac Intermediate COBNFUSION Verified 01/31/21 18:51 Home Medications Medication Instructions Recorded Confirmed Type montelukast 10 mg tablet 10 mg PO HS 02/11/18 01/31/21 History multivitamin 1 tab PO DAILY 02/11/18 01/31/21 History saw palmetto 160 mg capsule 160 mg PO QAM 02/11/18 01/31/21 History fluticasone propionate 110 2 puff INHALATION BID PRN 09/13/18 01/31/21 History mcg/actuation HFA aerosol inhaler (Flovent HFA) losartan 25 mg tablet 25 mg PO BID #180 tab 01/22/21 01/31/21 Rx aspirin 81 mg tablet,delayed 81 mg PO QAM 01/23/21 01/31/21 History release (Aspirin Low Dose) nitroglycerin 0.4 mg sublingual 0.4 mg SUBLINGUAL UD PRN 01/23/21 01/31/21 History tablet clopidogrel 75 mg tablet 75 mg PO QAM 30 Days #30 tab 01/25/21 01/31/21 Rx metoprolol succinate 50 mg 50 mg PO QAM 30 Days #30 tab 01/25/21 01/31/21 Rx tablet,extended release 24 hr rosuvastatin 20 mg tablet (Crestor) 20 mg PO QAM 30 Days #30 tab 01/25/21 01/31/21 Rx Patient History Medical History Abdominal pain Anxiety Chest pain Chest pain Chills Corneal abrasion, left Dyslipidemia Elevated lipase Groin rash Heart palpitations Hx of coronary artery disease Hx of myocardial infarction Hypertension Palpitations Palpitations Surgical History Hx of heart artery stent Family History Father , Age 42 from an MA Coronary heart disease Other Family history non-contributory No family history of adverse response to anesthesia No family history of bleeding disorder Social History Smoking Status: Former smoker Second Hand Exposure: No; Hx Alcohol Use: No Hx Substance Use: No Preferred Language: Malay Communication Ability: Effective Economic Development Director Required: No Beliefs That Will Affect Care: None marital status: Current Living Situation: Alone current occupational status: employed Feels Safe at Home: Yes Assistive Devices: None Results & Data ([facility]) Vital Signs (Past 12 Hours) Vital Signs Temp Pulse Pulse Resp BP Pulse Ox 02/02/21 07:20 36.6 C 67 18 123/75 98 02/02/21 04:00 36.4 C L 65 18 146/82 H 96 02/02/21 00:00 74 02/01/21 23:04 36.6 C 78 18 143/79 H 96 Laboratory Results CBC notes hemoglobin 13.8, crit 42.1, white count 5.8, platelet count [id number]. Electrolytes note a sodium of 139, potassium 3.9, chloride 108, bicarb 27, BUN 16, creatinine 1.15, and glucose of 94. Initial troponin was 2.6 with follow-up values of 2.02, 1.8, and 0.95. Diagnostic Findings EKG notes normal sinus rhythm with a right-sided conduction delay and inferior T-wave abnormality. Echocardiogram notes normal left ventricular systolic f unction with ejection fraction 55-60%. There were no definite wall motion abnormalities. There was mild LVH. This is unchanged from study done in April 2021. Chest x-ray shows no acute disease. PG Care Time/CCT Total # of Minutes Spent Total Time Spent with Patient: Total time spent is greater than 50% in coordination of care (as documented) at patient's floor/unit and/or counseling patient: Coding Level of Care Code 26793 Inpt Consult Level 5 Diagnoses Elevated troponin R77.8 CAD (coronary artery disease) I25.110 Coronary Disease-Associated Artery/Lesion type: [place]feet artery [place] vs. transplanted heart: blackfeet heart Associated angina: with unstable angina Hypertension I10 Hypertension type: unspecified Dyslipidemia E78.5 (1) CAD (coronary artery disease) Coronary Disease-Associated Artery/Lesion type: blackfeet artery [place] vs. transplanted heart: blackfeet heart Associated angina: with unstable angina Qualified Code(s): I25.110 - Atherosclerotic heart disease of blackfeet coronary artery with unstable angina pectoris (2) Hypertension Hypertension type: unspecified Qualified Code(s): I10 - Essential (primary) hypertension
--- NOTE | 2021-02-02 11:28 | Hospitalist Progress Note ---
Date of Service February 02, 2021 Assessment & Plan (1) Fatigue: Plan: Patient is a 65 year old male with recent history of NSTEMI requiring PCI to distal-mid RCA on 01/24 who presented to [facility] on 01/31 for fatigue and weakness on day of admission. His troponin on admission was appreciable Elevated Troponin -- in setting of NSTEMI requiring PCI approx. 6 days prior to admission -Recent NSTEMI w/ PCI to distal and mid RCA 01/24/21 - s/p NATIVIDAD x 2, with previous contemplation about staged procedure for mid-LAD stenosis -Work-up as follows: -Troponin on admission 2.6 --> has subsequently downtrended x 3 to 0.9 -ECG on admission demonstrating new TWIs in the inferior leads compared to previous -TTE: Normal LVEF. No definite RWMAs. Mild cLVH. -Cardiology consulted: Proceed with catheterization in the AM -Continue cardiac medications as outlined below Fatigue -Patient with 1 day history of weakness after taking his medications, though has been feeling well otherwise since discharge -Workup as follows: -Recent NSTEMI w/ PCI to distal and mid RCA 01/24/21 - s/p NATIVIDAD x 2 -Trop on discharge 0.147, not trended to peak -Admitted with troponin of 2.6, now downtrending x 2 reads (1.8 this AM) -EKG with questionable T-wave abnormalities in II, III, aVF - new, but suspect secondary to recent NSTEMI -TSH, other chemistries normal -VSS throughout admission so far -COVID-19, Influenza negative -Etiology unclear, potentially multifactorial. Elevated troponin is worrisome; though possible it is from previous event, would favor to r/o ACS as culprit first. May be contributory from metoprolol. -See plan above CAD / HTN / HLD -- with recent NSTEMI requiring PCI of the mid-RCA -Continue Metoprolol 50mg qAM -continue DAPT: ASA, Plavix -Continue Losartan 25mg BID -Continue Crestor 20mg qAM Dispo: Med/Surg Telemetry for continuous cardiac monitoring FEN: HH diet - NPO at midnight DVT: SCDs Code: Full (2) Hx of myocardial infarction: (3) S/P coronary artery stent placement: Admission and Anticipated Discharge Date Admission Date: January 31, 2021 Supervising Physician Co-Signing Physician Notes Patient seen and examined, chart reviewed, case discussed with Dr. Brooks and I agree with his assessment and plan as documented above. In brief, patient is a pleasant 65yo male with recently CAD s/p cardiac catheterizationon 01/24 with stent x 2 to RCA presenting with fatigue and generalized weakness. Patient states that he slept well last night but when he woke up today he felt very fatigued and wanted to go back to bed. He denies chest pain, palpitations, dizziness, cough, SOB or edema Has been taking his medications as prescribed On exam he is afebrile, HD stable, NAD Labs and images reviewed Trop=2.6; now below 1. EKG with NSR at 63, left axis deviation, UH=286, QRS=88, COl=899, TWI present in inferior leads Assessment/Plan - 65yo male with recently diagnosed CAD s/p catheterization wtih stent x 2 to RCA presenting with fatigue, elevated troponin 2.6 Prior troponin trend 0.112 --> 0.143 --> 0.147 on 01/24 Given that prior trop only gradually increased, likely was at near peak. Wonder if this may have been a new lesion or a blocked stent. No cardiac symptoms. No acute EKG changes -trop is trending down, Repeat Echo did not show significant change. -Plan is for cardiac cath in AM. -Patient appears anxious about tomorrow's cardiac cath findings, patient may call into Dr. Juan's office for opinion of hypothetical findings. -Cardiac monitoring -Continue home medications. -Remainder of plan as above Subjective NAEO. No further episodes of fatigue. Endorses OK sleep. Denies CP/palpitations/SOB. No n/v/d. Appetite is strong. Review of Systems Review of Systems: as per HPI Physical Exam Physical Exam: General: Tired, but otherwise well appearing 65yoM in NAD. HEENT: NCAT. Eyes - Sclera are white, anicteric, and without injection. No JVD. Cardiac: Normal rate and regular rhythm; S1 and S2 present with no murmurs, rubs, or gallops. Pulmonary: Good respiratory effort with symmetric expansion of the chest. No use of accessory muscles. Lungs were clear to auscultation bilaterally with no crackles or wheezes. Abdominal: Normoactive bowel sounds. Abdomen was soft, nondistended, and non- tender to palpation. Extremities: Upper and lower extremities are warm and well perfused. Capillary refill assessed in UE was < 3 sec. Results & Data Results & Data ([facility]) Vital Signs (Past 12 Hours) Vital Signs Temp Pulse Pulse Resp BP Pulse Ox 02/02/21 11:02 36.4 C L 64 18 133/77 98 02/02/21 07:20 36.6 C 67 18 123/75 98 02/02/21 04:00 36.4 C L 65 18 146/82 H 96 02/02/21 00:00 74 Resident Activity Tracking Resident Involvement: Resident Care Provided Care Provided: Adult Hospital Medicine
--- NOTE | 2021-02-02 11:43 | Electrocardiogram Report ---
Test Reason : Blood Pressure : / mmHG Vent. Rate : 064 BPM Atrial Rate : 064 BPM P-R Int : 154 ms QRS Dur : 096 ms QT Int : 394 ms P-R-T Axes : 023 -36 -25 degrees QTc Int : 406 ms Normal sinus rhythm Left axis deviation Moderate voltage criteria for LVH, may be normal variant T wave abnormality, consider inferior ischemia Abnormal ECG When compared with ECG of 01-FEB-2021 06:13, Nonspecific T wave abnormality now evident in Anterior leads Confirmed by Gennaro Panda ([id number]) on 02/02/2021 11:43:17 AM Referred By: REFERRED SELF Confirmed By:Gennaro Panda
[2021-02-02] MEDS: MONTELUKAST SODIUM 10 MG TABLET PO SCH (21:27)
--- NOTE | 2021-02-02 21:42 | Billing Data ---
Date of Service February 01, 2021 Coding Level of Care Code 14127 Subseq Hosp Care Lvl 3 Time Spent (min) 35
--- NOTE | 2021-02-02 21:46 | Billing Data ---
Date of Service February 02, 2021 Coding Level of Care Code 54847 Subseq Hosp Care Lvl 2
--- NOTE | 2021-02-03 06:33 | Hospitalist Progress Note ---
Date of Service February 03, 2021 Assessment & Plan (1) Fatigue: Plan: Patient is a 65 year old male with recent history of NSTEMI requiring PCI to distal-mid RCA on 01/24 who presented to [facility] on 01/31 for fatigue and weakness on day of admission. His troponin on admission was appreciable. Elevated Troponin -- in setting of NSTEMI requiring PCI approx. 6 days prior to admission -Recent NSTEMI w/ PCI to distal and mid RCA 01/24/21 - s/p NATIVIDAD x 2, with previous contemplation about staged procedure for mid-LAD stenosis -Work-up as follows: -Troponin on admission 2.6 --> has subsequently downtrended x 3 to 0.9 -ECG on admission demonstrating new TWIs in the inferior leads compared to previous -TTE: Normal LVEF. No definite RWMAs. Mild cLVH. -Cardiology consulted - 02/03: Catheterization with NATIVIDAD placed in mid-LAD - Monitor overnight and likely DC in AM if he remains stable -Continue cardiac medications as outlined below Fatigue -Patient with 1 day history of weakness after taking his medications, though has been feeling well otherwise since discharge -Workup as follows: -Recent NSTEMI w/ PCI to distal and mid RCA 01/24/21 - s/p NATIVIDAD x 2 -Trop on discharge 0.147, not trended to peak -Admitted with troponin of 2.6, now downtrending steadily -EKG with questionable T-wave abnormalities in II, III, aVF - new, but suspect secondary to recent NSTEMI -TSH, other chemistries normal -VSS throughout admission so far -COVID-19, Influenza negative -Etiology unclear, potentially multifactorial. Elevated troponin is worrisome; though possible it is from previous event. May be contributory from metoprolol. -See plan above CAD / HTN / HLD -- with recent NSTEMI requiring PCI of the mid-RCA and now mid- LAD -Continue Metoprolol 50mg qAM -continue DAPT: ASA, Plavix -Continue Losartan 25mg BID -Continue Crestor 20mg qAM Dispo: PCU post cath/stent FEN: HH diet DVT: SCDs Code: Full (2) Hx of myocardial infarction: (3) S/P coronary artery stent placement: Admission and Anticipated Discharge Date Admission Date: January 31, 2021 Supervising Physician Co-Signing Physician Notes I also saw the patient with the resident physician confirmed kothari portions of the history and physical examination. Agree with impression and plan as noted in resident documentation. Patient seen post catheterization. He has no chest pain or shortness of breath. He does have some discomfort at his right wrist at the site of the catheterization. EXAM 113/72, 66, 17, 36.6, 97% on room air Pleasant. No acute distress. Heart regular Lungs clear Wrist: Ecchymosis consistent with catheterization; bandage in place, no active bleeding. Neurovascular function right hand within normal limits. DATA Troponin 0 0.498 A/P Coronary artery disease Status post catheterization with placement of drug-eluting stent to the mid LAD Monitor overnight, likely discharge in a.m. Dual antiplatelet therapy for 1 year (aspirin/Plavix) Continue beta-elsie and statin Else per resident documentation. Subjective Seen at bedside after cath. He is doing overall well. Complains of right wrist pain at the site of intervention--offered Tylenol but he prefers to wait at this time. Denies CP, palp, n/v, abd pain, SOB, cough. Review of Systems Review of Systems: per subjective Physical Exam Physical Exam: General: Tired, but otherwise well appearing, NAD. HEENT: NCAT. Eyes - Sclera are white, anicteric, and without injection. No JVD. Cardiac: Normal rate and regular rhythm; S1 and S2 present with no murmurs, rubs, or gallops. Pulmonary: Good respiratory effort with symmetric expansion of the chest. No use of accessory muscles. Lungs were clear to auscultation bilaterally with no crackles or wheezes. Abdominal: Normoactive bowel sounds. Abdomen was soft, nondistended, and non- tender to palpation. Results & Data Results & Data ([facility]) Vital Signs (Past 12 Hours) Vital Signs Temp Pulse Pulse Resp BP Pulse Ox 02/03/21 05:00 73 02/03/21 03:23 36.5 C 79 18 119/76 98 02/03/21 01:07 77 02/02/21 22:36 36.6 C 80 17 126/78 97 02/02/21 19:22 37.1 C 75 18 126/71 96 Resident Activity Tracking Resident Involvement: Resident Care Provided Care Provided: Adult [facility]
[2021-02-03] MEDS ORDERED: MIDAZOLAM HCL 1 MG/ML 2ML VIAL ONE (08:40)
[2021-02-03] MEDS ORDERED: HEPARIN (PORCINE) 1000 UNIT/ML 10 ML (CATH LAB USE ONLY) ONE (08:40)
[2021-02-03] MEDS ORDERED: NITROGLYCERIN/D5W 100MCG/ML 20ML SYR ONE (08:41)
[2021-02-03] MEDS ORDERED: niCARdipine HCL INJ 2.5 MG/ML 10 ML AMP ONE (08:41)
[2021-02-03] MEDS ORDERED: fentaNYL citrate 100 MCG/2 ML VIAL ONE (08:41)
[2021-02-03] MEDS ORDERED: CLOPIDOGREL BISULFATE 300 MG TAB ONE (09:08)
--- NOTE | 2021-02-03 09:26 | Pre Anesthesia Assessment ---
Date of Service February 03, 2021 Pre Sedation Assessment Vital Signs Temp Pulse Pulse Resp BP Pulse Ox 02/03/21 08:35 97.5 F L 70 16 120/80 96 02/03/21 08:25 98.4 F 70 16 119/81 96 02/03/21 08:01 97.7 F 71 18 123/69 97 02/03/21 05:00 73 02/03/21 03:23 97.7 F 79 18 119/76 98 02/03/21 01:07 77 02/02/21 22:36 97.9 F 80 17 126/78 97 02/02/21 19:22 98.8 F 75 18 126/71 96 02/02/21 16:00 69 02/02/21 11:02 97.5 F L 64 18 133/77 98 Cardiovascular RRR, no murmur, no edema Respiratory normal respiratory effort, lungs clear to auscultation Pre-Sedation Airway Assessment Smoking Status: Former smoker Hx Sleep Apnea: No Short, Thick Neck: No Thyromental Distance: > or= 3.5 Finger Breadths Oral Cavity: + WNL Mallampati Class: I ASA: ASA1 NPO Status Date of Last Intake of Fluids: 02/03/21 Time of Last Intake of Fluids: 01:00 Date of Last Intake of Solid Food: 02/02/21 Time of Last Intake of Solid Foods: 23:00 Notes The planned sedation has been discussed with the patient. Informed Consent was obtained. I have identified the patient, determined the appropriateness of sedation and have assessed the patient immediately prior to the procedure. All medicine(s) and interventions are by my order.
--- NOTE | 2021-02-03 09:28 | Cardiac Catheterization ---
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 Recently stented sites widely patent) R PDA (% Stenosis): Mid (90) R PL1 (% Stenosis): Mid (90) Diagnostic Physicians Name: Jon Benitez MD Closure Device Recommendations: PCI without planned CABG (1 year DAPT) Lesion Culprit Artery: No (unknown) Stenosis Prior to Rx (%): 90->0 with2.75x15 NATIVIDAD Pre-Procedure DONNY Flow: 3 Previously Treated Lesion: No Lesion Complexity: Non-High/Non-C Lesion Length (mm): 10 Cardiac Cath Procedure Full Procedure Date February 03, 2021 Pre-Procedure Diagnosis Pre-Procedure Diagnosis: CAD AUC Score AUC Score: 8 Post-Procedure Diagnosis Post-Procedure Diagnosis: Severe CAD, Successful PCI and Normal Intracardiac Pressures Procedure(s) Performed Procedure(s) Performed: Coronary Angiography, Left Heart Cath and Drug Eluting Stent Miner Placer Jon Benitez MD Estimated Blood Loss Estimated Blood Loss: None Summary of Findings 65 WM hx ILMI 05/2010 w PCI Circ then. Admitted more recently 01/23 w ACS (trop leak 0.147) and obvious culprit mid/distal RCA treated successfully. Sign LAD disease noted then planned for staged PCI back now readmitted 01/31 w fatigue (no CP) and troponin of 2.6 w new inferior T wave abnormalities. Echo now shows Nl LV w no RWMA EF 55-60% and mild LVH. Referred for relook based on dramatic troponin bump. Hemodynamics Rest Ao:: 120/80 Final Ao: same LV: N/A Recommendations Recommendations: PCI without planned CABG (1 year DAPT) Radiation Exposure (mGy) 747 Contrast (mls) 40 Anesthesia Concious Sedation Procedural Complication(s) None I attest to the content of the Intraoperative Record and any orders documented therein. Any exceptions are noted below. PG Care Time/CCT Total # of Minutes Spent Total Time Spent with Patient: Total time spent is greater than 50% in coordination of care (as documented) at patient's floor/unit and/or counseling patient:
[2021-02-03] MEDS: CLOPIDOGREL BISULFATE 75 MG TAB PO SCH ×2 (10:56→13:05)
[2021-02-03] MEDS: ASPIRIN 81 MG ECTAB PO SCH (13:04)
[2021-02-03] MEDS: LOSARTAN POTASSIUM 25 MG TAB PO SCH ×2 (13:04→21:21)
[2021-02-03] MEDS: ROSUVASTATIN CALCIUM 20 MG TAB PO SCH (13:04)
[2021-02-03] MEDS: MULTIVITAMIN TAB PO SCH (13:05)
[2021-02-03] MEDS: METOPROLOL SUCC 50MG EXT REL TAB PO SCH (13:06)
--- NOTE | 2021-02-03 13:52 | Electrocardiogram Report ---
Test Reason : Blood Pressure : / mmHG Vent. Rate : 073 BPM Atrial Rate : 073 BPM P-R Int : 158 ms QRS Dur : 086 ms QT Int : 376 ms P-R-T Axes : 042 -40 -14 degrees QTc Int : 414 ms Normal sinus rhythm Left axis deviation Minimal voltage criteria for LVH, may be normal variant Nonspecific T wave abnormality Abnormal ECG When compared with ECG of 02-FEB-2021 05:44, Nonspecific T wave abnormality no longer evident in Anterior leads Confirmed by Miguelito Weller ([id number]) on 02/03/2021 1:51:46 PM Referred By: REFERRED SELF Confirmed By:Tobias Weller
[2021-02-03] MEDS: MONTELUKAST SODIUM 10 MG TABLET PO SCH (21:21)
[2021-02-04 06:14] LABS: Basophils # (auto) 0.04 K/uL (0-0.2); Basophils % (auto) 0.5 %; Eosinophils # (auto) 0.21 K/uL (0-0.5); Eosinophils % (auto) 2.7 %; Hematocrit (blood only) 40.9 % (42-52); Hemoglobin 13.5 g/dL (14.0-18.0); Immature Granulocytes # (auto) 0.02 K/uL (0.00-0.02); Immature Granulocytes % (auto) 0.3 %; Lymphocytes # (auto) 1.93 K/uL (1.2-3.4); Lymphocytes % (auto) 24.5 %; Mean Corpuscular Hemoglobin 30.5 pg (25-34); Mean Corpuscular Volume 92.5 fL (80-100); Mean Platelet Volume 10.4 fL (7.4-10.4); Monocytes # (auto) 0.95 K/uL (0.11-0.59); Monocytes % (auto) 12.1 %; Neutrophils # (auto) 4.72 K/uL (1.4-6.5); Neutrophils % (auto) 59.9 %; Platelet Count 337 K/uL (130-400); RDW Coefficient of Variation 12.4 % (11.5-14.5); Red Blood Count 4.42 M/uL (4.7-6.1); White Blood Count 7.87 K/uL (4.8-10.8)
[2021-02-04 06:52] LABS: BUN Creatinine Ratio 18.3 (10-20); Calcium 8.9 mg/dl (8.5-10.1); Creatinine Clr Calc Pharmacy 65.9 ml/min; Est GFR (African American) 81.5 ml/min; Est GFR (Non-African American) 70.3 ml/min
[2021-02-04 07:05] LABS: Troponin I 0.663 ng/ml (0-0.045)
--- NOTE | 2021-02-04 07:46 | Discharge Summary ---
Date of Service February 04, 2021 Admission HPI Per Admitting Provider Patient is a 65 year old male presenting today with history of fatigue and weakness starting this morning, of note had recent NSTEMI requiring PCI to the distal and mid RCA on 01/24/21. 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 He states that up until this morning, he has had no issues. This morning roughly 1 hour after taking his medications he noticed that he was experiencing significant fatigue and weakness. He checked his BP and found himself to be ~111/70 when he had been running in the 120-130's systolic the rest of the week. He notes that he tried to lay down to rest, but because of how fatigued he was, wasn't able to fall asleep. He denies any chest pain, chest pressure, SOB, fever, chills, abdominal pain, NVD, headache. He has been taking his medications as prescribed and has not missed any doses to date. Med Hx: NSTEMI w/ PCI, Dyslipidemia, Anxiety Surg Hx: Cardiac cath 10 years ago and PCI to distal and mid RCA 01/24/21 Soc Hx: Quit tobacco use 30 years ago, had smoked for 10 years (patient unsure of amount). Drinks 1-2 beers/week, has not had alcohol in 8 months. Denies illicit drug use Fam Hx: Father IA at age 43 Principal Diagnosis Elevated troponin Discharge Exam General: Tired, but otherwise well appearing, NAD. HEENT: NCAT. Eyes - Sclera are white, anicteric, and without injection. No JVD. Cardiac: Normal rate and regular rhythm; S1 and S2 present with no murmurs, rubs, or gallops. Pulmonary: Good respiratory effort with symmetric expansion of the chest. No use of accessory muscles. Lungs were clear to auscultation bilaterally with no crackles or wheezes. Abdominal: Normoactive bowel sounds. Abdomen was soft, nondistended, and non- tender to palpation. Discharge Data Allergies Allergy/AdvReac Type Severity Reaction Status Date / Time atorvastatin Allergy Unknown mental Verified 01/31/21 18:51 disturabances ciprofloxacin Allergy Unknown SHORTNESS Verified 01/31/21 18:51 OF BREATH Sulfa (Sulfonamide Allergy Unknown Unknown Verified 01/31/21 18:51 Antibiotics) metronidazole AdvReac Intermediate COBNFUSION Verified 01/31/21 18:51 Consultations 01/31/21 18:37 ED Decision to Admit Stat 02/01/21 10:58 Consult Cardiology Routine Procedures Performed Operation Date: 02/03/21 08:30 Actual Procedures s Cineradiography w/Routine Exam - Jon Benitez MD p Drug Eluting Stent SGl Vessel - Jon Benitez MD p Cath, Coronaries ONLY (no LV) - Jax Weber MD Ordered Studies 02/03/21 07:21 CL Cath Imgs for PACS use only Routine Hospital Course (1) Fatigue: Patient is a 65 year old male with recent history of NSTEMI requiring PCI to distal-mid RCA on 01/24 who presented to [facility] on 01/31 for fatigue and weakness on day of admission. His troponin on admission was appreciable. Elevated Troponin -- in setting of NSTEMI requiring PCI approx. 6 days prior to admission -Recent NSTEMI w/ PCI to distal and mid RCA 01/24/21 - s/p NATIVIDAD x 2, with previous contemplation about staged procedure for mid-LAD stenosis -Work-up as follows: -Troponin on admission 2.6 --> has subsequently downtrended -ECG on admission demonstrating new TWIs in the inferior leads compared to previous -TTE: Normal LVEF. No definite RWMAs. Mild cLVH. -Cardiology consulted - 02/03: Catheterization with NATIVIDAD placed in mid-LAD - Remained stable overnight after cath -- plan to DC home with cardiology f/u - Continue cardiac medications as outlined below CAD / HTN / HLD -- with recent NSTEMI requiring PCI of the mid-RCA and now mid- LAD -Metoprolol succinate decreased to 25mg daily from 50mg due to patient reporting significant fatigue related to that dose -continue DAPT: ASA, Plavix at least one year -Continue Losartan 25mg BID -Continue Crestor 20mg qAM Fatigue -Patient with 1 day history of weakness after taking his medications, though has been feeling well otherwise since discharge -Workup as follows: -Recent NSTEMI w/ PCI to distal and mid RCA 01/24/21 - s/p NATIVIDAD x 2 -Trop on discharge 0.147, not trended to peak -Admitted with troponin of 2.6, downtrending steadily -EKG with questionable T-wave abnormalities in II, III, aVF - new, but suspect secondary to recent NSTEMI -TSH, other chemistries normal -VSS throughout admission so far -COVID-19, Influenza negative -Etiology unclear, potentially multifactorial. Patient feels metoprolol was main contributor and prefers to decrease dose -See plan above Dispo: Home, self-care. Cardiology and PCP F/U (2) Hx of myocardial infarction: (3) S/P coronary artery stent placement: Total Time Total Time Spent Total Time Spent (In Minutes): I spent 35 minutes answering the patient's questions, reviewing consultations and data, and documentation. Discharge Plan Discharge Items Patient Disposition: Home - Self-Care Reason For Visit: FATIGUE, RECENT CARDIAC STENT, ELEVATED TROP Discharge Diagnosis: Elevated troponin Activity: Per Instructions section Non-emergency contact: Primary Care Provider and Traveling Engineer Call non-emergency contact if: you have any medication questions and your symptoms worsen Follow-up/Referrals: Ned Singh DO [Primary Care Provider] - 02/06/21 11:00 am Diet: Heart Healthy Addtl Attending Provider Instructions: You came to [facility] due to fatigue and weakness. You were found to have troponin elevation. As such, cardiology was consulted and recommended catheterization for further evaluation. You were found to have a blockage of your mid LAD artery. A drug-eluting stent was placed and you were continued on metoprolol, aspirin, Plavix, losartan, and Crestor for treatment. You will take the following doses: * Metoprolol succinate 25mg daily * Aspirin 81mg daily * Plavix 75mg daily * Losartan 25mg daily * Rosuvastatin 20mg daily Please continue these medications as prescribed. Follow-up with cardiology as scheduled. We also recommend that you follow-up with your PCP for discussion of your hospitalization and care going forward. Pending Studies at Discharge: No Stand-Alone Forms: [facility], Smoking Cessation Medications and DC Order Prescriptions: New metoprolol succinate 25 mg Tablet Extended Release 24 Hr 25 mg PO QAM 30 Days Qty: 30 RF: 0 Continued losartan 25 mg tablet 25 mg PO BID Qty: 180 RF: 3 multivitamin Tablet 1 tab PO DAILY RF: 0 saw palmetto 160 mg Capsule 160 mg PO QAM RF: 0 montelukast 10 mg tablet 10 mg PO HS RF: 0 Flovent HFA 110 mcg/actuation HFA aerosol inhaler 2 puff inhalation BID PRN (Reason: Shortness Of Breath Or Wheezing) RF: 0 nitroglycerin 0.4 mg tablet, sublingual 0.4 mg sublingual UD PRN (Reason: Chest Pain) RF: 0 aspirin [Aspirin Low Dose] 81 mg Tablet,Delayed Release (Dr/Ec) 81 mg PO QAM RF: 0 clopidogrel 75 mg Tablet 75 mg PO QAM 30 Days Qty: 30 RF: 0 rosuvastatin [Crestor] 20 mg Tablet 20 mg PO QAM 30 Days Qty: 30 RF: 0 Discontinued metoprolol succinate 50 mg Tablet Extended Release 24 Hr 50 mg PO QAM 30 Days Qty: 30 RF: 0 Discharge Orders: Discharge Order (Routine); Ordered 02/04/21 Ordered By: Sae Vogt Admission Data Admit Date/Time: 01/31/21 19:47 Attending Provider: Rex Edgar Admit Provider: Cory Brooks Primary Care Provider: Ned Singh Other Providers: Leilani Webb ; Javier Galvez ; Julio Cesar Madden ; Gennaro Panda ; Fabiano Alvarado ; Alvino Juan Jr ; Enrique Vallejo ; Kristin Renteria ; Karley Parson ; Jax Weber ; Jax Weller ; Lan Aguirre ; Gina Wilson ; Nithya Sanderson ; Mal Dumont ; Jon Benitez Michael K. Other Interventions: Discharge Summary Assessment (RN) Last Done: 02/04/21 08:49 Supervising Physician Co-Signing Physician Notes I also saw the patient with the resident physician confirmed kothari portions of the history and physical examination. Agree with impression and plan as noted in resident documentation. I also personally discussed the case with the aviation consultant. Patient without chest pain or shortness of breath overnight. He has no complaints this morning but several questions regarding medications and return to work/activities EXAM 125/75, 86, 17, 36.5, 96% room air Pleasant. No acute distress. 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 Resident Activity Tracking Resident Involvement: Resident Care Provided Care Provided: Adult Hospital Medicine
[2021-02-04] MEDS: LOSARTAN POTASSIUM 25 MG TAB PO SCH (07:57)
[2021-02-04] MEDS: CLOPIDOGREL BISULFATE 75 MG TAB PO SCH (07:57)
[2021-02-04] MEDS: ROSUVASTATIN CALCIUM 20 MG TAB PO SCH (07:58)
[2021-02-04] MEDS: METOPROLOL SUCC 50MG EXT REL TAB PO SCH ×4 (07:58→09:57)
[2021-02-04] MEDS: ASPIRIN 81 MG ECTAB PO SCH (07:59)
[2021-02-04] MEDS: MULTIVITAMIN TAB PO SCH (07:59)
[2021-02-05] MEDS ORDERED: METOPROLOL SUCC 25MG EXT REL TAB PO SCH (09:00)
== END 2021-02-04 12:50 | disposition home or self-care (01) | DRG 247 ==
LOC: ED 14:31 → 2N 19:47 → SUATTDRO 19:47 → 2N 21:29 → 2S 02-03 11:57
PROC: CLB.CCO (2021-02-03 08:30)